=== PATIENT | female | born 1955 | race African-American/Black ===

== ENCOUNTER 2017-08-22 08:21 | Observation (INO) | payer OTHER ==
--- NOTE | 2017-08-22 08:57 | DR.GENAD ---
HPI - PCP Primary Care Physician: JEANIE - Complaint/Symptoms Chief Complaint Doctors Comments: Patient with a history of osteoarthritis of the left hip joint. She states that the tramadol is taking is not helping. Her pain level is 10/10, worse with movement,sharp and severe. Chief Complaint:: PT C/O LT HIP PAIN. PT STATES THE PAIN STARTED THIS AM AT 2AM. PT STATES SHE HAS NOT BEEN ABLE TO AMBULATE WITHOUT SEVERE PAIN. - Source History Provided: Patient - Mode of Arrival Mode of Arrival: EMS - Timing Onset of Chief Complaint: 08/22/17 PMH - PMH Past Medical History: Yes Past Medical History: Angina, Hypertension, Diabetes, Arthritis Past Surgical History: Yes Surgical History: [employer] Surgery - Family History History of Family Medical Conditions: Yes Family Medical History: Diabetes Mellitus, [place], Sudden Cardiac , Hypertension - Social History Does any household member use tobacco: No Alcohol Use: None Do you use any recreational Drugs:: No Lives With: Family Lives Where: Home - infectious screening In the last 2 months have you had wt loss of >10#?: NO Have you had fever, night sweats or hemotysis?: No Have you traveled outside the country in the last 6 months?: No Isolation: Standard ROS - Review of Systems Eyes: No Symptoms Reported ENTM: No Symptoms Reported Respiratoy: No Symptoms Reported Cardiovascular: No Symptoms Reported Gastrointestinal/Abdominal: No Symptoms Reported Genitourinary: No Symptoms Reported Neurological: No Symptoms Reported Musculoskeletal: No Symptoms Reported Integumentary: No Symptoms Reported Hematologic/Lymphatic: No Symptoms Reported Endocrine: No Symptoms Reported Psychiatric: No Symptoms Reported All Other Systems: Reviewed and Negative PE - Vital Signs Vitals: Temperature 99.7 F Pulse Rate 88 Respiratory Rate 18 Blood Pressure [Right Arm] 150/67 Blood Pressure 186/80 O2 Sat by Pulse Oximetry 96 - General Limitations: No Limitations General Appearance: Alert, In No Apparent Distress - Head Head Exam: Normal Inspection, Atraumatic - Eyes Eye exam: Normal Appearance, PERRL, EOMI - ENT ENT Exam: Normal Exam External Ear Exam: Normal External Inspection TM/Canal Exam: Bilateral Normal Nose Exam: Normal Nose Exam Mouth Exam: Normal Inspection Throat Exam: Normal Inspection - Neck Neck Exam: Normal Inspection - Chest Chest Inspection: Normal Inspection - Respiratory Respiratory Exam: Normal Lung Sounds Bilat Respiratory Exam: Bilateral Clear to Auscultation - Cardiovascular Cardiovascular Exam: Regular Rate, Normal Rhythm - Abdominal Exam Abdominal Exam: Normal Inspection, Normal Bowel Sounds Abdominal Tenderness: negative: RUQ, RLQ, LUQ, LLQ, Epigastrium, Suprapubic, Diffuse, Mild, Moderate, Severe, Other - Extremities Extremities Exam: Normal Inspection, Full ROM - Back Back Exam: Normal Inspection, Full ROM - Neurologic Neurological Exam: Alert, Oriented X3, CN II-XII Intact - Psychiatric Psychiatric Exam: Normal Affect - Skin Skin Exam: Warm, Dry, Intact MDM - Additional Information Additional Information Obtained From: Old Records Findings: generalized degenerative joint disease Course - Reevaluation 1st: Improved - Diagnosis Discharge Problem: Degenerative joint disease of left hip Qualifiers: Osteoarthritis type: unspecified Qualified Code(s): M16.12 - Unilateral primary osteoarthritis, left hip - Discharge Plan Condition: Stable - Follow ups/Referrals Follow ups/Referrals: EARL WARE [Primary Care Provider] - 3 days - Instructions
[2017-08-22] MEDS ORDERED: DEMEROL INJ IM ONE (08:59)
[2017-08-22] MEDS ORDERED: DEMEROL INJ ONE (09:00)
--- NOTE | 2017-08-22 09:53 | RAD ---
HISTORY: Diabetes Study: Single-view chest Comparison: None Findings: The trachea is midline. The cardiac silhouette is unremarkable. The lungs demonstrate a left basila r opacity concerning for pneumonia.. The bony thorax is unremarkable. IMPRESSION: 1. Probable early left lower lobe pneumonia. Reported By:
[2017-08-22] MEDS ORDERED: POTASSIUM CHLORIDE INJ 20 MEQ VIAL IV ONE (09:59)
[2017-08-22] MEDS ORDERED: D50W ABBOJECT SYR ONE (09:59)
[2017-08-22] MEDS ORDERED: ROCEPHIN VIAL 1 GM IM ONE (10:19)
[2017-08-22] MEDS ORDERED: XYLOCAINE 1 % (PLAIN) ONE (10:20)
[2017-08-22] MEDS ORDERED: ROCEPHIN VIAL 1 GM ONE (10:20)
[2017-08-22] MEDS ORDERED: SALINE 3% 15 ML NEB TX ONE (11:08)
[2017-08-22 11:10] LABS: BASOPHILS # (AUTO) 0.1 X10^3/uL (0.0-0.1); BASOPHILS % (AUTO) 0.9 % (0.2-1.0); HEMATOCRIT 40.5 % (36.0-47.0); HEMOGLOBIN 13.5 g/dL (12.0-16.0); LYMPHOCYTES # (AUTO) 1.8 X10^3/uL (1.3-2.9); LYMPHOCYTES % (AUTO) 14.2 % (21.0-51.0); MEAN CORPUSCULAR HEMOGLOBIN 27.2 pg (27.0-34.0); MEAN CORPUSCULAR HGB CONC 33.4 g/dL (33.0-35.0); MEAN CORPUSCULAR VOLUME 81.4 fL (80.0-100.0); MEAN PLATELET VOLUME 8.7 fL (7.4-11.0); MONOCYTES # (AUTO) 0.9 x10^3/uL (0.3-0.8); MONOCYTES % (AUTO) 6.9 % (0.0-13.0); NEUTROPHILS # (AUTO) 9.7 x10^3/uL (2.2-4.8); PLATELET COUNT 203 X10^3/uL (150.0-450.0); RED BLOOD COUNT 4.98 X10^6/uL (3.5-5.4); RED CELL DISTRIBUTION WIDTH 14.2 % (11.6-16.5); WHITE BLOOD COUNT 12.4 X10^3/uL (3.6-10.0)
[2017-08-22] MEDS ORDERED: SALINE 3% 15 ML NEB TX NEB ONE (11:12)
[2017-08-22 11:14] LABS: ALBUMIN 3.2 g/dL (3.4-5.0); CALCIUM 9.3 mg/dL (8.5-10.1); CARBON DIOXIDE 26.7 mmol/L (21-32); COR CA(FOR HYPOALB) 9.9 mg/dL (8.5-10.1); CREATININE 1.21 mg/dL (0.55-1.02); TOTAL PROTEIN 7.6 g/dL (6.4-8.2)
[2017-08-22] MEDS ORDERED: TYLENOL 325 MG TAB PO PRN (11:23)
[2017-08-22] MEDS ORDERED: TUSSIONEX PENNKINETIC SUSP PO PRN (11:37)
[2017-08-22] MEDS ORDERED: NITROSTAT SL PRN (11:41)
[2017-08-22] MEDS ORDERED: ZOFRAN TAB 4 MG PO PRN (11:41)
[2017-08-22] MEDS ORDERED: NS 1/2 1000 ML IV 1,000 ML IV SCH (12:00)
[2017-08-22] MEDS: DUONEB 0.5 MG/3 MG NEB SCH ×3 (14:08→21:00)
[2017-08-22] MEDS: NEURONTIN CAP 300 MG PO SCH ×2 (15:29→15:33)
[2017-08-22] MEDS: TRAMADOL HCL PO SCH ×2 (15:30→17:48)
[2017-08-22] MEDS ORDERED: NS 1/2 1000 ML IV 1,000 ML IV ONE (15:42)
[2017-08-22] MEDS: NS IV SCH ×2 (15:59)
[2017-08-22] MEDS: POTASSIUM ACETATE IV SCH ×2 (15:59)
[2017-08-22] MEDS: ROBITUSSIN DM PO SCH ×2 (17:52→21:25)
[2017-08-22] MEDS: ULTRAM PO SCH (21:16)
[2017-08-22] MEDS: PRED FORTE 1 % OP SCH (21:16)
[2017-08-22] MEDS: COMBIGAN EYE DROPS EACHEYE SCH (21:23)
[2017-08-22] MEDS: MIRALAX POWDER (1 DOSE 17GM) PO SCH (21:25)
[2017-08-22] MEDS: VIBRAMYCIN 100 MG in NS 100 ML IV + SPIKE MINIBAG* 100 ML IV SCH (21:25)
[2017-08-22] MEDS: ZANTAC PO SCH (22:44)
[2017-08-23] MEDS: PRED FORTE 1 % OP SCH ×2 (00:44→07:56)
[2017-08-23] MEDS: NEURONTIN CAP 300 MG PO SCH ×2 (00:44→05:35)
[2017-08-23] MEDS: DUONEB 0.5 MG/3 MG NEB SCH ×6 (01:40→20:22)
[2017-08-23] MEDS: ULTRAM PO SCH ×4 (02:24→21:19)
[2017-08-23] MEDS: POTASSIUM ACETATE IV SCH ×2 (04:28)
[2017-08-23] MEDS: NS IV SCH ×2 (04:28)
[2017-08-23 05:41] LABS: BASOPHILS % (AUTO) 0.4 % (0.2-1.0); EOSINOPHILS # (AUTO) 0.1 x10^3/uL (0.0-0.2); HEMATOCRIT 35.2 % (36.0-47.0); HEMOGLOBIN 11.8 g/dL (12.0-16.0); LYMPHOCYTES # (AUTO) 2.3 X10^3/uL (1.3-2.9); LYMPHOCYTES % (AUTO) 21.8 % (21.0-51.0); MEAN CORPUSCULAR HEMOGLOBIN 27.2 pg (27.0-34.0); MEAN CORPUSCULAR HGB CONC 33.5 g/dL (33.0-35.0); MEAN CORPUSCULAR VOLUME 81.3 fL (80.0-100.0); MEAN PLATELET VOLUME 9.1 fL (7.4-11.0); MONOCYTES # (AUTO) 0.9 x10^3/uL (0.3-0.8); MONOCYTES % (AUTO) 8.7 % (0.0-13.0); NEUTROPHILS # (AUTO) 7.3 x10^3/uL (2.2-4.8); NEUTROPHILS % (AUTO) 68.1 % (42.0-75.0); PLATELET COUNT 171 X10^3/uL (150.0-450.0); RED BLOOD COUNT 4.33 X10^6/uL (3.5-5.4); RED CELL DISTRIBUTION WIDTH 14.1 % (11.6-16.5); WHITE BLOOD COUNT 10.7 X10^3/uL (3.6-10.0)
[2017-08-23 05:49] LABS: ALBUMIN 2.6 g/dL (3.4-5.0); CALCIUM 8.5 mg/dL (8.5-10.1); CARBON DIOXIDE 27.9 mmol/L (21-32); COR CA(FOR HYPOALB) 9.6 mg/dL (8.5-10.1); CREATININE 1.19 mg/dL (0.55-1.02); TOTAL PROTEIN 6.8 g/dL (6.4-8.2)
--- NOTE | 2017-08-23 06:06 | RAD ---
Examination: Portable AP chest History: Cough Comparison reference 08/22/2017 Findings: Persistent normal heart size with retrocardiac density consistent with airspace disease. Sl ight improvement is suggested, however. No new abnormality identified. Impression: Persistent left lower lobe infiltrate with slight interval improvement. Reported By:
[2017-08-23] MEDS ORDERED: NEURONTIN CAP 300 MG PO PRN (08:02)
[2017-08-23] MEDS: VIBRAMYCIN 100 MG in NS 100 ML IV + SPIKE MINIBAG* 100 ML IV SCH ×2 (08:55→21:18)
[2017-08-23] MEDS: ROBITUSSIN DM PO SCH ×4 (08:56→21:18)
[2017-08-23] MEDS: MIRALAX POWDER (1 DOSE 17GM) PO SCH ×2 (08:56→21:22)
[2017-08-23] MEDS: CHLORTHALIDONE PO SCH (08:57)
[2017-08-23] MEDS: NexIUM PO SCH ×2 (08:57→08:58)
[2017-08-23] MEDS: ZANTAC PO SCH ×2 (08:57→21:19)
[2017-08-23] MEDS ORDERED: CATAPRES TAB 0.1 MG PO SCH (09:00)
[2017-08-23] MEDS ORDERED: ROCEPHIN VIAL 1 GM 1 GM in NS 50 ML IV + SPIKE MINIBAG* 50 ML IV SCH ×2 (09:00→09:30)
[2017-08-23] MEDS: ROCEPHIN 1 GM IV PREMIX 1 GM/50 ML IV.SOLN. IV SCH (11:52)
[2017-08-23 14:44] VITALS: BMI 38.6
[2017-08-23] MEDS: NS 1/2 + KCL 20 MEQ/L 1,000 ML IV SCH (15:09)
[2017-08-23] MEDS ORDERED: CATAPRES TAB 0.1 MG PO PRN (15:34)
[2017-08-23] MEDS: COMBIGAN EYE DROPS EACHEYE SCH ×2 (17:42→21:21)
[2017-08-24] MEDS: DUONEB 0.5 MG/3 MG NEB SCH ×5 (01:02→17:01)
[2017-08-24] MEDS: NS 1/2 + KCL 20 MEQ/L 1,000 ML IV SCH ×2 (03:21→15:29)
[2017-08-24] MEDS: ULTRAM PO SCH ×3 (03:21→13:45)
[2017-08-24 07:20] LABS: BASOPHILS % (AUTO) 0.4 % (0.2-1.0); EOSINOPHILS # (AUTO) 0.1 x10^3/uL (0.0-0.2); HEMATOCRIT 33.3 % (36.0-47.0); HEMOGLOBIN 11.1 g/dL (12.0-16.0); LYMPHOCYTES # (AUTO) 2.3 X10^3/uL (1.3-2.9); MEAN CORPUSCULAR HEMOGLOBIN 27.2 pg (27.0-34.0); MEAN CORPUSCULAR HGB CONC 33.3 g/dL (33.0-35.0); MEAN CORPUSCULAR VOLUME 81.7 fL (80.0-100.0); MEAN PLATELET VOLUME 9.4 fL (7.4-11.0); MONOCYTES # (AUTO) 0.7 x10^3/uL (0.3-0.8); MONOCYTES % (AUTO) 8.3 % (0.0-13.0); NEUTROPHILS # (AUTO) 5.7 x10^3/uL (2.2-4.8); NEUTROPHILS % (AUTO) 64.3 % (42.0-75.0); PLATELET COUNT 142 X10^3/uL (150.0-450.0); RED BLOOD COUNT 4.08 X10^6/uL (3.5-5.4); RED CELL DISTRIBUTION WIDTH 14.5 % (11.6-16.5); WHITE BLOOD COUNT 8.9 X10^3/uL (3.6-10.0)
[2017-08-24 07:29] LABS: BLOOD UREA NITROGEN 17 mg/dL (7-18); CALCIUM 8.4 mg/dL (8.5-10.1); CARBON DIOXIDE 29.5 mmol/L (21-32); CHLORIDE 95 mmol/L (98-107); COR NA(FOR HYPERGLY) 139 mmol/L (136-145); CREATININE 1.16 mg/dL (0.55-1.02); SODIUM 132 mmol/L (136-145); eGFR BLACK RACES > 60 (>60); eGFR NON BLACK RACES 50 (>60)
[2017-08-24 08:02] LABS: ALANINE AMINOTRANSFERASE 32 Units/L (12-78); ALBUMIN 2.7 g/dL (3.4-5.0); ALKALINE PHOSPHATASE 96 Units/L (46-116); ASPARTATE AMINO TRANSFERASE 51 Units/L (15-37); COR CA(FOR HYPOALB) 9.4 mg/dL (8.5-10.1); TOTAL PROTEIN 6.8 g/dL (6.4-8.2)
[2017-08-24] MEDS: VIBRAMYCIN 100 MG in NS 100 ML IV + SPIKE MINIBAG* 100 ML IV SCH (08:56)
[2017-08-24] MEDS: ROBITUSSIN DM PO SCH ×3 (08:56→16:48)
[2017-08-24] MEDS: ZANTAC PO SCH (08:56)
[2017-08-24] MEDS: CHLORTHALIDONE PO SCH (08:58)
[2017-08-24] MEDS: NexIUM PO SCH ×2 (08:58→09:00)
[2017-08-24] MEDS: ROCEPHIN 1 GM IV PREMIX 1 GM/50 ML IV.SOLN. IV SCH (09:01)
[2017-08-24] MEDS: COMBIGAN EYE DROPS EACHEYE SCH (09:01)
[2017-08-24] MEDS: MIRALAX POWDER (1 DOSE 17GM) PO SCH (09:01)
[2017-08-24 16:21] VITALS: BP 183/82
== END 2017-08-24 19:45 | disposition home or self-care (01) ==
LOC: ER 08:32 → MED/SURG 11:35
PROVIDERS: ADMIT Internal Medicine; ATTEND Internal Medicine
DX: J18.9 Pneumonia, unspecified organism (principal); M16.12 Unilateral primary osteoarthritis, left hip; I10 Essential (primary) hypertension; E11.9 Type 2 diabetes mellitus without complications
CPT/HCPCS: 36415; 71010; 71020; 80053; 82947; 85025; 87040; 87070; 87205; 94640; 94760; 96365; 96372; 99217; 99218; 99284; 99285; A4222; J7030; G0378; J0696; J1815; J2001; J2175; J3480; J3490; J7620

== ENCOUNTER 2017-11-24 09:29 | Emergency (ER) | payer OTHER, MEDICAID ==
[2017-11-24 09:41] VITALS: BP 131/69; BMI 37.9
[2017-11-24] MEDS ORDERED: BENTYL I.M. INJ 10 MG IM ONE ×2 (10:22→10:27)
[2017-11-24] MEDS ORDERED: NS 1000 ML 1,000 ML IV ONE (10:22)
[2017-11-24] MEDS ORDERED: LEVSIN/MAALOX/LIDOC VISC PO ONE (10:23)
--- NOTE | 2017-11-24 10:23 | ED.ABDFE ---
HPI - Time seen Time seen: 10:18 - PCP Primary Care Physician: LORAINE - Complaint Chief Complaint Doctors Comments: Patient presents with complaint of vomiting x 3 on last night and diarrhea. She denies fever. She admits to a history of GERD takes zofran. Chief Complaint:: PT BEEN UP ALL NIGHT WITH DIARREHA , VOMITING AND ABD. PAIN. - Source History Provided: Patient, Family Member - Mode of arrival Mode of Arrival: Wheelchair - Timing Onset of Chief Complaint: 11/24/17 PMH - PMH Past Medical History: Yes Past Medical History: Angina, Hypertension, Diabetes, Arthritis Past Surgical History: Yes Surgical History: Cholecystectomy, [employer] Surgery - Family History History of Family Medical Conditions: Yes Family Medical History: Diabetes Mellitus, Hypertension - Social History Does any household member use tobacco: No Alcohol Use: None Do you use any recreational Drugs:: No Lives With: Family Lives Where: Home - infectious screening In the last 2 months have you had wt loss of >10#?: NO Have you had fever, night sweats or hemotysis?: No Have you traveled outside the country in the last 6 months?: No Isolation: Standard ROS - Review of Systems Eyes: No Symptoms Reported ENTM: No Symptoms Reported Respiratoy: No Symptoms Reported Cardiovascular: No Symptoms Reported Gastrointestinal/Abdominal: No Symptoms Reported Genitourinary: No Symptoms Reported Neurological: No Symptoms Reported Musculoskeletal: No Symptoms Reported Integumentary: No Symptoms Reported Hematologic/Lymphatic: No Symptoms Reported Endocrine: No Symptoms Reported Psychiatric: No Symptoms Reported All Other Systems: Reviewed and Negative PE - Vital Signs Vitals: Temperature 97.1 F Pulse Rate 71 Respiratory Rate 22 Blood Pressure [Left Arm] 134/72 Blood Pressure [Right Arm] 183/82 Blood Pressure 131/69 O2 Sat by Pulse Oximetry 98 - General Limitations: No Limitations General Appearance: Alert, In No Apparent Distress - Head Head Exam: Normal Inspection, Atraumatic - Eyes Eye exam: Normal Appearance, PERRL, EOMI - ENT ENT Exam: Normal Exam - Neck Neck Exam: Normal Inspection - Chest Chest Inspection: Normal Inspection - Respiratory Respiratory Exam: Normal Lung Sounds Bilat Respiratory Exam: Bilateral Clear to Auscultation - Cardiovascular Cardiovascular Exam: Regular Rate, Normal Rhythm - Abdominal Exam Abdominal Exam: Normal Inspection Abdominal Tenderness: negative: RUQ, RLQ, LUQ, LLQ, Epigastrium, Suprapubic, Diffuse, Mild, Moderate, Severe, Other - Rectal Rectal Exam: Deferred - Back Back Exam: Normal Inspection - Extremeties Extremities Exam: Normal Inspection, Full ROM - External Exam: Female: Deferred : Speculum Exam (Female): Deferred : Bimanual Exam (female): Deferred - Neurologic Neurological Exam: Alert, Oriented X3, CN II-XII Intact - Psychiatric Psychiatric Exam: Normal Affect, Normal Mood - Skin Skin Exam: Warm, Dry Course - Reevaluation 1st: Improved - Education/Counseling Educated On: Treatment, Diagnosis, Prognosis, Needs for Follow Up ROR - Labs Reviewed Result Diagrams: 11/24/17 11:00 11/24/17 11:00 Laboratory: WBC 7.5 X10^3/uL (3.6-10.0) 11/24/17 11:00 RBC 6.05 X10^6/uL (3.5-5.4) H 11/24/17 11:00 Hgb 16.5 g/dL (12.0-16.0) H 11/24/17 11:00 Hct 49.7 % (36.0-47.0) H 11/24/17 11:00 MCV 82.2 fL (80.0-100.0) 11/24/17 11:00 MCH 27.3 pg (27.0-34.0) 11/24/17 11:00 MCHC 33.2 g/dL (33.0-35.0) 11/24/17 11:00 RDW 14.0 % (11.6-16.5) 11/24/17 11:00 Plt Count 266 X10^3/uL (150.0-450.0) 11/24/17 11:00 MPV 9.1 fL (7.4-11.0) 11/24/17 11:00 Neut % 61.3 % (42.0-75.0) 11/24/17 11:00 Lymph % 33.9 % (21.0-51.0) 11/24/17 11:00 [place]ton % 3.7 % (0.0-13.0) 11/24/17 11:00 Eos % 0.6 % (0.9-2.9) L 11/24/17 11:00 Baso % 0.5 % (0.2-1.0) 11/24/17 11:00 Neut # 4.6 x10^3/uL (2.2-4.8) 11/24/17 11:00 Lymph # 2.5 X10^3/uL (1.3-2.9) 11/24/17 11:00 Carlton # 0.3 x10^3/uL (0.3-0.8) 11/24/17 11:00 Eos # 0.0 x10^3/uL (0.0-0.2) 11/24/17 11:00 Baso # 0.0 X10^3/uL (0.0-0.1) 11/24/17 11:00 Absolute Nucleated RBC 0.2 /100WBC 11/24/17 11:00 Sodium 131 mmol/L (136-145) L 11/24/17 11:00 Corrected Sodium 138 mmol/L (136-145) 11/24/17 11:00 Potassium 3.6 mmol/L (3.5-5.1) 11/24/17 11:00 Chloride 95 mmol/L (98-107) L 11/24/17 11:00 Carbon Dioxide 24.9 mmol/L (21-32) 11/24/17 11:00 BUN 11 mg/dL (7-18) 11/24/17 11:00 Creatinine 1.24 mg/dL (0.55-1.02) H 11/24/17 11:00 Est GFR (MDRD) Af Amer 57 (>60) L 11/24/17 11:00 Est GFR (MDRD) Non-Af 47 (>60) L 11/24/17 11:00 Glucose 406 mg/dL (65-99) H 11/24/17 11:00 Calcium 8.8 mg/dL (8.5-10.1) 11/24/17 11:00 Corrected Calcium 9.4 mg/dL (8.5-10.1) 11/24/17 11:00 Total Bilirubin 0.50 mg/dL (0.2-1.0) 11/24/17 11:00 AST 15 Units/L (15-37) 11/24/17 11:00 ALT 11 Units/L (12-78) L 11/24/17 11:00 Alkaline Phosphatase 87 Units/L (46-116) 11/24/17 11:00 Total Protein 7.6 g/dL (6.4-8.2) 11/24/17 11:00 Albumin 3.2 g/dL (3.4-5.0) L 11/24/17 11:00 Globulin 4.4 g/dL (2.5-4.5) 11/24/17 11:00 Albumin/Globulin Ratio 0.7 Ratio (1.1-2.1) L 11/24/17 11:00 H. pylori IgG Antibody Positive (NEGATIVE) A 11/24/17 11:00 - Diagnosis Discharge Problem: Helicobacter pylori gastritis - Discharge Plan Condition: Stable Prescriptions: Amoxicillin [AMOXIL CAP 500 MG *] 1,000 mg PO BID #56 cap Clarithromycin [CLARITHROMYCIN 500 MG TAB *] 500 mg PO Q12H #28 tab Lansoprazole [Lansoprazole 30 mg] 30 mg PO DAILY #30 cap - Follow ups/Referrals Follow ups/Referrals: EARL WARE [Primary Care Provider] - 3 days - Instructions
[2017-11-24] MEDS ORDERED: NS 1000 ML 1,000 ML ONE (10:26)
[2017-11-24] MEDS ORDERED: LEVSIN/MAALOX/LIDOC VISC ONE (10:27)
[2017-11-24 11:25] LABS: BASOPHILS % (AUTO) 0.5 % (0.2-1.0); EOSINOPHILS % (AUTO) 0.6 % (0.9-2.9); HEMATOCRIT 49.7 % (36.0-47.0); HEMOGLOBIN 16.5 g/dL (12.0-16.0); LYMPHOCYTES # (AUTO) 2.5 X10^3/uL (1.3-2.9); LYMPHOCYTES % (AUTO) 33.9 % (21.0-51.0); MEAN CORPUSCULAR HEMOGLOBIN 27.3 pg (27.0-34.0); MEAN CORPUSCULAR HGB CONC 33.2 g/dL (33.0-35.0); MEAN CORPUSCULAR VOLUME 82.2 fL (80.0-100.0); MEAN PLATELET VOLUME 9.1 fL (7.4-11.0); MONOCYTES # (AUTO) 0.3 x10^3/uL (0.3-0.8); MONOCYTES % (AUTO) 3.7 % (0.0-13.0); NEUTROPHILS # (AUTO) 4.6 x10^3/uL (2.2-4.8); NEUTROPHILS % (AUTO) 61.3 % (42.0-75.0); PLATELET COUNT 266 X10^3/uL (150.0-450.0); RED BLOOD COUNT 6.05 X10^6/uL (3.5-5.4); WHITE BLOOD COUNT 7.5 X10^3/uL (3.6-10.0)
[2017-11-24 11:33] LABS: ALBUMIN 3.2 g/dL (3.4-5.0); CALCIUM 8.8 mg/dL (8.5-10.1); CARBON DIOXIDE 24.9 mmol/L (21-32); COR CA(FOR HYPOALB) 9.4 mg/dL (8.5-10.1); CREATININE 1.24 mg/dL (0.55-1.02); TOTAL PROTEIN 7.6 g/dL (6.4-8.2)
[2017-11-24] MEDS ORDERED: HumuLIN R SUBCUT ONE (11:40)
[2017-11-24] MEDS ORDERED: HumuLIN R ONE (11:50)
[2017-11-24] MEDS ORDERED: SNACK - Diabetic Appropriate PO SCH (20:00)
== END 2017-11-24 12:48 | disposition home or self-care (01) ==
LOC: ER 10:04
DX: R10.84 Generalized abdominal pain (principal); B96.81 Helicobacter pylori [H. pylori] as the cause of diseases classified elsewhere
CPT/HCPCS: 36415; 80053; 85025; 86677; 96365; 96372; 99282; 99283; A4222; J0500; J1815

== ENCOUNTER 2017-12-16 12:33 | Inpatient (IN) | payer OTHER, MEDICAID ==
[2017-12-16 16:16] VITALS: BMI 38.9
[2017-12-16] MEDS: DUONEB 0.5 MG/3 MG NEB SCH ×2 (16:41→21:17)
[2017-12-16] MEDS ORDERED: NS 250 ML IV 250 ML IV ONE (17:33)
[2017-12-16] MEDS ORDERED: ZITHROMAX INJ 500 MG VIAL IV ONE (17:34)
[2017-12-16] MEDS: CATAPRES TAB 0.1 MG PO PRN (17:42)
[2017-12-16] MEDS: CHLORTHALIDONE PO SCH (17:42)
[2017-12-16] MEDS: HumuLIN R SUBCUT PRN ×2 (17:42→21:22)
[2017-12-16] MEDS: ROBITUSSIN DM PO SCH ×2 (17:42→21:20)
[2017-12-16] MEDS: ZITHROMAX INJ 500 MG VIAL 500 MG in NS 250 ML IV 250 ML IV SCH (17:44)
[2017-12-16] MEDS: COMBIGAN EYE DROPS EACHEYE SCH ×2 (17:45→21:47)
[2017-12-16 17:47] LABS: BASOPHILS # (AUTO) 0.1 X10^3/uL (0.0-0.1); BASOPHILS % (AUTO) 1.1 % (0.2-1.0); EOSINOPHILS # (AUTO) 0.1 x10^3/uL (0.0-0.2); HEMATOCRIT 37.6 % (36.0-47.0); HEMOGLOBIN 12.7 g/dL (12.0-16.0); LYMPHOCYTES # (AUTO) 3.7 X10^3/uL (1.3-2.9); LYMPHOCYTES % (AUTO) 57.7 % (21.0-51.0); MEAN CORPUSCULAR HEMOGLOBIN 26.9 pg (27.0-34.0); MEAN CORPUSCULAR HGB CONC 33.9 g/dL (33.0-35.0); MEAN CORPUSCULAR VOLUME 79.6 fL (80.0-100.0); MEAN PLATELET VOLUME 8.8 fL (7.4-11.0); MONOCYTES # (AUTO) 0.4 x10^3/uL (0.3-0.8); MONOCYTES % (AUTO) 5.8 % (0.0-13.0); NEUTROPHILS # (AUTO) 2.1 x10^3/uL (2.2-4.8); NEUTROPHILS % (AUTO) 33.4 % (42.0-75.0); PLATELET COUNT 291 X10^3/uL (150.0-450.0); RED BLOOD COUNT 4.73 X10^6/uL (3.5-5.4); RED CELL DISTRIBUTION WIDTH 13.8 % (11.6-16.5); WHITE BLOOD COUNT 6.4 X10^3/uL (3.6-10.0)
[2017-12-16 17:50] LABS: ALANINE AMINOTRANSFERASE 20 Units/L (12-78); ALBUMIN 3.3 g/dL (3.4-5.0); ALKALINE PHOSPHATASE 91 Units/L (46-116); ASPARTATE AMINO TRANSFERASE 21 Units/L (15-37); BLOOD UREA NITROGEN 9 mg/dL (7-18); CARBON DIOXIDE 31.4 mmol/L (21-32); CHLORIDE 100 mmol/L (98-107); COR CA(FOR HYPOALB) 9.6 mg/dL (8.5-10.1); COR NA(FOR HYPERGLY) 139 mmol/L (136-145); CREATININE 0.85 mg/dL (0.55-1.02); SODIUM 138 mmol/L (136-145); eGFR BLACK RACES > 60 (>60); eGFR NON BLACK RACES > 60 (>60)
--- NOTE | 2017-12-16 18:34 | DR.H&P ---
H&P - History & Physical for Day of: H&P Date: 12/16/17 - Chief Complaint Chief Complaint: FEVER, CCC, SOB - Allergies Allergies/Adverse Reactions: Allergies Allergy/AdvReac Type Severity Reaction Status Date / Time GISEL Inhibitors Allergy Verified 11/24/17 09:42 codeine Allergy Verified 11/24/17 09:42 hydrocodone Allergy Verified 11/24/17 09:42 insulin detemir Allergy Verified 11/24/17 09:42 [From Levemir] iodine Allergy Verified 11/24/17 09:42 ketorolac [From Toradol] Allergy Verified 11/24/17 09:42 olmesartan [From Benicar] Allergy Verified 11/24/17 09:42 insulin glargine AdvReac Verified 11/24/17 09:42 [From Lantus] - History of Present Illness History of Present Illness: 62 BF DIRECT ADMIT FROM DR FOFANA OFFICE WITH CO CCC AND FEVER X 2 WEEKS. PT TOOK ZPAK WITHOUT IMPROVEMENT. PT HAS HX OF PNEUMONIA THIS PAST YEAR. PT HAS PMH OF DM, HTN, OA. PT CO INCREASED SOB AND FATIGUE. PT ADMITTED FOR RESP THERAPY IV ATBX - Past Medical History Past Medical History: Angina, Hypertension, Diabetes, Arthritis - Past Surgical History Surgical History: Hysterectomy, Other - Family History Family Medical History: Cancer, Hypertension - Social History Alcohol Use: None Drug Use: None - Medications Home Medications: Brimonidine Tartrate-Timolol M [Combigan Eye Drops] 1 drop EACHEYE BID 12/16/17 [History Confirmed 12/16/17] Chlorthalidone [HYGROTON 25 mg tab *] 25 mg PO DAILY 12/16/17 [History Confirmed 12/16/17] Clonidine HCl [Catapres Tab 0.1 mg] 0.1 mg PO PRN PRN 12/16/17 [History Confirmed 12/16/17] Esomeprazole Magnesium [Nexium] 40 mg PO DAILY 12/16/17 [History Confirmed 12/16] Fluticasone Nasal [place] [FLONASE NASAL SPRAY *] 2 sprays ENOSTRIL BID 12/16/17 [ History Confirmed 12/16/17] Insulin 70/30 Isophane/Regular [Humulin 70/30] 75 units SC BID 12/16/17 [ History Confirmed 12/16/17] Nitroglycerin Sublingual [NITROSTAT SUBLING TAB 0.4 MG *] 0.4 mg SL PRN PRN [History Confirmed 12/16/17] Polyethylene Glycol Pwd Ud [MIRALAX POWDER (17 GM DOSE) *] 17 gm PO HS 12/16/17 [History Confirmed 12/16/17] Ranitidine HCl [ZANTAC TAB 150 MG *] 150 mg PO BID 12/16/17 [History Confirmed 12/16/17] Tramadol HCl [ULTRAM 50 MG *] 100 mg PO TID PRN 12/16/17 [History Confirmed ] - Review of Systems Constitutional: Fever, Malaise Eyes: No Symptoms Reported ENT: No Symptoms Reported Respiratory: Cough, Shortness of Breath, SOB with Excertion, Sputum, Wheezing Cardiovascular: No Symptoms Reported Gastrointestinal: Nausea Genitourinary: No Symptoms Reported Musculoskeletal: Back Pain Skin: No Symptoms Reported Neurological: No Symptoms Reported - Physical Exam Vital Signs: Temperature 98.5 F Pulse Rate [Right Brachial] 62 Respiratory Rate 19 Blood Pressure [Left Arm] 200/90 Blood Pressure [Right Arm] 183/82 Blood Pressure 131/69 O2 Sat by Pulse Oximetry 98 Oriented: Normal Eyes: Normal Ear: Normal Nose: Normal Throat: Normal Respiratory: Rhonchi Throughout, RLL Diminished, LLL Diminished Cardiovascular: Normal : Normal Auscultation: Bowel Sounds: Normal Tenderness: Normal Skin: Normal Musculoskeletal: Back:Thoracic, Back:Lumbar Psychiatric: Anxiety Affect: Anxious Speech Pattern: Clear, Appropriate - Assessment/Plan (1) Bronchitis Status: Acute Plan: ACUTE BRONCHITIS, FAILED OPT, R/O PNEUMONIA. ADMIT PNEUMONIA PATHWAY, BLOOD AND SPUTUM CULTURES. IV ATBX, RESP, THERAPY CXR ON ADMISSION. SUPPLMENTAL O2, RESUME HOME MEDS. BP CONTROL, BLOOD SUGAR MONITORING, SSI (2) Diabetes Status: Acute (3) Hypertension Status: Acute
[2017-12-16] MEDS: PULMICORT NEB TX 0.5 MG NEB SCH (21:18)
[2017-12-16] MEDS: MIRALAX POWDER (1 DOSE 17GM) PO SCH (21:21)
[2017-12-16] MEDS: ZANTAC PO SCH (21:21)
[2017-12-16] MEDS: SNACK - Diabetic Appropriate PO SCH (21:47)
--- NOTE | 2017-12-16 22:07 | RAD ---
Chest, two views Indication: Cough, shortness of breath, COPD, bronchitis Comparison: 08/24/2017 Findings: Heart size is normal. There is mild peribronchial thickening. No focal consolidation, signi ficant effusion or pneumothorax is identified. There is no acute osseous abnormality. Impression: Mild peribronchial thickening, suggestive for bronchitis. Reported By:
[2017-12-17] MEDS: DUONEB 0.5 MG/3 MG NEB SCH ×6 (00:36→21:22)
[2017-12-17] MEDS: CATAPRES TAB 0.1 MG PO PRN ×2 (00:36→21:16)
[2017-12-17] MEDS: ULTRAM PO PRN ×2 (00:59→22:01)
[2017-12-17] MEDS: HumuLIN R SUBCUT PRN ×3 (06:10→17:01)
[2017-12-17 06:20] LABS: BASOPHILS # (AUTO) 0.1 X10^3/uL (0.0-0.1); EOSINOPHILS # (AUTO) 0.2 x10^3/uL (0.0-0.2); EOSINOPHILS % (AUTO) 2.5 % (0.9-2.9); HEMATOCRIT 33.8 % (36.0-47.0); HEMOGLOBIN 11.4 g/dL (12.0-16.0); LYMPHOCYTES # (AUTO) 3.5 X10^3/uL (1.3-2.9); LYMPHOCYTES % (AUTO) 58.2 % (21.0-51.0); MEAN CORPUSCULAR HEMOGLOBIN 27.3 pg (27.0-34.0); MEAN CORPUSCULAR HGB CONC 33.9 g/dL (33.0-35.0); MEAN CORPUSCULAR VOLUME 80.7 fL (80.0-100.0); MEAN PLATELET VOLUME 9.2 fL (7.4-11.0); MONOCYTES # (AUTO) 0.4 x10^3/uL (0.3-0.8); NEUTROPHILS # (AUTO) 1.9 x10^3/uL (2.2-4.8); NEUTROPHILS % (AUTO) 32.3 % (42.0-75.0); PLATELET COUNT 253 X10^3/uL (150.0-450.0); RED BLOOD COUNT 4.19 X10^6/uL (3.5-5.4)
[2017-12-17 06:32] LABS: ALANINE AMINOTRANSFERASE 18 Units/L (12-78); ALBUMIN 2.9 g/dL (3.4-5.0); ALKALINE PHOSPHATASE 78 Units/L (46-116); ASPARTATE AMINO TRANSFERASE 18 Units/L (15-37); BLOOD UREA NITROGEN 11 mg/dL (7-18); CALCIUM 8.2 mg/dL (8.5-10.1); CARBON DIOXIDE 29.4 mmol/L (21-32); CHLORIDE 99 mmol/L (98-107); COR CA(FOR HYPOALB) 9.1 mg/dL (8.5-10.1); COR NA(FOR HYPERGLY) 140 mmol/L (136-145); CREATININE 0.94 mg/dL (0.55-1.02); MAGNESIUM 1.5 mg/dL (1.7-2.9); SODIUM 136 mmol/L (136-145); TOTAL PROTEIN 7.1 g/dL (6.4-8.2); eGFR BLACK RACES > 60 (>60); eGFR NON BLACK RACES > 60 (>60)
[2017-12-17] MEDS ORDERED: POTASSIUM CHL 40 MEQ/NS 0.45% 500 ML IV PRN (07:24)
[2017-12-17] MEDS ORDERED: MAG-OX TAB PO PRN (07:24)
[2017-12-17] MEDS ORDERED: K-LYTE EFFERVESCENT PO PRN (07:24)
[2017-12-17] MEDS ORDERED: POTASSIUM CHL 60 MEQ/NS 0.45% 500 ML IV PRN (07:24)
[2017-12-17] MEDS ORDERED: POTASSIUM CHLORIDE LIQ 20 MEQ UDC PO PRN (07:24)
[2017-12-17] MEDS ORDERED: MAGNESIUM SULFATE 1 GM/100 mL PREMIX 1 GM/100 ML BAG IV PRN (07:24)
[2017-12-17] MEDS ORDERED: K-RIDER 10 MEQ/NS 100 ML 10 MEQ/100 ML BAG IV PRN (07:24)
[2017-12-17] MEDS: PULMICORT NEB TX 0.5 MG NEB SCH ×2 (08:15→21:22)
[2017-12-17] MEDS: COMBIGAN EYE DROPS EACHEYE SCH ×2 (08:46→21:17)
[2017-12-17] MEDS: ZITHROMAX INJ 500 MG VIAL 500 MG in NS 250 ML IV 250 ML IV SCH (08:46)
[2017-12-17] MEDS: NexIUM PO SCH ×2 (08:47→10:59)
[2017-12-17] MEDS: ZANTAC PO SCH ×2 (08:47→21:16)
[2017-12-17] MEDS: CHLORTHALIDONE PO SCH (08:48)
[2017-12-17] MEDS: ROBITUSSIN DM PO SCH ×4 (10:59→21:17)
[2017-12-17] MEDS ORDERED: NS 250 ML IV 250 ML IV ONE (14:12)
[2017-12-17] MEDS ORDERED: MUCOMYST 20% 200 MG/ML NEB SCH (18:00)
[2017-12-17] MEDS: NORVASC TAB 5 MG PO SCH (18:14)
[2017-12-17] MEDS: SNACK - Diabetic Appropriate PO SCH (21:17)
[2017-12-17] MEDS: MIRALAX POWDER (1 DOSE 17GM) PO SCH (21:17)
[2017-12-17] MEDS: MUCOMYST 20% 200 MG/ML NEB SCH (21:22)
[2017-12-18] MEDS: DUONEB 0.5 MG/3 MG NEB SCH ×6 (00:40→21:19)
[2017-12-18] MEDS: MUCOMYST 20% 200 MG/ML NEB SCH ×5 (00:41→21:19)
[2017-12-18 05:30] LABS: BASOPHILS # (AUTO) 0.1 X10^3/uL (0.0-0.1); BASOPHILS % (AUTO) 1.3 % (0.2-1.0); EOSINOPHILS # (AUTO) 0.2 x10^3/uL (0.0-0.2); EOSINOPHILS % (AUTO) 3.7 % (0.9-2.9); HEMATOCRIT 37.1 % (36.0-47.0); HEMOGLOBIN 12.7 g/dL (12.0-16.0); LYMPHOCYTES # (AUTO) 3.3 X10^3/uL (1.3-2.9); LYMPHOCYTES % (AUTO) 54.6 % (21.0-51.0); MEAN CORPUSCULAR HEMOGLOBIN 27.4 pg (27.0-34.0); MEAN CORPUSCULAR HGB CONC 34.2 g/dL (33.0-35.0); MEAN CORPUSCULAR VOLUME 80.1 fL (80.0-100.0); MEAN PLATELET VOLUME 8.9 fL (7.4-11.0); MONOCYTES # (AUTO) 0.5 x10^3/uL (0.3-0.8); MONOCYTES % (AUTO) 8.3 % (0.0-13.0); NEUTROPHILS # (AUTO) 1.9 x10^3/uL (2.2-4.8); NEUTROPHILS % (AUTO) 32.1 % (42.0-75.0); PLATELET COUNT 284 X10^3/uL (150.0-450.0); RED BLOOD COUNT 4.63 X10^6/uL (3.5-5.4); RED CELL DISTRIBUTION WIDTH 13.9 % (11.6-16.5)
[2017-12-18 05:33] LABS: ALANINE AMINOTRANSFERASE 18 Units/L (12-78); ALBUMIN 3.2 g/dL (3.4-5.0); ALKALINE PHOSPHATASE 84 Units/L (46-116); ASPARTATE AMINO TRANSFERASE 16 Units/L (15-37); BLOOD UREA NITROGEN 10 mg/dL (7-18); CALCIUM 8.7 mg/dL (8.5-10.1); CARBON DIOXIDE 29.3 mmol/L (21-32); CHLORIDE 100 mmol/L (98-107); COR CA(FOR HYPOALB) 9.3 mg/dL (8.5-10.1); CREATININE 0.88 mg/dL (0.55-1.02); SODIUM 139 mmol/L (136-145); TOTAL PROTEIN 7.9 g/dL (6.4-8.2); eGFR BLACK RACES > 60 (>60); eGFR NON BLACK RACES > 60 (>60)
--- NOTE | 2017-12-18 06:59 | RAD ---
HISTORY: Cough, shortness of breath Study: Chest AP portable Comparison: 12/16/2017 Findings: The heart is enlarged. No congestive heart failure is noted. No acute alveolar infiltrates or pleural effusions are identified. The previously noted peribronchial thickening is no longer identified. The bony thorax is unremarkable. IMPRESSION: Mild cardiomegaly without congestive heart failure Lungs now clear Reported By:
[2017-12-18] MEDS: PULMICORT NEB TX 0.5 MG NEB SCH ×2 (09:00→21:19)
[2017-12-18] MEDS ORDERED: BENADRYL INJ 50 MG VIAL IVP ONE (09:28)
[2017-12-18] MEDS: ZANTAC PO SCH ×2 (09:42→21:15)
[2017-12-18] MEDS: NexIUM PO SCH (09:42)
[2017-12-18] MEDS: CHLORTHALIDONE PO SCH (09:43)
[2017-12-18] MEDS: ROBITUSSIN DM PO SCH ×4 (09:43→21:15)
[2017-12-18] MEDS: NORVASC TAB 5 MG PO SCH (09:43)
[2017-12-18] MEDS: ZITHROMAX INJ 500 MG VIAL 500 MG in NS 250 ML IV 250 ML IV SCH (09:45)
[2017-12-18] MEDS: COMBIGAN EYE DROPS EACHEYE SCH ×2 (09:45→21:15)
[2017-12-18] MEDS ORDERED: NexIUM PO PRN (10:00)
[2017-12-18] MEDS: SNACK - Diabetic Appropriate PO SCH (20:00)
[2017-12-18] MEDS ORDERED: NORVASC TAB 5 MG PO SCH (21:00)
[2017-12-18] MEDS ORDERED: BENADRYL INJ 50 MG VIAL IVP NR (21:00)
[2017-12-18] MEDS: MIRALAX POWDER (1 DOSE 17GM) PO SCH (21:15)
[2017-12-18] MEDS: ULTRAM PO PRN (21:15)
[2017-12-19] MEDS: MUCOMYST 20% 200 MG/ML NEB SCH ×3 (01:17→09:19)
[2017-12-19] MEDS: DUONEB 0.5 MG/3 MG NEB SCH ×3 (01:17→09:20)
[2017-12-19 05:52] LABS: ALANINE AMINOTRANSFERASE 16 Units/L (12-78); ALKALINE PHOSPHATASE 79 Units/L (46-116); ASPARTATE AMINO TRANSFERASE 17 Units/L (15-37); BLOOD UREA NITROGEN 10 mg/dL (7-18); CALCIUM 8.7 mg/dL (8.5-10.1); CARBON DIOXIDE 28.1 mmol/L (21-32); CHLORIDE 99 mmol/L (98-107); COR CA(FOR HYPOALB) 9.5 mg/dL (8.5-10.1); COR NA(FOR HYPERGLY) 140 mmol/L (136-145); CREATININE 0.95 mg/dL (0.55-1.02); MAGNESIUM 1.5 mg/dL (1.7-2.9); SODIUM 137 mmol/L (136-145); TOTAL PROTEIN 7.3 g/dL (6.4-8.2); eGFR BLACK RACES > 60 (>60); eGFR NON BLACK RACES > 60 (>60)
[2017-12-19 05:57] LABS: BASOPHILS # (AUTO) 0.1 X10^3/uL (0.0-0.1); BASOPHILS % (AUTO) 1.1 % (0.2-1.0); EOSINOPHILS # (AUTO) 0.2 x10^3/uL (0.0-0.2); HEMATOCRIT 35.6 % (36.0-47.0); HEMOGLOBIN 12.1 g/dL (12.0-16.0); LYMPHOCYTES # (AUTO) 3.2 X10^3/uL (1.3-2.9); LYMPHOCYTES % (AUTO) 52.1 % (21.0-51.0); MEAN CORPUSCULAR HEMOGLOBIN 27.5 pg (27.0-34.0); MEAN CORPUSCULAR HGB CONC 33.9 g/dL (33.0-35.0); MEAN CORPUSCULAR VOLUME 81.1 fL (80.0-100.0); MEAN PLATELET VOLUME 9.1 fL (7.4-11.0); MONOCYTES # (AUTO) 0.5 x10^3/uL (0.3-0.8); MONOCYTES % (AUTO) 7.5 % (0.0-13.0); NEUTROPHILS # (AUTO) 2.2 x10^3/uL (2.2-4.8); NEUTROPHILS % (AUTO) 35.3 % (42.0-75.0); PLATELET COUNT 286 X10^3/uL (150.0-450.0); RED BLOOD COUNT 4.39 X10^6/uL (3.5-5.4); RED CELL DISTRIBUTION WIDTH 13.9 % (11.6-16.5); WHITE BLOOD COUNT 6.1 X10^3/uL (3.6-10.0)
[2017-12-19] MEDS: ZITHROMAX INJ 500 MG VIAL 500 MG in NS 250 ML IV 250 ML IV SCH (08:54)
[2017-12-19] MEDS: CHLORTHALIDONE PO SCH (08:54)
[2017-12-19] MEDS: ROBITUSSIN DM PO SCH ×2 (08:54→13:18)
[2017-12-19] MEDS: ZANTAC PO SCH (08:55)
[2017-12-19] MEDS: ULTRAM PO PRN (08:57)
[2017-12-19] MEDS: COMBIGAN EYE DROPS EACHEYE SCH (08:59)
[2017-12-19] MEDS: PULMICORT NEB TX 0.5 MG NEB SCH (09:19)
[2017-12-19] MEDS: HumuLIN R SUBCUT PRN (12:20)
[2017-12-19 12:23] VITALS: BP 158/82
== END 2017-12-19 15:45 | disposition home or self-care (01) | DRG 203 ==
LOC: MED/SURG 12:33
PROVIDERS: ADMIT Internal Medicine; ATTEND Internal Medicine
DX: J20.9 Acute bronchitis, unspecified (principal); E11.65 Type 2 diabetes mellitus with hyperglycemia; I10 Essential (primary) hypertension; M15.8 Other polyosteoarthritis; R06.02 Shortness of breath; R53.83 Other fatigue; I51.7 Cardiomegaly; I25.10 Atherosclerotic heart disease of native coronary artery without angina pectoris; J44.9 Chronic obstructive pulmonary disease, unspecified; G47.33 Obstructive sleep apnea (adult) (pediatric); F41.8 Other specified anxiety disorders; E78.2 Mixed hyperlipidemia
CPT/HCPCS: 36415; 71045; 71046; 80053; 83735; 85025; 87040; 87070; 87205; 94640; 94760; A4222; J0456; J1200; J1815; J7608; J7620; J7626

== ENCOUNTER → 2018-01-09 | Outpatient (CLI) | payer OTHER, MEDICAID ==
[2017-12-19 12:23] VITALS: BP 158/82
== END ==
LOC: LAB 12:21
PROVIDERS: ATTEND Internal Medicine Gastroenterology
DX: K64.0 First degree hemorrhoids (principal)
CPT/HCPCS: 82274

== ENCOUNTER → 2018-02-12 | Outpatient (CLI) | payer OTHER, MEDICAID ==
[2018-02-12 16:01] LABS: TSH (3RD GENERATION) 1.256 uIU/mL (0.358-3.74)
== END ==
LOC: LAB 14:50
PROVIDERS: ATTEND Physician Assistant
DX: R53.83 Other fatigue (principal)
CPT/HCPCS: 36415; 82607; 84443

== ENCOUNTER 2020-01-18 15:38 | Observation (INO) ==
[2020-01-18] MEDS ORDERED: ULTRAM PO PRN (17:11)
--- NOTE | 2020-01-18 17:13 | DR.H&P ---
H&P - History & Physical for Day of: H&P Date: 01/18/20 - Chief Complaint Chief Complaint: abdominal pain, n/v, dehydration, elevated blood sugar - History of Present Illness History of Present Illness: PT IS 64 BF DIRECT ADMIT FROM DR FOFANA OFFICE WITH CO ER FOLLOW UP FOR INTRACTABLE ABDOMINAL PAIN AND N/V THAT STARTED ON 01/13. PT WAS SEEN IN ER ON 01/13, TREATED FOR HYPOKALEMIA AND GIVEN ZOFRAN FOR NAUSEA. PT STATES SHE HAS CONTINUED WITH WEAKNESS, ABDOMINAL PAIN AND BLOATING. PT CO SHE HAD "NOODLES" TO EAT THIS AM AND PAIN HAS BEEN INTRACTABLE SINCE. PT HAS PMH OF DM, HTN, OA. PT ADMITTED FOR TREATMENT OF ACUTE ILLNESS. - Past Medical History Past Medical History: Angina, Hypertension, Diabetes, Arthritis - Past Surgical History Surgical History: Hysterectomy, Other - Family History Family Medical History: Cancer, Hypertension - Social History Does patient currently use any type of tobacco product: Yes Have you used tobacco products in the last 12 months: Yes Type of Tobacco Use: Smokeless Does any household member use tobacco: No Alcohol Use: None Drug Use: None Risks, benefits, and alternatives of opioids discussed: No Prescription drug monitoring program results: PDMP reviewed and no concerns identified - Medications Home Medications: GISEL Inhibitors Allergy (Verified 11/24/17 09:42) codeine Allergy (Verified 11/24/17 09:42) hydrocodone Allergy (Verified 11/24/17 09:42) insulin detemir [From Levemir] Allergy (Verified 11/24/17 09:42) Iodinated Contrast Media Allergy (Verified 01/14/20 13:40) iodine Allergy (Verified 11/24/17 09:42) ketorolac [From Toradol] Allergy (Verified 11/24/17 09:42) olmesartan [From Benicar] Allergy (Verified 11/24/17 09:42) insulin glargine [From Lantus] Adverse Reaction (Verified 11/24/17 09:42) BETA-BLOCKERS Allergy (Uncoded 11/24/19 14:52) CONTINUE taking the following medications brimonidine-timolol [Combigan] drp OPHTHALMIC (EYE) 01/18/20 [History] famotidine 40 mg PO DAILY 01/18/20 [History] polyethylene glycol 3350 17 g PO DAILY 01/18/20 [History] - Review of Systems Constitutional: Weakness Eyes: No Symptoms Reported ENT: No Symptoms Reported Respiratory: SOB with Excertion Gastrointestinal: Nausea, Vomiting, Abdominal Pain Genitourinary: No Symptoms Reported Musculoskeletal: Shoulder Pain, Back Pain, Neck Pain Skin: No Symptoms Reported Neurological: No Symptoms Reported - Physical Exam Vital Signs: Temperature 99.1 F Pulse Rate [Right Brachial] 62 Respiratory Rate 20 Blood Pressure [Left Arm] 206/89 Blood Pressure [Right Arm] 183/93 Blood Pressure 195/88 O2 Sat by Pulse Oximetry 97 Oriented: Normal Eyes: Normal Ear: Normal Nose: Normal Throat: Normal Respiratory: RLL Diminished, LLL Diminished Cardiovascular: Normal : Normal Auscultation: Bowel Sounds: Increased Tenderness: Diffuse, RUQ, LUQ, Epigastric, Moderate Skin: Decreased Turgur Musculoskeletal: Back:Lumbar Psychiatric: Anxiety Affect: Anxious Speech Pattern: Clear, Appropriate - Assessment/Plan (1) Acute gastroenteritis Status: Acute Plan: ADMIT, NPO. IV HYDRATION, PAIN CONTROL, ADMISSION LABS, CBC CMP UA MAG AMYLASE AND LIPASE. STOOL STUDIES. GI CONSULT, CT ABD PELVIS WITH PO CONTRAST ONLY DUE TO IODINE ALLERGY, REPEAT AM LABS, PPI THERAPY, SSI (2) Hypertension Qualifiers: Hypertension type: essential hypertension Qualified Code(s): I10 - [facility] Status: Acute (3) Diabetes Status: Acute (4) Uncontrolled diabetes mellitus Qualifiers: Diabetes mellitus type: type 2 Glycemic state: with hyperglycemia Qualified Code(s): E11.65 - Type 2 diabetes mellitus with hyperglycemia Status: Acute (5) Hypokalemia Status: Acute - Allergies Allergies/Adverse Reactions: Allergies Allergy/AdvReac Type Severity Reaction Status Date / Time GISEL Inhibitors Allergy Verified 11/24/17 09:42 codeine Allergy Verified 11/24/17 09:42 hydrocodone Allergy Verified 11/24/17 09:42 insulin detemir Allergy Verified 11/24/17 09:42 [From Levemir] Iodinated Contrast Media Allergy Verified 01/14/20 13:40 iodine Allergy Verified 11/24/17 09:42 ketorolac [From Toradol] Allergy Verified 11/24/17 09:42 olmesartan [From Benicar] Allergy Verified 11/24/17 09:42 insulin glargine AdvReac Verified 11/24/17 09:42 [From Lantus] BETA-BLOCKERS Allergy Uncoded 11/24/19 14:52
[2020-01-18 18:08] LABS: BLOOD UREA NITROGEN 9 mg/dL (7-18); CALCIUM 9.9 mg/dL (8.5-10.1); CARBON DIOXIDE 32.1 mmol/L (21-32); CHLORIDE 97 mmol/L (98-107); COR NA(FOR HYPERGLY) 139 mmol/L (136-145); SODIUM 137 mmol/L (136-145); eGFR NON BLACK RACES 60 (>60)
[2020-01-18 18:12] LABS: ALANINE AMINOTRANSFERASE 17 Units/L (12-78); ALBUMIN 3.4 g/dL (3.4-5.0); ALKALINE PHOSPHATASE 120 Units/L (46-116); AMYLASE 26 Units/L (25-115); ASPARTATE AMINO TRANSFERASE 22 Units/L (15-37); LIPASE 55 Units/L (73-393); MAGNESIUM 1.6 mg/dL (1.7-2.9); TOTAL PROTEIN 8.4 g/dL (6.4-8.2)
[2020-01-18] MEDS ORDERED: K-RIDER 10 MEQ/NS 100 ML 10 MEQ/100 ML BAG IV PRN (18:14)
[2020-01-18] MEDS ORDERED: K-DUR TAB 20 MEQ PO PRN (18:14)
[2020-01-18] MEDS ORDERED: POTASSIUM CHL 60 MEQ/NS 0.45% 500 ML IV PRN (18:14)
[2020-01-18] MEDS ORDERED: POTASSIUM CHL 40 MEQ/NS 0.45% 500 ML IV PRN (18:14)
[2020-01-18] MEDS ORDERED: MICRO K EXTEN CAP 10 MEQ PO PRN (18:14)
[2020-01-18] MEDS ORDERED: POTASSIUM CHLORIDE LIQ 20 MEQ UDC PO PRN (18:14)
[2020-01-18] MEDS ORDERED: KLOR-CON PO PRN (18:14)
[2020-01-18 18:15] LABS: BASOPHILS # (AUTO) 0.1 X10^3/uL (0.0-0.1); BASOPHILS % (AUTO) 1.1 % (0.2-1.0); EOSINOPHILS # (AUTO) 0.1 x10^3/uL (0.0-0.2); EOSINOPHILS % (AUTO) 1.3 % (0.9-2.9); HEMATOCRIT 39.9 % (36.0-47.0); HEMOGLOBIN 13.2 g/dL (12.0-16.0); LYMPHOCYTES # (AUTO) 2.6 X10^3/uL (1.3-2.9); LYMPHOCYTES % (AUTO) 42.7 % (21.0-51.0); MEAN CORPUSCULAR HEMOGLOBIN 27.3 pg (27.0-34.0); MEAN CORPUSCULAR HGB CONC 33.2 g/dL (33.0-35.0); MEAN CORPUSCULAR VOLUME 82.3 fL (80.0-100.0); MEAN PLATELET VOLUME 8.6 fL (7.4-11.0); MONOCYTES # (AUTO) 0.4 x10^3/uL (0.3-0.8); MONOCYTES % (AUTO) 7.3 % (0.0-13.0); NEUTROPHILS # (AUTO) 2.9 x10^3/uL (2.2-4.8); NEUTROPHILS % (AUTO) 47.6 % (42.0-75.0); PLATELET COUNT 285 X10^3/uL (150.0-450.0); RED BLOOD COUNT 4.85 X10^6/uL (3.5-5.4); RED CELL DISTRIBUTION WIDTH 14.2 % (11.6-16.5); WHITE BLOOD COUNT 6.1 X10^3/uL (3.6-10.0)
[2020-01-18 20:30] LABS: BILIRUBIN,URINE NEGATIVE (NEGATIVE); BLOOD/HEMOGLOBIN,URINE 2+ (NEGATIVE); GLUCOSE, URINE 2+ (NEGATIVE); KETONES,URINE NEGATIVE (NEGATIVE); LEUKOCYTE ESTERASE ,URINE NEGATIVE (NEGATIVE); NITRITES,URINE NEGATIVE (NEGATIVE); PROTEIN,URINE 3+ (NEGATIVE); UROBILINOGEN,URINE NORMAL (NORMAL)
[2020-01-18 20:38] LABS: APPEARANCE,URINE CLEAR (CLEAR); BACTERIA,URINE TRACE /HPF (NEGATIVE); COLOR,URINE YELLOW (YELLOW); RBC,URINE 0-2 /HPF (0-3); SQUAMOUS EPITHELIAL CELL,UR RARE /HPF (NEGATIVE)
[2020-01-18] MEDS: SNACK - Diabetic Appropriate PO SCH (21:31)
[2020-01-19] MEDS ORDERED: APRESOLINE TAB 10 MG PO ONE (01:10)
[2020-01-19] MEDS ORDERED: APRESOLINE TAB 25 MG ONE (01:12)
[2020-01-19] MEDS ORDERED: APRESOLINE TAB 25 MG PO ONE (01:13)
[2020-01-19] MEDS: NS 1000 ML 1,000 ML IV SCH ×3 (02:44→10:19)
[2020-01-19] MEDS: PROTONIX INJ 40 MG VIAL IVP SCH ×3 (02:44→22:02)
[2020-01-19 06:36] LABS: BASOPHILS % (AUTO) 0.8 % (0.2-1.0); EOSINOPHILS # (AUTO) 0.1 x10^3/uL (0.0-0.2); EOSINOPHILS % (AUTO) 1.7 % (0.9-2.9); HEMATOCRIT 36.2 % (36.0-47.0); HEMOGLOBIN 12.1 g/dL (12.0-16.0); LYMPHOCYTES # (AUTO) 2.6 X10^3/uL (1.3-2.9); LYMPHOCYTES % (AUTO) 44.6 % (21.0-51.0); MEAN CORPUSCULAR HEMOGLOBIN 27.3 pg (27.0-34.0); MEAN CORPUSCULAR HGB CONC 33.4 g/dL (33.0-35.0); MEAN CORPUSCULAR VOLUME 81.8 fL (80.0-100.0); MEAN PLATELET VOLUME 8.5 fL (7.4-11.0); MONOCYTES # (AUTO) 0.5 x10^3/uL (0.3-0.8); MONOCYTES % (AUTO) 9.4 % (0.0-13.0); NEUTROPHILS # (AUTO) 2.5 x10^3/uL (2.2-4.8); NEUTROPHILS % (AUTO) 43.5 % (42.0-75.0); PLATELET COUNT 259 X10^3/uL (150.0-450.0); RED BLOOD COUNT 4.43 X10^6/uL (3.5-5.4); RED CELL DISTRIBUTION WIDTH 14.4 % (11.6-16.5); WHITE BLOOD COUNT 5.8 X10^3/uL (3.6-10.0)
[2020-01-19] MEDS: APRESOLINE INJ 20 MG VIAL IVP PRN ×2 (06:39→16:40)
[2020-01-19 06:46] LABS: ALANINE AMINOTRANSFERASE 17 Units/L (12-78); ALBUMIN 2.8 g/dL (3.4-5.0); ALKALINE PHOSPHATASE 106 Units/L (46-116); ASPARTATE AMINO TRANSFERASE 24 Units/L (15-37); BLOOD UREA NITROGEN 8 mg/dL (7-18); CALCIUM 9.1 mg/dL (8.5-10.1); CHLORIDE 100 mmol/L (98-107); COR CA(FOR HYPOALB) 10.1 mg/dL (8.5-10.1); COR NA(FOR HYPERGLY) 140 mmol/L (136-145); CREATININE 0.87 mg/dL (0.55-1.02); MAGNESIUM 1.4 mg/dL (1.7-2.9); SODIUM 139 mmol/L (136-145); eGFR NON BLACK RACES > 60 (>60)
[2020-01-19] MEDS: MAGNESIUM SULFATE 1 GRAM/100 mL PREMIX 1 GM/100 ML BAG IV PRN ×3 (06:55→10:00)
[2020-01-19] MEDS ORDERED: APRESOLINE INJ 20 MG VIAL IVP ONE (09:00)
[2020-01-19] MEDS: NORVASC TAB 5 MG PO SCH (09:15)
[2020-01-19] MEDS: ZOFRAN INJ 4 MG VIAL IVP PRN (09:30)
[2020-01-19] MEDS ORDERED: APRESOLINE INJ 20 MG VIAL IVP NR (10:00)
[2020-01-19] MEDS: MORPHINE SULFATE INJ 2 MG INJ IVP PRN ×2 (10:30→18:10)
[2020-01-19 11:21] VITALS: BMI 36.7
[2020-01-19] MEDS: HumuLIN R SUBCUT PRN ×3 (12:44→22:03)
[2020-01-19] MEDS ORDERED: DIPRIVAN VIAL 10 ML ONE (13:27)
[2020-01-19] MEDS ORDERED: DIPRIVAN VIAL 20 ML ONE (13:33)
--- NOTE | 2020-01-19 13:34 | CT ---
[id number] [facility] 1138.40 25.40gastroenteritis nausea vomiting dehydration intractable abdominal painSTUDYABDOMEN/PELVIS W/O CONCOMPARISONCT abdomen and pelvis August 06, 2018TECHNIQUEMultiple axial images of the abdomen and pelvis were obtained from the lung bases to the pubic symphysis without the administration of IV or oral contrast. Dose reduction techniques including Automated Exposure Control (AEC) and adjustment of mA and kV were utilized.FINDINGSThe visualized portions of the lung bases are unremarkable . The liver, spleen, pancreas, kidneys, and adrenal glands are unremarkable in their CT appearance. Renal vascular arterial calcifications are noted bilaterally. The gallbladder is surgically absent. There are surgical clips in the gallbladder fossa.. No significant mesenteric lymphadenopathy or stranding can be observed. The aorta and IVC are normal there is no aneurysm or retroperitoneal adenopathy. No free fluid or free air is seen within the abdomen. No bowel wall thickening or bowel dilatation is present. The small fat containing umbilical hernia stable and unchanged from the 2018 prior exam. The colon is unremarkable. Specifically, there is no diverticulosis noted within the sigmoid colon. The urinary bladder is grossly unremarkable. The appendix is not identified. The bony structures are grossly intact. The uterus is also surgically absent. The inguinal femoral regions normal.IMPRESSIONNo acute abdominal or pelvic pathology.There are extensive vascular arterial calcifications in the renal arteries and SMA.The gallbladder surgically absent as well as the uterus.Electronically signed by: KATHY WHITE (Jan 19, 2020 13:33:26)
--- NOTE | 2020-01-19 14:44 | DR.CONSULT ---
Consult - Consultation for Day of: Date: 01/19/20 - Chief Complaint Chief Complaint: Patient referred for dysphagia and intractable nausea and vomiting. Patient with complaints of dysphagia, dyspepsia, nausea, vomiting and diffuse abdominal pain, constipation. - History of Present Illness History of Present Illness: Patient is a 64 yo female who was referred for dysphagia and intractable nausea and vomiting. Patient with complaints of dysp hagia, dyspepsia, nausea, vomiting and diffuse abdominal pain, constipation and hemaotchezia that she has not seen since Saturday. Patient denies diarrhea, melena. Last EGD was 11/07/2003 which showed healed gastric ulcer, antral gastritis, mild distal esohageal erythema. Last colon was 12/16/16 which showed internal hemorrhoids and tubular adenomatous colon polyp x1. Hgb 12.1, Hct 36.2, lt 259, BUN 8, Creatinine 0.87, T. Bili 0.4, AST 24, ALT 17, ALP 106. - Past Medical History Past Medical History: Angina, Hypertension, Diabetes, Arthritis - Past Surgical History Surgical History: Cholecystectomy, Other - Family History Family Medical History: Diabetes Mellitus, Cancer, [place] - Social History Does patient currently use any type of tobacco product: Yes Have you used tobacco products in the last 12 months: Yes Type of Tobacco Use: Smokeless How many years tobacco product used: 3 Does any household member use tobacco: No Alcohol Use: None Drug Use: None - Medications Home Medications: GISEL Inhibitors Allergy (Verified 11/24/17 09:42) codeine Allergy (Verified 11/24/17 09:42) hydrocodone Allergy (Verified 11/24/17 09:42) insulin detemir [From Levemir] Allergy (Verified 11/24/17 09:42) Iodinated Contrast Media Allergy (Verified 01/14/20 13:40) iodine Allergy (Verified 11/24/17 09:42) ketorolac [From Toradol] Allergy (Verified 11/24/17 09:42) olmesartan [From Benicar] Allergy (Verified 11/24/17 09:42) insulin glargine [From Lantus] Adverse Reaction (Verified 11/24/17 09:42) BETA-BLOCKERS Allergy (Uncoded 11/24/19 14:52) CONTINUE taking the following medications brimonidine-timolol [Combigan] 1 drp OPHTHALMIC (EYE) DAILY 01/18/20 [History] famotidine 40 mg PO DAILY 01/18/20 [History] polyethylene glycol 3350 17 g PO DAILY 01/18/20 [History] - Review of Systems Gastrointestinal: Nausea, Vomiting, Abdominal Pain, Constipation, Hematochezia. denies: No Symptoms Reported, See HPI, Diarrhea, Melena, Other - Physical Exam Vital Signs: Temperature 99.3 F Pulse Rate [Right Brachial] 77 Respiratory Rate 20 Blood Pressure [Left Arm] 120/68 Blood Pressure [Right Arm] 191/80 Blood Pressure 195/88 O2 Sat by Pulse Oximetry 100 Oriented: Normal Eyes: Normal Ear: Normal Nose: Normal Throat: Normal Respiratory: Clear Throughout Cardiovascular: Normal Auscultation: Bowel Sounds: Normal Palpation: Normal, Other (no distention). negative: Spleen Enlarged, Liver Enlarged, Mass Pulsatile Tenderness: Diffuse Skin: Normal Musculoskeletal: Normal Psychiatric: Normal Mood Description: Calm Affect: Normal Speech Pattern: Clear, Appropriate - Plan Plan: Assessment. 1. Nausea, Vomiting, Dysphagia r/o esophageal stricture, gastric ulcer. Plan. 1. EGD today. Plan reviewed with Dr. Nieto - Allergies Allergies/Adverse Reactions: Allergies Allergy/AdvReac Type Severity Reaction Status Date / Time GISEL Inhibitors Allergy Verified 11/24/17 09:42 codeine Allergy Verified 11/24/17 09:42 hydrocodone Allergy Verified 11/24/17 09:42 insulin detemir Allergy Verified 11/24/17 09:42 [From Levemir] Iodinated Contrast Media Allergy Verified 01/14/20 13:40 iodine Allergy Verified 11/24/17 09:42 ketorolac [From Toradol] Allergy Verified 11/24/17 09:42 olmesartan [From Benicar] Allergy Verified 11/24/17 09:42 insulin glargine AdvReac Verified 11/24/17 09:42 [From Lantus] BETA-BLOCKERS Allergy Uncoded 11/24/19 14:52
[2020-01-19] MEDS: APRESOLINE TAB 10 MG PO SCH (22:02)
[2020-01-19] MEDS: REGLAN TAB 5 MG PO SCH (22:02)
[2020-01-19] MEDS: SNACK - Diabetic Appropriate PO SCH (22:03)
[2020-01-20] MEDS: NS 1000 ML 1,000 ML IV SCH (01:13)
[2020-01-20] MEDS: REGLAN TAB 5 MG PO SCH ×2 (05:35→11:52)
[2020-01-20] MEDS: ZOFRAN INJ 4 MG VIAL IVP PRN (05:36)
[2020-01-20] MEDS: HumuLIN R SUBCUT PRN ×2 (06:02→11:53)
[2020-01-20] MEDS: NORVASC TAB 5 MG PO SCH (09:23)
[2020-01-20] MEDS: PROTONIX INJ 40 MG VIAL IVP SCH (09:23)
[2020-01-20] MEDS: APRESOLINE TAB 10 MG PO SCH (09:24)
[2020-01-20 12:27] VITALS: BP 144/66
== END 2020-01-20 15:55 | disposition home or self-care (01) ==
LOC: MED/SURG
PROVIDERS: ADMIT Internal Medicine; ATTEND Internal Medicine
DX: K52.89 Other specified noninfective gastroenteritis and colitis; R10.13 Epigastric pain; K22.2 Esophageal obstruction; E87.6 Hypokalemia; R13.11 Dysphagia, oral phase; K29.00 Acute gastritis without bleeding; E86.0 Dehydration; K44.9 Diaphragmatic hernia without obstruction or gangrene; R11.2 Nausea with vomiting, unspecified

== ENCOUNTER 2021-05-01 06:54 | Observation (INO) ==
[2021-05-01] MEDS ORDERED: NORMODYNE INJ 100 MG VIAL IVP ONE (06:56)
[2021-05-01 07:02] VITALS: BMI 37.4
[2021-05-01] MEDS ORDERED: NORMODYNE INJ 20 MG VIAL ONE (07:11)
[2021-05-01] MEDS ORDERED: NITRO-BID OINT 2% UD (E.R. USE ONLY) ONE (07:11)
[2021-05-01] MEDS ORDERED: ASPIRIN 81 MG CHEWTAB ONE (07:11)
[2021-05-01 07:13] LABS: BASOPHILS # (AUTO) 0.5 X10^3/uL (0.0-0.1); BASOPHILS % (AUTO) 7.6 % (0.2-1.0); EOSINOPHILS # (AUTO) 0.2 x10^3/uL (0.0-0.2); EOSINOPHILS % (AUTO) 3.3 % (0.9-2.9); HEMATOCRIT 37.9 % (36.0-47.0); HEMOGLOBIN 12.5 g/dL (12.0-16.0); LYMPHOCYTES # (AUTO) 1.7 X10^3/uL (1.3-2.9); LYMPHOCYTES % (AUTO) 25.9 % (21.0-51.0); MEAN CORPUSCULAR VOLUME 78.9 fL (80.0-100.0); MEAN PLATELET VOLUME 8.8 fL (7.4-11.0); MONOCYTES # (AUTO) 0.3 x10^3/uL (0.3-0.8); MONOCYTES % (AUTO) 4.1 % (0.0-13.0); NEUTROPHILS # (AUTO) 3.8 x10^3/uL (2.2-4.8); NEUTROPHILS % (AUTO) 59.1 % (42.0-75.0); PLATELET COUNT 281 X10^3/uL (150.0-450.0); RED BLOOD COUNT 4.81 X10^6/uL (3.5-5.4); RED CELL DISTRIBUTION WIDTH 15.3 % (11.6-16.5); WHITE BLOOD COUNT 6.4 X10^3/uL (3.6-10.0)
--- NOTE | 2021-05-01 07:15 | DR.SOBA ---
HPI Time Seen Time Seen by Provider: 05/01/21 06:56 Primary Care Physician Primary Care Physician: QUINN Complaints Chief Complaint:: "I'M VERY SHORT AND BREATH AND MY BLOOD PRESSURE IS HIGH. IT GOT WORSE YESTERDAY AT [employer]SH[employer]. I HAVEN'T BEEN AROUND ANYONE WITH COVID THAT I KNOW OF." Self Treatment fo Chief Complaint: BREATHING TREATMENTS AT HOME Reviewed Nurses Notes Reviewed: Yes Source History Provided: Patient Mode of Arrival Mode of Arrival: EMS Timing Onset of Chief Complaint: 04/28/21 PMH PMH Past Medical History: Yes Past Medical History: Angina, Arthritis, Diabetes and Hypertension Past Surgical History: Yes Surgical History: Cholecystectomy and Other Family History History of Family Medical Conditions: Yes Family Medical History: Diabetes Mellitus, Cancer and PA Social History Does patient currently use any type of tobacco product: No Have you used tobacco products in the last 12 months: No Type of Tobacco Use: None Alcohol Use: None Do you use any recreational Drugs:: No Lives With: Family Lives Where: Home Infectious screening In the last 2 months have you had wt loss of >10#?: NO Have you had fever, night sweats or hemotysis?: No Have you traveled outside the country in the last 6 months?: No Isolation: Droplet ROS Review of Systems Constitutional: No Symptoms Reported Eyes: No Symptoms Reported ENTM: No Symptoms Reported Respiratoy: See HPI and Short of Breath Cardiovascular: Chest Pain Gastrointestinal/Abdominal: No Symptoms Reported Genitourinary: No Symptoms Reported Neurological: No Symptoms Reported Musculoskeletal: No Symptoms Reported Integumentary: No Symptoms Reported Hematologic/Lymphatic: No Symptoms Reported Endocrine: No Symptoms Reported Psychiatric: No Symptoms Reported All Other Systems: Reviewed and Negative PE Vital Signs Vitals: Temperature 98.9 F Pulse Rate [Apical] 57 Pulse Rate 68 Respiratory Rate 31 Blood Pressure [Left Arm] 174/78 Blood Pressure 196/87 O2 Sat by Pulse Oximetry 98 General Limitations: No Limitations General Appearance: Alert and Anxious Head Head Exam: Normal Inspection Eyes Eye exam: Normal Appearance ENT ENT Exam: Normal Exam Neck Neck Exam: Normal Inspection Chest Chest Inspection: Normal Inspection Respiratory Respiratory Exam: Normal Lung Sounds Bilat Respiratory Exam: Bilateral: Rales and Lower: Rales Cardiovascular Cardiovascular Exam: Tachycardia and Irregular Rhythm Abdominal Exam Abdominal Exam: Normal Inspection, Normal Bowel Sounds and Soft Extremities Extremities Exam: Normal Inspection Back Back Exam: Normal Inspection Neurologic Neurological Exam: Alert and Oriented X3 Psychiatric Psychiatric Exam: Normal Affect and Normal Mood Skin Skin Exam: Warm, Dry, Intact and Normal Color MDM Differential Diagnosis Differential Diagnosis: Anxiety, Asthma, Bronchitis, Cardiogenic shock, CHF, COPD, Dysrhythmia, Hypertensive Emergency, Hyperventilation, Hyponatremia, Mycardial Infarction, Panic Attack, Pneumonia, Pneumothorax, PSVT, Pulmonary embolism, Respiratory Failure, Respiratory Insufficiency, Sinusitis, URI and Other COURSE Treatment Treatment: dyspnea, ? CHF, HTN urgency vs emergency will give labetalol , ASA, and nitro, cardiac work-up, cxr appears CHF, will test COVID Reevaluation 1st: Improved (BP improving, HR improving, pt feeling better, presentation c/w CHF, will sign out to Dr Lomax or attempt to admit to [facility], no fever, or elevated WBC, does not appear to be pneumonia) 2nd: Improved (labs OK, BP improving, will admit) 3rd: Improved (spoke with Quinn, will admit) Critical Care Notes Total Time (mins): 35 Critical Diagnosis: CHF with pulmonary edema and HTN emergency Critical Interventions: see orders ROR Labs Reviewed Laboratory Results Reviewed?: Yes Result Diagrams: 05/01/21 07:00 05/01/21 07:00 Laboratory: WBC 6.4 X10^3/uL (3.6-10.0) 05/01/21 07:00 RBC 4.81 X10^6/uL (3.5-5.4) 05/01/21 07:00 Hgb 12.5 g/dL (12.0-16.0) 05/01/21 07:00 Hct 37.9 % (36.0-47.0) 05/01/21 07:00 MCV 78.9 fL (80.0-100.0) L 05/01/21 07:00 MCH 26.0 pg (27.0-34.0) L 05/01/21 07:00 MCHC 33.0 g/dL (33.0-35.0) 05/01/21 07:00 RDW 15.3 % (11.6-16.5) 05/01/21 07:00 Plt Count 281 X10^3/uL (150.0-450.0) 05/01/21 07:00 Plt Count Comment Adequate (ADEQUATE) 05/01/21 07:00 MPV 8.8 fL (7.4-11.0) 05/01/21 07:00 Neut % (Auto) 59.1 % (42.0-75.0) 05/01/21 07:00 Lymph % (Auto) 25.9 % (21.0-51.0) 05/01/21 07:00 [place] % (Auto) 4.1 % (0.0-13.0) 05/01/21 07:00 Eos % (Auto) 3.3 % (0.9-2.9) H 05/01/21 07:00 Baso % (Auto) 7.6 % (0.2-1.0) H 05/01/21 07:00 Neut # (Auto) 3.8 x10^3/uL (2.2-4.8) 05/01/21 07:00 Lymph # (Auto) 1.7 X10^3/uL (1.3-2.9) 05/01/21 07:00 [place] # (Auto) 0.3 x10^3/uL (0.3-0.8) 05/01/21 07:00 Eos # (Auto) 0.2 x10^3/uL (0.0-0.2) 05/01/21 07:00 Baso # (Auto) 0.5 X10^3/uL (0.0-0.1) H 05/01/21 07:00 Absolute Nucleated RBC 0.2 /100WBC 05/01/21 07:00 Total Counted 100 05/01/21 07:00 Neutrophils % (Manual) 67 % (39-76) 05/01/21 07:00 Lymphocytes % (Manual) 25 % (13-43) 05/01/21 07:00 Monocytes % (Manual) 1 % (4-9) L 05/01/21 07:00 Eosinophils % (Manual) 4 % (0-6) 05/01/21 07:00 Basophils % (Manual) 3 % (0-1) H 05/01/21 07:00 Plt Morphology Comment Normal (NORMAL) 05/01/21 07:00 RBC Morphology Normal (NORMAL) 05/01/21 07:00 Sodium 141 mmol/L (136-145) 05/01/21 07:00 Corrected Sodium 145 mmol/L (136-145) 05/01/21 07:00 Potassium 4.0 mmol/L (3.5-5.1) 05/01/21 07:00 Chloride 103 mmol/L (98-107) 05/01/21 07:00 Carbon Dioxide 28.2 mmol/L (21-32) 05/01/21 07:00 BUN 15 mg/dL (7-18) 05/01/21 07:00 Creatinine 0.84 mg/dL (0.55-1.02) 05/01/21 07:00 Est GFR (MDRD) Af Amer > 60 (>60) 05/01/21 07:00 Est GFR (MDRD) Non-Af > 60 (>60) 05/01/21 07:00 Glucose 273 mg/dL (65-99) H 05/01/21 07:00 Calcium 9.1 mg/dL (8.5-10.1) 05/01/21 07:00 Corrected Calcium TNP 05/01/21 07:00 Magnesium 1.9 mg/dL (1.7-2.9) 05/01/21 07:00 Troponin I < 0.02 ng/mL (0-1.5) 05/01/21 07:00 B-Natriuretic Peptide 270 pg/mL (0-79) H 05/01/21 07:00 Albumin 3.5 g/dL (3.4-5.0) 05/01/21 07:00 SARS CoV-2 RNA Rapid WILLIAM Negative (NEGATIVE) 05/01/21 07:18 Other Results Comments: cardiac ok, will admit XRAY XRAY Interpreted by: Radiologist X-ray Results: IMPRESSION Bilateral airspace and interstitial opacities may represent pulmonary edema or pneumonia. Suspect small pleural effusions. EKG Rate: 66 Rhythm: NSR (PACs) Hypertrophy: LVH ST: Nonsp Opioid Opioid Risk Tool Age ([place] box if 16-45): No History of Preadolescent Sexual Abuse: No Total: 0 Total Score Risk Category: Low Risk Copyright: Israel MCBRIDE predicting aberrant behaviors Diagnosis Discharge Problem: Pulmonary edema cardiac cause, Hypertensive emergency CHF (congestive heart failure) Qualifiers: Heart failure type: systolic Heart failure chronicity: acute Qualified Code(s): I50.21 - Acute systolic (congestive) heart failure
[2021-05-01] MEDS: ASPIRIN 81 MG CHEWTAB PO SCH ×2 (07:17→10:01)
--- NOTE | 2021-05-01 07:18 | RAD ---
HISTORYPT C/O INCREASING SOB X3 DAYSSTUDYCHEST, 1 [id number]/10/2020.TECHNIQUEAP view of the chestFINDINGSCardiac silhouette is mildly enlarged. There are near diffuse bilateral hazy opacities with scattered interstitial opacities. Blunted costophrenic sulci. No pneumothorax.IMPRESSIONBilateral airspace and interstitial opacities may represent pulmonary edema or pneumonia. Suspect small pleural effusions.Electronically signed by: Luther Rachel (May 01, 2021 07:16:22)
[2021-05-01] MEDS: NITRO-BID OINT 2% Multi-Dose tube TD SCH ×2 (07:23→10:02)
[2021-05-01 07:36] LABS: ALBUMIN 3.5 g/dL (3.4-5.0); BLOOD UREA NITROGEN 15 mg/dL (7-18); CALCIUM 9.1 mg/dL (8.5-10.1); CARBON DIOXIDE 28.2 mmol/L (21-32); CHLORIDE 103 mmol/L (98-107); COR NA(FOR HYPERGLY) 145 mmol/L (136-145); CREATININE 0.84 mg/dL (0.55-1.02); MAGNESIUM 1.9 mg/dL (1.7-2.9); SODIUM 141 mmol/L (136-145); TROPONIN I < 0.02 ng/mL (0-1.5); eGFR NON BLACK RACES > 60 (>60)
[2021-05-01 07:43] LABS: BASOPHILS % (MANUAL) 3 % (0-1); PLATELET MORPHOLOGY COMMENT NORMAL (NORMAL)
[2021-05-01] MEDS ORDERED: LASIX IVP ONE (08:08)
[2021-05-01] MEDS: LASIX IVP SCH ×2 (08:12→16:38)
[2021-05-01 08:51] LABS: ALANINE AMINOTRANSFERASE 36 Units/L (12-78); ALKALINE PHOSPHATASE 167 Units/L (46-116); ASPARTATE AMINO TRANSFERASE 33 Units/L (15-37); CKMB % 0.9 % (<4); CREATINE KINASE 207 Units/L (26-192); CREATINE KINASE MB 1.8 ng/mL (0-4.0); TOTAL PROTEIN 6.7 g/dL (6.4-8.2)
[2021-05-01] MEDS: NORVASC TAB 10 MG PO SCH ×2 (10:54→11:05)
[2021-05-01] MEDS: CHLORTHALIDONE PO SCH (11:05)
[2021-05-01] MEDS: COMBIGAN EYE DROPS OP SCH ×2 (11:05→21:15)
[2021-05-01] MEDS: XOPENEX 1.25 MG/3 ML NEBULE NEB SCH ×2 (13:50→16:54)
[2021-05-01] MEDS ORDERED: APRESOLINE INJ 20 MG VIAL IVP ONE (15:49)
[2021-05-01] MEDS: HumuLIN R SUBCUT PRN ×2 (16:30→21:20)
[2021-05-01] MEDS ORDERED: HumuLIN 70/30 (NovoLIN 70/30) SC SCH ×3 (17:00→21:00)
--- NOTE | 2021-05-01 18:18 | DR.H&P ---
H&P - History & Physical for Day of: H&P Date: 05/01/21 - Chief Complaint Chief Complaint: HIGH BP, SOB - History of Present Illness History of Present Illness: PT IS 65 BF ER ADMISSION WITH CO SUDDEN ONSET OF ELEVATED BP AND SOB. PT STATES SHE HAS PMH OF DM AND HTN. PT SEEN FEE CLERK WITH LAST ECHO LESS THAN 6MOS. PT TOOK BP MEDICATION AT HOME. PT ADMITTED FOR TREATMENT OF ACUTE HYPERTENSIVE URGENCY. - Past Medical History Past Medical History: Angina, Hypertension, Diabetes, Arthritis - Past Surgical History Surgical History: Cholecystectomy, Other - Family History Family Medical History: Diabetes Mellitus, Cancer, PA - Social History Does patient currently use any type of tobacco product: No Have you used tobacco products in the last 12 months: No Type of Tobacco Use: None Alcohol Use: None Drug Use: None - Medications Home Medications: GISEL Inhibitors Allergy (Verified 11/24/17 09:42) clonidine Allergy (Verified 05/01/21 06:56) codeine Allergy (Verified 11/24/17 09:42) hydrocodone Allergy (Verified 11/24/17 09:42) insulin detemir [From Levemir] Allergy (Verified 11/24/17 09:42) Iodinated Contrast Media Allergy (Verified 01/14/20 13:40) iodine Allergy (Verified 11/24/17 09:42) ketorolac [From Toradol] Allergy (Verified 11/24/17 09:42) olmesartan [From Benicar] Allergy (Verified 11/24/17 09:42) insulin glargine [From Lantus] Adverse Reaction (Verified 11/24/17 09:42) BETA-BLOCKERS Allergy (Uncoded 11/24/19 14:52) CONTINUE taking the following medications amlodipine [Norvasc] 10 mg PO DAILY 05/01/21 [History] brimonidine-timolol [Combigan] 1 drp OPHTHALMIC (EYE) BID 05/01/21 [History] chlorthalidone 25 mg PO DAILY 05/01/21 [History] esomeprazole magnesium [Nexium] 40 mg PO DAILY 05/01/21 [History] fluticasone propionate 1 spray INTRANASAL BID 05/01/21 [History] insulin NPH and regular human [Humulin 70/30 U-100 Insulin] 75 unit SUBCUT BID 05/01/21 [History] nitroglycerin 0.4 mg SUBLINGUAL Q5M PRN 05/01/21 [History] polyethylene glycol 3350 [Miralax] 17 g PO BID 05/01/21 [History] ranitidine HCl 150 mg PO BID 05/01/21 [History] tramadol 100 mg PO TID PRN 05/01/21 [History] - Review of Systems Constitutional: Malaise Eyes: No Symptoms Reported ENT: No Symptoms Reported Respiratory: Shortness of Breath Cardiovascular: Palpitations Gastrointestinal: Nausea Genitourinary: No Symptoms Reported Musculoskeletal: Back Pain Skin: No Symptoms Reported Neurological: Weakness - Physical Exam Vital Signs: Temperature 98.6 F Pulse Rate [Apical] 56 Pulse Rate 67 Respiratory Rate 18 Blood Pressure [Left Arm] 143/87 Blood Pressure 219/90 O2 Sat by Pulse Oximetry 96 Oriented: Normal Eyes: Normal Ear: Normal Nose: Normal Throat: Normal Respiratory: RLL Diminished, LLL Diminished Cardiovascular: Normal. negative: Edema : Normal Auscultation: Bowel Sounds: Normal Palpation: Normal Tenderness: Normal Skin: Decreased Turgur Musculoskeletal: Back:Lumbar Psychiatric: Anxiety Affect: Anxious Speech Pattern: Clear, Appropriate - Assessment/Plan (1) Hypertensive emergency Status: Acute Plan: ADMIT, EKG ON ADMISSION. CXR, BP CONTROL, CARIDAC MONITORING AND CE. BS CONTROL, SSI COVERAGE. VERIFY HOME MEDICATION, STRICT I&OS. OBTAIN LAST ECHO REPORT, UA, REPEAT AM LABS (2) Pulmonary edema cardiac cause Status: Acute (3) Chronic GERD Status: Acute (4) Diabetes Status: Acute (5) Uncontrolled diabetes mellitus Status: Acute - Allergies Allergies/Adverse Reactions: Allergies Allergy/AdvReac Type Severity Reaction Status Date / Time GISEL Inhibitors Allergy Verified 11/24/17 09:42 clonidine Allergy Verified 05/01/21 06:56 codeine Allergy Verified 11/24/17 09:42 hydrocodone Allergy Verified 11/24/17 09:42 insulin detemir Allergy Verified 11/24/17 09:42 [From Levemir] Iodinated Contrast Media Allergy Verified 01/14/20 13:40 iodine Allergy Verified 11/24/17 09:42 ketorolac [From Toradol] Allergy Verified 11/24/17 09:42 olmesartan [From Benicar] Allergy Verified 11/24/17 09:42 insulin glargine AdvReac Verified 02/25/18 09:42 [From Lantus] BETA-BLOCKERS Allergy Uncoded 11/24/19 14:52
[2021-05-01] MEDS ORDERED: PULMICORT NEB TX 0.5 MG NEB ONE (19:30)
[2021-05-01] MEDS: PULMICORT NEB TX 0.5 MG NEB SCH (20:10)
[2021-05-01] MEDS: SNACK - Diabetic Appropriate PO SCH (20:20)
[2021-05-01] MEDS: ULTRAM PO PRN (21:00)
[2021-05-01] MEDS: PEPCID TAB 40 MG PO SCH (21:15)
[2021-05-01] MEDS: HumuLIN 70/30 (NovoLIN 70/30) SC SCH (21:20)
[2021-05-01 22:22] LABS: BILIRUBIN,URINE NEGATIVE (NEGATIVE); BLOOD/HEMOGLOBIN,URINE 2+ (NEGATIVE); GLUCOSE, URINE 2+ (NEGATIVE); KETONES,URINE NEGATIVE (NEGATIVE); LEUKOCYTE ESTERASE ,URINE NEGATIVE (NEGATIVE); NITRITES,URINE NEGATIVE (NEGATIVE); PROTEIN,URINE 3+ (NEGATIVE); UROBILINOGEN,URINE NORMAL (NORMAL)
[2021-05-01 22:29] LABS: APPEARANCE,URINE CLEAR (CLEAR); BACTERIA,URINE NEGATIVE /HPF (NEGATIVE); COLOR,URINE PALE YELLOW (YELLOW); RBC,URINE 0-2 /HPF (0-3); SQUAMOUS EPITHELIAL CELL,UR RARE /HPF (NEGATIVE)
[2021-05-02] MEDS: XOPENEX 1.25 MG/3 ML NEBULE NEB SCH ×4 (05:18→17:35)
[2021-05-02 06:16] LABS: BASOPHILS # (AUTO) 0.1 X10^3/uL (0.0-0.1); BASOPHILS % (AUTO) 1.5 % (0.2-1.0); EOSINOPHILS # (AUTO) 0.2 x10^3/uL (0.0-0.2); EOSINOPHILS % (AUTO) 2.8 % (0.9-2.9); HEMATOCRIT 34.9 % (36.0-47.0); HEMOGLOBIN 11.6 g/dL (12.0-16.0); LYMPHOCYTES # (AUTO) 2.5 X10^3/uL (1.3-2.9); LYMPHOCYTES % (AUTO) 42.5 % (21.0-51.0); MEAN CORPUSCULAR HEMOGLOBIN 26.1 pg (27.0-34.0); MEAN CORPUSCULAR HGB CONC 33.3 g/dL (33.0-35.0); MEAN CORPUSCULAR VOLUME 78.3 fL (80.0-100.0); MONOCYTES # (AUTO) 0.5 x10^3/uL (0.3-0.8); MONOCYTES % (AUTO) 8.2 % (0.0-13.0); NEUTROPHILS # (AUTO) 2.6 x10^3/uL (2.2-4.8); PLATELET COUNT 260 X10^3/uL (150.0-450.0); RED BLOOD COUNT 4.46 X10^6/uL (3.5-5.4); RED CELL DISTRIBUTION WIDTH 14.7 % (11.6-16.5); WHITE BLOOD COUNT 5.8 X10^3/uL (3.6-10.0)
--- NOTE | 2021-05-02 06:24 | RAD ---
HISTORYCongestive heart failureSTUDYChest AP [id number]/02/2021FINDINGSHeart is enlarged. Pulmonary venous congestion is present. No def inite interstitial or alveolar edema identified. Haziness in the right lung base is unchanged and may represent infiltrate. Left lung base is better aerated than on the prior examination. Bilateral smal l pleural effusions are likely present. Bony thorax is unremarkable.IMPRESSIONCardiomegaly with pulmo nary venous congestion but no definite edemaRight basilar lung infiltrateSuspect bilateral small pleu ral effusionsElectronically signed by: CINDY WHELAN (May 02, 2021 06:22:04)
[2021-05-02 06:46] LABS: ALANINE AMINOTRANSFERASE 26 Units/L (12-78); ALBUMIN 2.9 g/dL (3.4-5.0); ALKALINE PHOSPHATASE 146 Units/L (46-116); ASPARTATE AMINO TRANSFERASE 26 Units/L (15-37); BLOOD UREA NITROGEN 15 mg/dL (7-18); CHLORIDE 104 mmol/L (98-107); CHOLESTEROL 190 mg/dL (0-200); COR CA(FOR HYPOALB) 9.9 mg/dL (8.5-10.1); CREATININE 1.13 mg/dL (0.55-1.02); FREE T4 (FREE THYROXINE) 1.27 ng/dL (0.76-1.46); HDL CHOLESTEROL 63 mg/dL (40-60); SODIUM 144 mmol/L (136-145); TOTAL PROTEIN 6.9 g/dL (6.4-8.2); TRIGLYCERIDES 94 mg/dL (0-150); TSH (3RD GENERATION) 3.342 uIU/mL (0.358-3.74); eGFR NON BLACK RACES 52 (>60)
[2021-05-02] MEDS: HumuLIN 70/30 (NovoLIN 70/30) SC SCH ×2 (08:00→21:49)
[2021-05-02] MEDS: ASPIRIN 81 MG CHEWTAB PO SCH (09:00)
[2021-05-02] MEDS: PEPCID TAB 40 MG PO SCH ×2 (09:00→21:49)
[2021-05-02] MEDS ORDERED: K-RIDER 10 MEQ/NS 100 ML 10 MEQ/100 ML BAG IV PRN (09:06)
[2021-05-02] MEDS ORDERED: KLOR-CON PO PRN (09:06)
[2021-05-02] MEDS ORDERED: POTASSIUM CHL 40 MEQ/NS 0.45% 500 ML IV PRN (09:06)
[2021-05-02] MEDS ORDERED: POTASSIUM CHLORIDE LIQ 20 MEQ UDC PO PRN (09:06)
[2021-05-02] MEDS ORDERED: MAGNESIUM SULFATE 1 GRAM/100 mL PREMIX 1 GM/100 ML BAG IV PRN (09:06)
[2021-05-02] MEDS ORDERED: MICRO K EXTEN CAP 10 MEQ PO PRN (09:06)
[2021-05-02] MEDS ORDERED: POTASSIUM CHL 60 MEQ/NS 0.45% 500 ML IV PRN (09:06)
[2021-05-02] MEDS: ROCEPHIN VIAL 1 GRAM 1 G in NS 100 ML IV + SPIKE MINIBAG* 100 ML IV SCH ×2 (09:53→10:00)
[2021-05-02] MEDS: PULMICORT NEB TX 0.5 MG NEB SCH ×2 (09:55→20:52)
[2021-05-02] MEDS: COMBIGAN EYE DROPS OP SCH ×2 (10:00→21:49)
[2021-05-02] MEDS: CHLORTHALIDONE PO SCH (10:00)
[2021-05-02] MEDS: LASIX IVP SCH ×2 (10:00→20:00)
[2021-05-02] MEDS: K-DUR TAB 20 MEQ PO SCH ×2 (10:00→21:49)
[2021-05-02] MEDS: NORVASC TAB 10 MG PO SCH (10:00)
[2021-05-02] MEDS: PROTONIX INJ 40 MG VIAL IVP SCH (10:00)
[2021-05-02] MEDS ORDERED: NS 100 ML IV 100 ML ONE (10:31)
[2021-05-02] MEDS: APRESOLINE INJ 20 MG VIAL IVP PRN (12:44)
[2021-05-02] MEDS: K-DUR TAB 20 MEQ PO PRN ×2 (14:28→18:12)
[2021-05-02] MEDS: ULTRAM PO PRN (14:43)
[2021-05-02] MEDS: SNACK - Diabetic Appropriate PO SCH (20:00)
[2021-05-02] MEDS: HumuLIN R SUBCUT PRN (21:45)
[2021-05-03] MEDS: XOPENEX 1.25 MG/3 ML NEBULE NEB SCH ×4 (00:27→17:47)
[2021-05-03] MEDS ORDERED: D50W ABBOJECT SYR ONE (02:42)
[2021-05-03] MEDS ORDERED: D50W ABBOJECT SYR IV ONE (02:52)
--- NOTE | 2021-05-03 06:07 | RAD ---
HISTORYPNEUMONIA, CHFSTUDYCHEST, 1 [id number]/03/2021.TECHNIQUEAP view of the chestFINDINGSCardiac and mediastinal contours are within normal limits. Mild improvement in bilateral airspace and interstitial opacities. Suspect small pleural effusions. No pneumothorax.IMPRESSIONMild improvement in pulmonary opacities that may represent pulmonary edema or pneumonia. Suspect small pleural effusions.Electronically signed by: Luther Rachel (May 03, 2021 06:05:09)
[2021-05-03] MEDS: HumuLIN 70/30 (NovoLIN 70/30) SC SCH ×2 (06:15→20:11)
[2021-05-03 06:24] LABS: BASOPHILS # (AUTO) 0.1 X10^3/uL (0.0-0.1); BASOPHILS % (AUTO) 0.9 % (0.2-1.0); EOSINOPHILS # (AUTO) 0.2 x10^3/uL (0.0-0.2); EOSINOPHILS % (AUTO) 4.1 % (0.9-2.9); HEMATOCRIT 38.3 % (36.0-47.0); HEMOGLOBIN 12.8 g/dL (12.0-16.0); LYMPHOCYTES # (AUTO) 2.4 X10^3/uL (1.3-2.9); LYMPHOCYTES % (AUTO) 40.4 % (21.0-51.0); MEAN CORPUSCULAR HGB CONC 33.4 g/dL (33.0-35.0); MEAN CORPUSCULAR VOLUME 77.7 fL (80.0-100.0); MEAN PLATELET VOLUME 9.1 fL (7.4-11.0); MONOCYTES # (AUTO) 0.6 x10^3/uL (0.3-0.8); NEUTROPHILS # (AUTO) 2.7 x10^3/uL (2.2-4.8); NEUTROPHILS % (AUTO) 44.6 % (42.0-75.0); PLATELET COUNT 263 X10^3/uL (150.0-450.0); RED BLOOD COUNT 4.93 X10^6/uL (3.5-5.4); RED CELL DISTRIBUTION WIDTH 15.1 % (11.6-16.5); WHITE BLOOD COUNT 6.1 X10^3/uL (3.6-10.0)
[2021-05-03 06:38] LABS: ALBUMIN 3.2 g/dL (3.4-5.0); CALCIUM 9.4 mg/dL (8.5-10.1); CARBON DIOXIDE 32.2 mmol/L (21-32); CREATININE 1.4 mg/dL (0.55-1.02); TOTAL PROTEIN 7.7 g/dL (6.4-8.2)
[2021-05-03] MEDS ORDERED: LASIX IVP SCH (09:00)
[2021-05-03] MEDS: CHLORTHALIDONE PO SCH (09:02)
[2021-05-03] MEDS: K-DUR TAB 20 MEQ PO SCH ×2 (09:02→20:11)
[2021-05-03] MEDS: PROTONIX INJ 40 MG VIAL IVP SCH (09:02)
[2021-05-03] MEDS: PEPCID TAB 20 MG PO SCH (09:03)
[2021-05-03] MEDS: ROCEPHIN VIAL 1 GRAM 1 G in NS 100 ML IV + SPIKE MINIBAG* 100 ML IV SCH (09:03)
[2021-05-03] MEDS: COMBIGAN EYE DROPS OP SCH ×2 (09:04→20:10)
[2021-05-03] MEDS ORDERED: NS 50 ML IV 50 ML IV ONE (09:15)
[2021-05-03] MEDS: ASPIRIN 81 MG CHEWTAB PO SCH (09:17)
[2021-05-03] MEDS: PROCARDIA XL PO SCH ×2 (09:17→20:11)
[2021-05-03] MEDS: PULMICORT NEB TX 0.5 MG NEB SCH ×2 (09:35→21:15)
[2021-05-03] MEDS: HumuLIN R SUBCUT PRN ×2 (17:28→20:12)
[2021-05-03] MEDS: ULTRAM PO PRN ×2 (17:32→23:00)
[2021-05-03] MEDS: APRESOLINE INJ 20 MG VIAL IVP PRN (18:11)
[2021-05-03] MEDS: SNACK - Diabetic Appropriate PO SCH (20:10)
[2021-05-04] MEDS: APRESOLINE INJ 20 MG VIAL IVP PRN ×2 (00:02→14:23)
[2021-05-04] MEDS: XOPENEX 1.25 MG/3 ML NEBULE NEB SCH ×3 (00:30→12:15)
[2021-05-04] MEDS ORDERED: ZOFRAN INJ 4 MG VIAL IVP PRN (03:45)
[2021-05-04] MEDS ORDERED: MAALOX or MYLANTA PO PRN (03:48)
[2021-05-04] MEDS: PROCARDIA XL PO SCH (04:20)
--- NOTE | 2021-05-04 06:10 | RAD ---
HISTORYCHFSTUDYCHEST, 1 [id number]/04/2021.TECHNIQUEAP view of the chestFINDINGSCardiac and mediastinal contours are within normal limits. Continued mild improvement in basilar predominant hazy opacities. The left base is grossly clear. There is mild residual opacity in the right base. No definite pleural effusion or pneumothorax.IMPRESSIONContinued improvement in pulmonary opacities that may represent edema. The left lung is clear radiographically and there is mild residual opacity in the right base.Electronically signed by: Luther Rachel (May 04, 2021 06:08:15)
[2021-05-04 06:50] LABS: BASOPHILS % (AUTO) 0.8 % (0.2-1.0); EOSINOPHILS # (AUTO) 0.3 x10^3/uL (0.0-0.2); EOSINOPHILS % (AUTO) 5.4 % (0.9-2.9); HEMATOCRIT 36.9 % (36.0-47.0); HEMOGLOBIN 12.1 g/dL (12.0-16.0); LYMPHOCYTES # (AUTO) 2.7 X10^3/uL (1.3-2.9); LYMPHOCYTES % (AUTO) 43.4 % (21.0-51.0); MEAN CORPUSCULAR HEMOGLOBIN 25.7 pg (27.0-34.0); MEAN CORPUSCULAR HGB CONC 32.9 g/dL (33.0-35.0); MEAN PLATELET VOLUME 9.1 fL (7.4-11.0); MONOCYTES # (AUTO) 0.6 x10^3/uL (0.3-0.8); NEUTROPHILS # (AUTO) 2.6 x10^3/uL (2.2-4.8); NEUTROPHILS % (AUTO) 41.4 % (42.0-75.0); PLATELET COUNT 266 X10^3/uL (150.0-450.0); RED BLOOD COUNT 4.73 X10^6/uL (3.5-5.4); RED CELL DISTRIBUTION WIDTH 15.3 % (11.6-16.5); WHITE BLOOD COUNT 6.3 X10^3/uL (3.6-10.0)
[2021-05-04 07:14] LABS: ALANINE AMINOTRANSFERASE 19 Units/L (12-78); ALKALINE PHOSPHATASE 140 Units/L (46-116); ASPARTATE AMINO TRANSFERASE 22 Units/L (15-37); BLOOD UREA NITROGEN 16 mg/dL (7-18); CALCIUM 8.9 mg/dL (8.5-10.1); CHLORIDE 101 mmol/L (98-107); CKMB % 0.9 % (<4); COR CA(FOR HYPOALB) 9.7 mg/dL (8.5-10.1); COR NA(FOR HYPERGLY) 143 mmol/L (136-145); CREATINE KINASE 186 Units/L (26-192); CREATINE KINASE MB 1.6 ng/mL (0-4.0); CREATININE 1.35 mg/dL (0.55-1.02); SODIUM 141 mmol/L (136-145); TOTAL PROTEIN 7.3 g/dL (6.4-8.2); TROPONIN I < 0.02 ng/mL (0-1.5); eGFR NON BLACK RACES 42 (>60)
[2021-05-04] MEDS: HumuLIN 70/30 (NovoLIN 70/30) SC SCH (07:59)
[2021-05-04] MEDS ORDERED: MIRALAX POWDER (1 DOSE 17 G) PO SCH (09:00)
[2021-05-04] MEDS ORDERED: K-DUR TAB 20 MEQ PO SCH (09:00)
[2021-05-04] MEDS ORDERED: PROCARDIA XL 24-hr PO SCH (09:00)
[2021-05-04] MEDS ORDERED: LASIX PO SCH (09:00)
[2021-05-04] MEDS: PULMICORT NEB TX 0.5 MG NEB SCH (09:43)
[2021-05-04] MEDS: COMBIGAN EYE DROPS OP SCH (09:48)
[2021-05-04] MEDS: ASPIRIN 81 MG CHEWTAB PO SCH (09:48)
[2021-05-04] MEDS: ROCEPHIN VIAL 1 GRAM 1 G in NS 100 ML IV + SPIKE MINIBAG* 100 ML IV SCH (09:49)
[2021-05-04] MEDS: PEPCID TAB 20 MG PO SCH (09:50)
[2021-05-04] MEDS: PROTONIX INJ 40 MG VIAL IVP SCH (09:51)
[2021-05-04] MEDS ORDERED: NS 100 ML IV 100 ML ONE (10:26)
[2021-05-04 16:34] VITALS: BP 178/80
== END 2021-05-04 17:15 | disposition home or self-care (01) ==
LOC: MED/SURG 06:54 → ER 06:54 → MED/SURG 09:18
PROVIDERS: ADMIT Internal Medicine; ATTEND Internal Medicine
DX: E11.65 Type 2 diabetes mellitus with hyperglycemia; R06.02 Shortness of breath; M19.90 Unspecified osteoarthritis, unspecified site; Z20.822 Contact with and (suspected) exposure to COVID-19; I50.21 Acute systolic (congestive) heart failure; R94.31 Abnormal electrocardiogram [ECG] [EKG]; K21.9 Gastro-esophageal reflux disease without esophagitis; I16.0 Hypertensive urgency

== ENCOUNTER 2021-10-10 06:29 | Observation (INO) ==
[2021-10-10 06:41] VITALS: BMI 35.0
--- NOTE | 2021-10-10 06:56 | DR.SOBA ---
HPI <LIN GARCIA - Last Filed: 10/10/21 10:44> Time Seen Time Seen by Provider: 10/10/21 06:51 Primary Care Physician Primary Care Physician: EARL WARE HPI Comment HPI Comment: PATIENT IS 66YR OLD FEMALE IN ER VIA EMS WITH INCREASING SOB. Complaints Chief Complaint Doctors Comments: INCREASING SOB. Chief Complaint:: PT ARRIVED VIA EMS WITH C/O "I JUST CAN'T CATCH MY BREATH AND I CAN HEAR A RATTLE IN MY CHEST WHEN I LAY DOWN". PT ON NC @ 2LPM UPON ARRIVAL. COVID-19 Coronavirus risk:travel/contact w/high risk person: No Has patient experienced Coronavirus symptoms: Yes Coronavirus symptoms experienced: Shortness of Breath Reviewed Nurses Notes Reviewed: Yes Source History Provided: Patient Mode of Arrival Mode of Arrival: EMS Timing Onset of Chief Complaint: 10/10/21 Context Onset:: At Rest PE Risk Factors:: None History of:: None Currently on:: denies Neither Prehospital Care:: None and Furosemide Modifying Factors Worsens:: Exertion and Lying Flat Improves:: Rest and Sitting Up Associated Signs and Symptoms Associated Signs and Symptoms: None If Cough Cough: None PMH <LIN GARCIA - Last Filed: 10/10/21 10:44> PMH Past Medical History: Yes Past Medical History: Angina, Arthritis, CHF, Diabetes and Hypertension Past Surgical History: Yes Surgical History: Cholecystectomy and Other Past Surgical History Comment: CATARACTS Family History History of Family Medical Conditions: Yes Family Medical History: Diabetes Mellitus, Cancer and [place] Social History Type of Tobacco Use: None Alcohol Use: None Do you use any recreational Drugs:: No Travel Risk Coronavirus risk:travel/contact w/high risk person: No Has patient experienced Coronavirus symptoms: Yes Coronavirus symptoms experienced: Shortness of Breath Infectious screening Have you traveled outside the country in the last 6 months?: No Isolation: Droplet ROS <LIN GARCIA - Last Filed: 10/10/21 10:44> Review of Systems Constitutional: No Symptoms Reported, See HPI, Weakness and Fatigue; negative Fever Eyes: No Symptoms Reported and See HPI ENTM: No Symptoms Reported and See HPI; negative Nose Discharge and Nose Congestion Respiratoy: See HPI and Short of Breath; negative Moist Cough and Wheezing Cardiovascular: No Symptoms Reported, See HPI and Edema; negative Chest Pain Gastrointestinal/Abdominal: No Symptoms Reported and See HPI; negative Abdominal Pain, Diarrhea and Vomiting Genitourinary: No Symptoms Reported and See HPI; negative Dysuria and Hematuria Neurological: No Symptoms Reported and See HPI; negative Headache, Weakness and Dizziness Musculoskeletal: No Symptoms Reported and See HPI; negative Back Pain and Muscle Pain Integumentary: No Symptoms Reported and See HPI; negative Change in Color, Rash and Juandice Hematologic/Lymphatic: No Symptoms Reported, See HPI and Easy Bruising Endocrine: No Symptoms Reported and See HPI; negative Increased Thirst and Increased Urine Psychiatric: No Symptoms Reported and See HPI All Other Systems: Reviewed and Negative PE <LIN GARCIA - Last Filed: 10/10/21 10:44> Vital Signs Vitals: Temperature 98.2 F Pulse Rate 67 Respiratory Rate 17 Blood Pressure [Left Arm] 195/91 Blood Pressure 191/77 O2 Sat by Pulse Oximetry 100 General Limitations: No Limitations General Appearance: Alert and In No Apparent Distress Head Head Exam: Normal Inspection and Atraumatic Eyes Eye exam: Normal Appearance; negative Scleral Icterus and Conjunctival Injection ENT ENT Exam: Normal Exam, Normal Oropharynx, Normal External Ear Exam and TM's Normal Bilaterally Neck Neck Exam: Normal Inspection and Trachea Midline; negative Tenderness Chest Chest Inspection: Normal Inspection and Symmetric Chest Wall Rise; negative Tenderness Respiratory Respiratory Exam: Normal Lung Sounds Bilat and Respiratory Distress; negative Accessory Muscle Use and Chest Wall Tenderness Respiratory Exam: Bilateral: Rhonchi and Lower: Rhonchi Cardiovascular Cardiovascular Exam: Regular Rate, Normal Rhythm and Normal Heart Sounds; negative Systolic Murmur and Diastolic Murmur Abdominal Exam Abdominal Exam: Normal Inspection, Normal Bowel Sounds and Soft; negative Tenderness Extremities Extremities Exam: Normal Inspection and Normal Capillary Refill Back Back Exam: Normal Inspection; negative (R) CVA Tenderness and (L) CVA Tenderness Neurologic Neurological Exam: Alert and Oriented X3; negative Motor Sensory Deficit Psychiatric Psychiatric Exam: Normal Affect and Normal Mood Skin Skin Exam: Warm, Dry, Intact and Normal Color <Bobby Damon - Last Filed: 10/10/21 10:18> Vital Signs Vitals: Temperature 98.2 F Pulse Rate 67 Respiratory Rate 17 Blood Pressure [Left Arm] 195/91 Blood Pressure 191/77 O2 Sat by Pulse Oximetry 100 [facility] <LIN GARCIA - Last Filed: 10/10/21 10:44> Additional Information Obtained Additional Information Obtained From: Family Differential Diagnosis Differential Diagnosis: CHF, Mycardial Infarction, Pneumonia, Pneumothorax and Respiratory Insufficiency COURSE <LIN GARCIA - Last Filed: 10/10/21 10:44> Treatment Treatment: SEE ORDERS. PROCARDIA 60MG PO AND HYDRALAZINE 10MG PO AND LASIX 40MG IV IN ER. PATIENT SIGN OUT TO DR. DAMON AT 08:00AM. Education/Counseling Education/Counseling: Patient Educated On: Diagnosis <Bobby Damon - Last Filed: 10/10/21 10:18> Treatment Treatment: 1015 - pt signed over to ca, Dr Damon, for completion of her ER visit. Feeling a bit better. W/u shows probable degree of CHF on CXR, with elevated BNP. Initial troponin at top end of normal, 61. 2 hour repeat lower at 58. Discussed with Dr Quinn, will admit for observation. Additional IV hydralazine given for BP. ROR <LIN GARCIA - Last Filed: 10/10/21 10:44> Labs Reviewed Result Diagrams: 10/10/21 07:20 10/10/21 07:20 Laboratory: WBC 7.0 X10^3/uL (3.6-10.0) 10/10/21 07:20 RBC 4.83 X10^6/uL (3.5-5.4) 10/10/21 07:20 Hgb 12.5 g/dL (12.0-16.0) 10/10/21 07:20 Hct 37.4 % (36.0-47.0) 10/10/21 07:20 MCV 77.5 fL (80.0-100.0) L 10/10/21 07:20 MCH 25.8 pg (27.0-34.0) L 10/10/21 07:20 MCHC 33.3 g/dL (33.0-35.0) 10/10/21 07:20 RDW 15.9 % (11.6-16.5) 10/10/21 07:20 Plt Count 277 X10^3/uL (150.0-450.0) 10/10/21 07:20 MPV 8.6 fL (7.4-11.0) 10/10/21 07:20 Neut % (Auto) 51.8 % (42.0-75.0) 10/10/21 07:20 Lymph % (Auto) 38.6 % (21.0-51.0) 10/10/21 07:20 Crawford % (Auto) 6.9 % (0.0-13.0) 10/10/21 07:20 Eos % (Auto) 1.4 % (0.9-2.9) 10/10/21 07:20 Baso % (Auto) 1.3 % (0.2-1.0) H 10/10/21 07:20 Neut # (Auto) 3.6 x10^3/uL (2.2-4.8) 10/10/21 07:20 Lymph # (Auto) 2.7 X10^3/uL (1.3-2.9) 10/10/21 07:20 Crawford # (Auto) 0.5 x10^3/uL (0.3-0.8) 10/10/21 07:20 Eos # (Auto) 0.1 x10^3/uL (0.0-0.2) 10/10/21 07:20 Baso # (Auto) 0.1 X10^3/uL (0.0-0.1) 10/10/21 07:20 Absolute Nucleated RBC 0.1 /100WBC 10/10/21 07:20 Sodium 139 mmol/L (136-145) 10/10/21 07:20 Corrected Sodium 141 mmol/L (136-145) 10/10/21 07:20 Potassium 3.6 mmol/L (3.5-5.1) 10/10/21 07:20 Chloride 98 mmol/L (98-107) 10/10/21 07:20 Carbon Dioxide 31.5 mmol/L (21-32) 10/10/21 07:20 BUN 15 mg/dL (7-18) 10/10/21 07:20 Creatinine 1.25 mg/dL (0.55-1.02) H 10/10/21 07:20 Est GFR (MDRD) Af Amer 55 (>60) L 10/10/21 07:20 Est GFR (MDRD) Non-Af 46 (>60) L 10/10/21 07:20 Glucose 189 mg/dL (65-99) H 10/10/21 07:20 Calcium 9.0 mg/dL (8.5-10.1) 10/10/21 07:20 Corrected Calcium 10.0 mg/dL (8.5-10.1) 10/10/21 07:20 Total Bilirubin 0.40 mg/dL (0.2-1.0) 10/10/21 07:20 AST 20 Units/L (15-37) 10/10/21 07:20 ALT 15 Units/L (12-78) 10/10/21 07:20 Alkaline Phosphatase 145 Units/L (46-116) H 10/10/21 07:20 Creatine Kinase 113 Units/L (26-192) 10/10/21 09:27 CK-MB (CK-2) 1.6 ng/mL (0-4.0) 10/10/21 09:27 CK/CKMB % Calc 1.4 % (<4) 10/10/21 09:27 Troponin I High Sens 58.2 ng/L (4.0-60.0) 10/10/21 09:27 B-Natriuretic Peptide 291 pg/mL (0-79) H 10/10/21 07:20 Total Protein 7.1 g/dL (6.4-8.2) 10/10/21 07:20 Albumin 2.8 g/dL (3.4-5.0) L 10/10/21 07:20 Globulin 4.3 g/dL (2.5-4.5) 10/10/21 07:20 Albumin/Globulin Ratio 0.7 Ratio (1.1-2.1) L 10/10/21 07:20 SARS-CoV-2 (PCR) Negative (NEGATIVE) 10/10/21 09:07 Influenza Type A (PCR) Negative (NEGATIVE) 10/10/21 09:07 Influenza Type B (PCR) Negative (NEGATIVE) 10/10/21 09:07 RSV (PCR) Negative (NEGATIVE) 10/10/21 09:07 EKG Rate: 64 Rhythm: Afib and PVCs Block: None Hypertrophy: None ST: Old, Ant and Infarct <Bobby Damon - Last Filed: 10/10/21 10:18> Labs Reviewed Laboratory Results Reviewed?: Yes Laboratory: WBC 7.0 X10^3/uL (3.6-10.0) 10/10/21 07:20 RBC 4.83 X10^6/uL (3.5-5.4) 10/10/21 07:20 Hgb 12.5 g/dL (12.0-16.0) 10/10/21 07:20 Hct 37.4 % (36.0-47.0) 10/10/21 07:20 MCV 77.5 fL (80.0-100.0) L 10/10/21 07:20 MCH 25.8 pg (27.0-34.0) L 10/10/21 07:20 MCHC 33.3 g/dL (33.0-35.0) 10/10/21 07:20 RDW 15.9 % (11.6-16.5) 10/10/21 07:20 Plt Count 277 X10^3/uL (150.0-450.0) 10/10/21 07:20 MPV 8.6 fL (7.4-11.0) 10/10/21 07:20 Neut % (Auto) 51.8 % (42.0-75.0) 10/10/21 07:20 Lymph % (Auto) 38.6 % (21.0-51.0) 10/10/21 07:20 Crawford % (Auto) 6.9 % (0.0-13.0) 10/10/21 07:20 Eos % (Auto) 1.4 % (0.9-2.9) 10/10/21 07:20 Baso % (Auto) 1.3 % (0.2-1.0) H 10/10/21 07:20 Neut # (Auto) 3.6 x10^3/uL (2.2-4.8) 10/10/21 07:20 Lymph # (Auto) 2.7 X10^3/uL (1.3-2.9) 10/10/21 07:20 Crawford # (Auto) 0.5 x10^3/uL (0.3-0.8) 10/10/21 07:20 Eos # (Auto) 0.1 x10^3/uL (0.0-0.2) 10/10/21 07:20 Baso # (Auto) 0.1 X10^3/uL (0.0-0.1) 10/10/21 07:20 Absolute Nucleated RBC 0.1 /100WBC 10/10/21 07:20 Sodium 139 mmol/L (136-145) 10/10/21 07:20 Corrected Sodium 141 mmol/L (136-145) 10/10/21 07:20 Potassium 3.6 mmol/L (3.5-5.1) 10/10/21 07:20 Chloride 98 mmol/L (98-107) 10/10/21 07:20 Carbon Dioxide 31.5 mmol/L (21-32) 10/10/21 07:20 BUN 15 mg/dL (7-18) 10/10/21 07:20 Creatinine 1.25 mg/dL (0.55-1.02) H 10/10/21 07:20 Est GFR (MDRD) Af Amer 55 (>60) L 10/10/21 07:20 Est GFR (MDRD) Non-Af 46 (>60) L 10/10/21 07:20 Glucose 189 mg/dL (65-99) H 10/10/21 07:20 Calcium 9.0 mg/dL (8.5-10.1) 10/10/21 07:20 Corrected Calcium 10.0 mg/dL (8.5-10.1) 10/10/21 07:20 Total Bilirubin 0.40 mg/dL (0.2-1.0) 10/10/21 07:20 AST 20 Units/L (15-37) 10/10/21 07:20 ALT 15 Units/L (12-78) 10/10/21 07:20 Alkaline Phosphatase 145 Units/L (46-116) H 10/10/21 07:20 Creatine Kinase 113 Units/L (26-192) 10/10/21 09:27 CK-MB (CK-2) 1.6 ng/mL (0-4.0) 10/10/21 09:27 CK/CKMB % Calc 1.4 % (<4) 10/10/21 09:27 Troponin I High Sens 58.2 ng/L (4.0-60.0) 10/10/21 09:27 B-Natriuretic Peptide 291 pg/mL (0-79) H 10/10/21 07:20 Total Protein 7.1 g/dL (6.4-8.2) 10/10/21 07:20 Albumin 2.8 g/dL (3.4-5.0) L 10/10/21 07:20 Globulin 4.3 g/dL (2.5-4.5) 10/10/21 07:20 Albumin/Globulin Ratio 0.7 Ratio (1.1-2.1) L 10/10/21 07:20 SARS-CoV-2 (PCR) Negative (NEGATIVE) 10/10/21 09:07 Influenza Type A (PCR) Negative (NEGATIVE) 10/10/21 09:07 Influenza Type B (PCR) Negative (NEGATIVE) 10/10/21 09:07 RSV (PCR) Negative (NEGATIVE) 10/10/21 09:07 Opioid <LIN GARCIA - Last Filed: 10/10/21 10:44> Opioid Risk Tool Age (Bayron box if 16-45): No History of Preadolescent Sexual Abuse: No Total: 0 Total Score Risk Category: Low Risk Copyright: Israel MCBRIDE predicting aberrant behaviors <Bobby Damon - Last Filed: 10/10/21 10:18> Opioid Risk Tool Total: 0 Total Score Risk Category: Low Risk <LIN GARCIA - Last Filed: 10/10/21 10:44> Diagnosis Discharge Problem: CHF (congestive heart failure) Qualifiers: Heart failure type: combined systolic and diastolic Heart failure chronicity: acute on chronic Qualified Code(s): I50.43 - Acute on chronic combined systolic (congestive) and diastolic (congestive) heart failure Hypertension Qualifiers: Hypertension type: primary hypertension Qualified Code(s): I10 - Essential (primary) hypertension Atrial fibrillation Qualifiers: Atrial fibrillation type: unspecified Qualified Code(s): I48.91 - Unspecified atrial fibrillation Instructions Forms: Precautions for COVID19 [facility] Social Distancing
[2021-10-10] MEDS ORDERED: PROCARDIA XL PO ONE (07:02)
[2021-10-10] MEDS ORDERED: APRESOLINE TAB 10 MG PO ONE (07:03)
[2021-10-10] MEDS ORDERED: LASIX IVP ONE ×2 (07:31→07:36)
--- NOTE | 2021-10-10 07:36 | RAD ---
HISTORYShortness of breathSTUDYChest AP [id number] examination is somewhat underpenetrated. The heart is mildly enlarged. No definite congestive heart failure or acute alveolar infiltrates are identified. Small right pleural effusion is suspected. Bony thorax is unremarkable.IMPRESSIONMild cardiomegaly without definite congestive heart failureSuspect small right pleural effusionNo definite acute infiltratesElectronically signed by: CINDY WHELAN (Oct 10, 2021 07:35:09)
[2021-10-10 07:57] LABS: BASOPHILS # (AUTO) 0.1 X10^3/uL (0.0-0.1); BASOPHILS % (AUTO) 1.3 % (0.2-1.0); EOSINOPHILS # (AUTO) 0.1 x10^3/uL (0.0-0.2); EOSINOPHILS % (AUTO) 1.4 % (0.9-2.9); HEMATOCRIT 37.4 % (36.0-47.0); HEMOGLOBIN 12.5 g/dL (12.0-16.0); LYMPHOCYTES # (AUTO) 2.7 X10^3/uL (1.3-2.9); LYMPHOCYTES % (AUTO) 38.6 % (21.0-51.0); MEAN CORPUSCULAR HEMOGLOBIN 25.8 pg (27.0-34.0); MEAN CORPUSCULAR HGB CONC 33.3 g/dL (33.0-35.0); MEAN CORPUSCULAR VOLUME 77.5 fL (80.0-100.0); MEAN PLATELET VOLUME 8.6 fL (7.4-11.0); MONOCYTES # (AUTO) 0.5 x10^3/uL (0.3-0.8); MONOCYTES % (AUTO) 6.9 % (0.0-13.0); NEUTROPHILS # (AUTO) 3.6 x10^3/uL (2.2-4.8); NEUTROPHILS % (AUTO) 51.8 % (42.0-75.0); PLATELET COUNT 277 X10^3/uL (150.0-450.0); RED BLOOD COUNT 4.83 X10^6/uL (3.5-5.4); RED CELL DISTRIBUTION WIDTH 15.9 % (11.6-16.5)
[2021-10-10 08:20] LABS: ALBUMIN 2.8 g/dL (3.4-5.0); CARBON DIOXIDE 31.5 mmol/L (21-32); CKMB % 1.4 % (<4); CREATINE KINASE MB 1.5 ng/mL (0-4.0); CREATININE 1.25 mg/dL (0.55-1.02); TOTAL PROTEIN 7.1 g/dL (6.4-8.2)
[2021-10-10 10:02] LABS: CKMB % 1.4 % (<4); CREATINE KINASE MB 1.6 ng/mL (0-4.0)
[2021-10-10] MEDS ORDERED: APRESOLINE INJ 20 MG VIAL IVP ONE (10:17)
[2021-10-10] MEDS ORDERED: APRESOLINE INJ 20 MG VIAL ONE (10:20)
[2021-10-10] MEDS ORDERED: NITROSTAT SL PRN (11:56)
[2021-10-10] MEDS: APRESOLINE TAB 25 MG PO SCH ×2 (13:45→21:14)
[2021-10-10] MEDS: ULTRAM PO PRN (16:29)
[2021-10-10 19:25] LABS: CKMB % 1.6 % (<4); CREATINE KINASE MB 1.9 ng/mL (0-4.0)
[2021-10-10] MEDS ORDERED: PROCARDIA XL 24-hr PO ONE (19:28)
--- NOTE | 2021-10-10 20:03 | DR.H&P ---
H&P - Chief Complaint Chief Complaint: Dyspnea - History of Present Illness History of Present Illness: Patient is a 66 year old AAF who is being admitted due to dyspnea and CHF exacerbation. Patient reports she became SOB earlier this morning which progressively became worse and therefore she came to ER. Patient reports improvement in symptoms since being treated in ER. Denies fever, chills, cough, syncope, CP, changes in bowel or bladder or appetite. States she was admitted to hospital recently for similar issues. No other concerns at present. PCP Dr. Quinn. PMH CHF, COPD, chronic pain, HTN, HLD, OA, and DM. 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, Other - Family History Family Medical History: Diabetes Mellitus, Cancer, [place] - Social History Does patient currently use any type of tobacco product: No Have you used tobacco products in the last 12 months: No Type of Tobacco Use: Cigarettes How many years tobacco product used: 5 Does any household member use tobacco: No Alcohol Use: None Drug Use: None - Medications Home Medications: GISEL Inhibitors Allergy (Verified 11/24/17 09:42) clonidine Allergy (Verified 05/01/21 06:56) codeine Allergy (Verified 11/24/17 09:42) hydrocodone Allergy (Verified 11/24/17 09:42) insulin detemir [From Levemir] Allergy (Verified 11/24/17 09:42) Iodinated Contrast Media Allergy (Verified 01/14/20 13:40) iodine Allergy (Verified 11/24/17 09:42) ketorolac [From Toradol] Allergy (Verified 11/24/17 09:42) olmesartan [From Benicar] Allergy (Verified 11/24/17 09:42) insulin glargine [From Lantus] Adverse Reaction (Verified 11/24/17 09:42) BETA-BLOCKERS Allergy (Uncoded 11/24/19 14:52) CONTINUE taking the following medications gabapentin 300 mg PO TID 10/10/21 [History] nifedipine [Procardia XL] 60 mg PO BID 10/10/21 [History] - Review of Systems Constitutional: See HPI Eyes: See HPI ENT: See HPI Respiratory: See HPI Cardiovascular: See HPI Gastrointestinal: See HPI Genitourinary: See HPI Musculoskeletal: See HPI Skin: See HPI Neurological: See HPI - Physical Exam Vital Signs: Temperature 98.7 F Pulse Rate [Right Brachial] 97 Pulse Rate 73 Respiratory Rate 22 Blood Pressure [Right Arm] 170/90 Blood Pressure [Left Arm] 195/91 Blood Pressure 182/78 O2 Sat by Pulse Oximetry 98 Oriented: Normal, Time, Person, Place Eyes: Normal Ear: Normal Nose: Normal Throat: Normal Respiratory: Diminished Throughout Cardiovascular: Normal : Normal Auscultation: Bowel Sounds: Normal Palpation: Normal Tenderness: Normal Skin: Normal Musculoskeletal: Back:Lumbar, Instability Psychiatric: Normal Mood Description: Calm Affect: Normal Speech Pattern: Clear, Appropriate - Assessment/Plan (1) Acute dyspnea Status: Acute Plan: Secondary to CHF. (2) Hypertensive urgency Status: Acute Plan: BP control, monitor, resume home meds (3) CHF (congestive heart failure) Qualifiers: Heart failure type: combined systolic and diastolic Heart failure chronicity: acute on chronic Qualified Code(s): I50.43 - Acute on chronic combined systolic (congestive) and diastolic (congestive) heart failure Status: Acute Plan: IV lasix. Repeat labs and CXR in am. Serial cardiacs and EKGs. Tele. Verify home meds (4) Elevated troponin Status: Acute Plan: Trend. Patient denies CP. - Allergies Allergies/Adverse Reactions: Allergies Allergy/AdvReac Type Severity Reaction Status Date / Time GISEL Inhibitors Allergy Verified 11/24/17 09:42 clonidine Allergy Verified 05/01/21 06:56 codeine Allergy Verified 11/24/17 09:42 hydrocodone Allergy Verified 11/24/17 09:42 insulin detemir Allergy Verified 11/24/17 09:42 [From Levemir] Iodinated Contrast Media Allergy Verified 01/14/20 13:40 iodine Allergy Verified 11/24/17 09:42 ketorolac [From Toradol] Allergy Verified 11/24/17 09:42 olmesartan [From Benicar] Allergy Verified 11/24/17 09:42 insulin glargine AdvReac Verified 11/24/17 09:42 [From Lantus] BETA-BLOCKERS Allergy Uncoded 11/24/19 14:52
[2021-10-10] MEDS: MILK OF MAGNESIA PO SCH (20:34)
[2021-10-10] MEDS: COLACE CAP 100 MG PO SCH (20:34)
[2021-10-10] MEDS: MICRO K EXTEN CAP 10 MEQ PO SCH (20:34)
[2021-10-10] MEDS: COMBIGAN EYE DROPS OP SCH (20:35)
[2021-10-10] MEDS: SNACK - Diabetic Appropriate PO SCH (20:35)
[2021-10-10] MEDS: FLONASE NASAL SPRAY ENOSTRIL SCH (20:35)
[2021-10-10] MEDS: HumuLIN 70/30 (NovoLIN 70/30) SC SCH (20:36)
[2021-10-10] MEDS: PROCARDIA XL 24-hr PO SCH (20:37)
[2021-10-10] MEDS: PROTONIX TAB 40 MG PO SCH (20:38)
[2021-10-11 01:15] LABS: CKMB % 1.2 % (<4); CREATINE KINASE MB 1.2 ng/mL (0-4.0)
[2021-10-11] MEDS: APRESOLINE TAB 25 MG PO SCH ×3 (05:15→22:29)
[2021-10-11 05:58] LABS: ABG ALLEN TEST POS; ABG BASE EXCESS 8.8 mmol/L (-2.0-2.0); ABG HCO3 32.7 mmol/L (22-26)
[2021-10-11 07:00] LABS: BASOPHILS # (AUTO) 0.1 X10^3/uL (0.0-0.1); BASOPHILS % (AUTO) 1.2 % (0.2-1.0); EOSINOPHILS # (AUTO) 0.1 x10^3/uL (0.0-0.2); EOSINOPHILS % (AUTO) 1.8 % (0.9-2.9); HEMATOCRIT 34.7 % (36.0-47.0); HEMOGLOBIN 11.6 g/dL (12.0-16.0); LYMPHOCYTES # (AUTO) 2.3 X10^3/uL (1.3-2.9); LYMPHOCYTES % (AUTO) 37.7 % (21.0-51.0); MEAN CORPUSCULAR HEMOGLOBIN 26.1 pg (27.0-34.0); MEAN CORPUSCULAR HGB CONC 33.4 g/dL (33.0-35.0); MEAN CORPUSCULAR VOLUME 78.2 fL (80.0-100.0); MEAN PLATELET VOLUME 9.5 fL (7.4-11.0); MONOCYTES # (AUTO) 0.4 x10^3/uL (0.3-0.8); MONOCYTES % (AUTO) 7.1 % (0.0-13.0); NEUTROPHILS # (AUTO) 3.2 x10^3/uL (2.2-4.8); NEUTROPHILS % (AUTO) 52.2 % (42.0-75.0); PLATELET COUNT 253 X10^3/uL (150.0-450.0); RED BLOOD COUNT 4.43 X10^6/uL (3.5-5.4); RED CELL DISTRIBUTION WIDTH 15.7 % (11.6-16.5); WHITE BLOOD COUNT 6.1 X10^3/uL (3.6-10.0)
--- NOTE | 2021-10-11 07:10 | RAD ---
HISTORYCHFSTUDYCHEST, 1 VIEWCOMPARISONOne day prior.TECHNIQUEAP view of the chestFINDINGSCardiac and mediastinal contours are within normal limits. Similar appearance of lower lung predominant airspace opacities. Cannot exclude small pleural effusions. No pneumothorax. Soft tissue attenuation limits evaluation.IMPRESSIONBibasilar airspace opacities may represent pulmonary edema or pneumonia. Cannot exclude small pleural effusions.Electronically signed by: Luther Rachel (Oct 11, 2021 07:09:23)
[2021-10-11 07:15] LABS: ALBUMIN 2.5 g/dL (3.4-5.0); CALCIUM 8.6 mg/dL (8.5-10.1); CARBON DIOXIDE 29.8 mmol/L (21-32); COR CA(FOR HYPOALB) 9.8 mg/dL (8.5-10.1); CREATINE KINASE MB 1.2 ng/mL (0-4.0); CREATININE 1.48 mg/dL (0.55-1.02); TOTAL PROTEIN 6.5 g/dL (6.4-8.2)
[2021-10-11] MEDS ORDERED: LASIX PO SCH (09:00)
[2021-10-11] MEDS: COMBIGAN EYE DROPS OP SCH ×2 (09:01→21:26)
[2021-10-11] MEDS: FLONASE NASAL SPRAY ENOSTRIL SCH ×2 (09:02→21:26)
[2021-10-11] MEDS: PROCARDIA XL 24-hr PO SCH ×2 (09:03→21:28)
[2021-10-11] MEDS: PROTONIX TAB 40 MG PO SCH ×2 (09:03→21:28)
[2021-10-11] MEDS: MILK OF MAGNESIA PO SCH ×2 (09:03→21:27)
[2021-10-11] MEDS: MICRO K EXTEN CAP 10 MEQ PO SCH ×2 (09:03→21:27)
[2021-10-11] MEDS: LASIX IVP SCH ×2 (09:18→16:38)
[2021-10-11] MEDS: HumuLIN 70/30 (NovoLIN 70/30) SC SCH ×2 (09:23→21:27)
[2021-10-11] MEDS: LOVENOX INJ 40 MG SYR SC SCH ×2 (11:58→12:10)
[2021-10-11] MEDS: ULTRAM PO PRN (16:00)
[2021-10-11] MEDS: COLACE CAP 100 MG PO SCH (21:26)
[2021-10-11] MEDS: SNACK - Diabetic Appropriate PO SCH (21:26)
--- NOTE | 2021-10-12 00:04 | PCM.PROG ---
Progress Note - Progress Note for Day of Date of Exam: 10/11/21 - Subjective Subjective: Patient is a 66 year old AAF who was admitted due to CHF. Patient has never had a heart cath or cardiac work up however has had CHF exacerbation multiple times. Patient denies CP. Today reports dyspnea improved. No other concerns at present. - Past Medical Family Social History Past Med/Fam/Surg Hx: No changes since H&P Allergies: Allergies GISEL Inhibitors Allergy (Verified 11/24/17 09:42) clonidine Allergy (Verified 05/01/21 06:56) codeine Allergy (Verified 11/24/17 09:42) hydrocodone Allergy (Verified 11/24/17 09:42) insulin detemir [From Levemir] Allergy (Verified 11/24/17 09:42) Iodinated Contrast Media Allergy (Verified 01/14/20 13:40) iodine Allergy (Verified 11/24/17 09:42) ketorolac [From Toradol] Allergy (Verified 11/24/17 09:42) olmesartan [From Benicar] Allergy (Verified 11/24/17 09:42) insulin glargine [From Lantus] Adverse Reaction (Verified 11/24/17 09:42) BETA-BLOCKERS Allergy (Uncoded 11/24/19 14:52) - Review of Systems ROS: No change since H&P - Vital Signs and I&O's Vital Signs: Temperature 97.5 F Pulse Rate [Right Brachial] 108 Pulse Rate 88 Respiratory Rate 20 Blood Pressure [Right Arm] 167/72 Blood Pressure [Left Arm] 195/91 Blood Pressure 182/78 O2 Sat by Pulse Oximetry 97 Intake and Output: Intake & Output 10/09/21 10/10/21 10/11/21 10/12/21 23:59 23:59 23:59 23:59 Intake Total 130 / 130 1734 / 1734 Balance 130 / 130 1734 / 1734 - Physical Exam Oriented: Normal, Time, Person, Place Eyes: Normal Ear: Normal Nose: Normal Throat: Normal Respiratory: Diminished Cardiovascular: Normal : Normal Auscultation: Bowel Sounds: Normal Palpation: Normal Tenderness: Normal Skin: Normal Musculoskeletal: Back:Lumbar, Instability Psychiatric: Normal Mood Description: Calm Affect: Normal Speech Pattern: Clear, Appropriate - Laboratory and Diagnostics Result Diagrams: 10/11/21 06:11 10/11/21 06:11 Labs: Laboratory WBC 6.1 X10^3/uL (3.6-10.0) 10/11/21 06:11 RBC 4.43 X10^6/uL (3.5-5.4) 10/11/21 06:11 Hgb 11.6 g/dL (12.0-16.0) L 10/11/21 06:11 Hct 34.7 % (36.0-47.0) L 10/11/21 06:11 MCV 78.2 fL (80.0-100.0) L 10/11/21 06:11 MCH 26.1 pg (27.0-34.0) L 10/11/21 06:11 MCHC 33.4 g/dL (33.0-35.0) 10/11/21 06:11 RDW 15.7 % (11.6-16.5) 10/11/21 06:11 Plt Count 253 X10^3/uL (150.0-450.0) 10/11/21 06:11 MPV 9.5 fL (7.4-11.0) 10/11/21 06:11 Neut % (Auto) 52.2 % (42.0-75.0) 10/11/21 06:11 Lymph % (Auto) 37.7 % (21.0-51.0) 10/11/21 06:11 [place] % (Auto) 7.1 % (0.0-13.0) 10/11/21 06:11 Eos % (Auto) 1.8 % (0.9-2.9) 10/11/21 06:11 Baso % (Auto) 1.2 % (0.2-1.0) H 10/11/21 06:11 Neut # (Auto) 3.2 x10^3/uL (2.2-4.8) 10/11/21 06:11 Lymph # (Auto) 2.3 X10^3/uL (1.3-2.9) 10/11/21 06:11 [place] # (Auto) 0.4 x10^3/uL (0.3-0.8) 10/11/21 06:11 Eos # (Auto) 0.1 x10^3/uL (0.0-0.2) 10/11/21 06:11 Baso # (Auto) 0.1 X10^3/uL (0.0-0.1) 10/11/21 06:11 Absolute Nucleated RBC 0.1 /100WBC 10/11/21 06:11 Sample Site Lr 10/11/21 05:00 ABG pH 7.510 (7.35-7.45) H 10/11/21 05:00 ABG pCO2 41.0 mmHg (35.0-45.0) 10/11/21 05:00 ABG pO2 63.0 mmHg (80.0-100.0) L 10/11/21 05:00 ABG HCO3 32.7 mmol/L (22-26) H* 10/11/21 05:00 ABG O2 Saturation 94.0 % (90-100) 10/11/21 05:00 ABG Base Excess 8.8 mmol/L (-2.0-2.0) H 10/11/21 05:00 Jason Test Pos 10/11/21 05:00 A-a Gradient 35.0 mmHg 10/11/21 05:00 FiO2 21.0 10/11/21 05:00 Blood Gas Comments Amy well sw 10/11/21 05:00 Sodium 139 mmol/L (136-145) 10/11/21 06:11 Corrected Sodium 142 mmol/L (136-145) 10/11/21 06:11 Potassium 4.1 mmol/L (3.5-5.1) 10/11/21 06:11 Chloride 101 mmol/L (98-107) 10/11/21 06:11 Carbon Dioxide 29.8 mmol/L (21-32) 10/11/21 06:11 BUN 22 mg/dL (7-18) H 10/11/21 06:11 Creatinine 1.48 mg/dL (0.55-1.02) H 10/11/21 06:11 Est GFR (MDRD) Af Amer 46 (>60) L 10/11/21 06:11 Est GFR (MDRD) Non-Af 38 (>60) L 10/11/21 06:11 Glucose 239 mg/dL (65-99) H 10/11/21 06:11 POC Glucose (mg/dL) 211 mg/dL (65-99) H 10/11/21 19:48 Calcium 8.6 mg/dL (8.5-10.1) 10/11/21 06:11 Corrected Calcium 9.8 mg/dL (8.5-10.1) 10/11/21 06:11 Total Bilirubin 0.50 mg/dL (0.2-1.0) 10/11/21 06:11 AST 20 Units/L (15-37) 10/11/21 06:11 ALT 11 Units/L (12-78) L 10/11/21 06:11 Alkaline Phosphatase 132 Units/L (46-116) H 10/11/21 06:11 Creatine Kinase 115 Units/L (26-192) 10/11/21 06:11 CK-MB (CK-2) 1.2 ng/mL (0-4.0) 10/11/21 06:11 CK/CKMB % Calc 1.0 % (<4) 10/11/21 06:11 Troponin I High Sens 60.0 ng/L (4.0-60.0) 10/11/21 06:11 B-Natriuretic Peptide 291 pg/mL (0-79) H 10/10/21 07:20 Total Protein 6.5 g/dL (6.4-8.2) 10/11/21 06:11 Albumin 2.5 g/dL (3.4-5.0) L 10/11/21 06:11 Globulin 4.0 g/dL (2.5-4.5) 10/11/21 06:11 Albumin/Globulin Ratio 0.6 Ratio (1.1-2.1) L 10/11/21 06:11 SARS-CoV-2 (PCR) Negative (NEGATIVE) 10/10/21 09:07 Influenza Type A (PCR) Negative (NEGATIVE) 10/10/21 09:07 Influenza Type B (PCR) Negative (NEGATIVE) 10/10/21 09:07 RSV (PCR) Negative (NEGATIVE) 10/10/21 09:07 - Plan (1) Acute dyspnea Status: Acute Plan: Secondary to CHF. (2) Hypertensive urgency Status: Acute Plan: BP control, monitor, resume home meds (3) CHF (congestive heart failure) Status: Acute Qualifiers: Heart failure type: combined systolic and diastolic Heart failure chronicity: acute on chronic Qualified Code(s): I50.43 - Acute on chronic combined systolic (congestive) and diastolic (congestive) heart failure Plan: IV lasix. Repeat labs and CXR in am. Serial cardiacs and EKGs. Tele. Verify home meds (4) Elevated troponin Status: Acute Plan: Trend. Patient denies CP.
[2021-10-12] MEDS: APRESOLINE TAB 25 MG PO SCH ×3 (05:08→21:22)
[2021-10-12 08:49] LABS: BASOPHILS # (AUTO) 0.2 X10^3/uL (0.0-0.1); BASOPHILS % (AUTO) 3.1 % (0.2-1.0); EOSINOPHILS # (AUTO) 0.1 x10^3/uL (0.0-0.2); EOSINOPHILS % (AUTO) 2.4 % (0.9-2.9); HEMATOCRIT 35.1 % (36.0-47.0); HEMOGLOBIN 11.5 g/dL (12.0-16.0); LYMPHOCYTES % (AUTO) 36.8 % (21.0-51.0); MEAN CORPUSCULAR HEMOGLOBIN 25.9 pg (27.0-34.0); MEAN CORPUSCULAR HGB CONC 32.8 g/dL (33.0-35.0); MEAN CORPUSCULAR VOLUME 78.9 fL (80.0-100.0); MEAN PLATELET VOLUME 9.3 fL (7.4-11.0); MONOCYTES # (AUTO) 0.4 x10^3/uL (0.3-0.8); MONOCYTES % (AUTO) 6.9 % (0.0-13.0); NEUTROPHILS # (AUTO) 2.8 x10^3/uL (2.2-4.8); NEUTROPHILS % (AUTO) 50.8 % (42.0-75.0); PLATELET COUNT 219 X10^3/uL (150.0-450.0); RED BLOOD COUNT 4.45 X10^6/uL (3.5-5.4); RED CELL DISTRIBUTION WIDTH 16.1 % (11.6-16.5); WHITE BLOOD COUNT 5.5 X10^3/uL (3.6-10.0)
[2021-10-12 09:17] LABS: ALANINE AMINOTRANSFERASE 12 Units/L (12-78); ALBUMIN 2.4 g/dL (3.4-5.0); ALKALINE PHOSPHATASE 129 Units/L (46-116); ASPARTATE AMINO TRANSFERASE 21 Units/L (15-37); BLOOD UREA NITROGEN 22 mg/dL (7-18); CALCIUM 8.5 mg/dL (8.5-10.1); CARBON DIOXIDE 30.3 mmol/L (21-32); CHLORIDE 102 mmol/L (98-107); COR CA(FOR HYPOALB) 9.8 mg/dL (8.5-10.1); COR NA(FOR HYPERGLY) 142 mmol/L (136-145); CREATINE KINASE 103 Units/L (26-192); CREATINE KINASE MB < 1.0 ng/mL (0-4.0); CREATININE 1.55 mg/dL (0.55-1.02); SODIUM 139 mmol/L (136-145); TOTAL PROTEIN 6.6 g/dL (6.4-8.2); eGFR NON BLACK RACES 36 (>60)
--- NOTE | 2021-10-12 09:28 | RAD ---
HISTORYSOBSTUDYCHEST, 1 [id number]/12/2022.TECHNIQUEAP view of the chestFINDINGSThe cardiac silhouette is stably enlarged. Mediastinal contours appear stable. Bilateral hazy mid to lower lung opacities. Cannot exclude small pleural effusions. No pneumothorax. Soft tissue attenuation limits evaluation.IMPRESSIONHazy bibasilar lung opacities may represent pulmonary edema or pneumonia. Similar appearance to prior.Electronically signed by: Luther Rachel (Oct 12, 2021 09:26:30)
[2021-10-12] MEDS: MILK OF MAGNESIA PO SCH ×2 (09:45→20:32)
[2021-10-12] MEDS: PROTONIX TAB 40 MG PO SCH ×2 (09:45→20:32)
[2021-10-12] MEDS: PROCARDIA XL 24-hr PO SCH ×2 (09:45→20:32)
[2021-10-12] MEDS: FLONASE NASAL SPRAY ENOSTRIL SCH ×2 (09:46→20:31)
[2021-10-12] MEDS: MICRO K EXTEN CAP 10 MEQ PO SCH ×2 (09:46→20:31)
[2021-10-12] MEDS: COMBIGAN EYE DROPS OP SCH ×2 (09:46→20:31)
[2021-10-12] MEDS: LOVENOX INJ 40 MG SYR SC SCH (09:51)
[2021-10-12] MEDS: HumuLIN 70/30 (NovoLIN 70/30) SC SCH ×2 (10:30→21:59)
[2021-10-12] MEDS: LASIX IVP SCH ×2 (10:31→16:47)
[2021-10-12] MEDS: ULTRAM PO PRN ×2 (16:48→22:49)
--- NOTE | 2021-10-12 16:50 | PCM.PROG ---
Progress Note - Subjective Subjective: Patient is a 66 year old AAF who was admitted due to CHF. Patient has never had a heart cath or cardiac work up however has had CHF exacerbation multiple times. Patient denies CP. Today reports dyspnea improved. No other concerns at present. Plan for transfer for further cardiac eval of CHF; pending bed availability . - Past Medical Family Social History Past Med/Fam/Surg Hx: No changes since H&P Allergies: Allergies GISEL Inhibitors Allergy (Verified 11/24/17 09:42) clonidine Allergy (Verified 05/01/21 06:56) codeine Allergy (Verified 11/24/17 09:42) hydrocodone Allergy (Verified 11/24/17 09:42) insulin detemir [From Levemir] Allergy (Verified 11/24/17 09:42) Iodinated Contrast Media Allergy (Verified 01/14/20 13:40) iodine Allergy (Verified 11/24/17 09:42) ketorolac [From Toradol] Allergy (Verified 11/24/17 09:42) olmesartan [From Benicar] Allergy (Verified 11/24/17 09:42) insulin glargine [From Lantus] Adverse Reaction (Verified 11/24/17 09:42) BETA-BLOCKERS Allergy (Uncoded 11/24/19 14:52) - Review of Systems ROS: No change since H&P - Vital Signs and I&O's Vital Signs: Temperature 98.6 F Pulse Rate [Right Brachial] 53 Pulse Rate 88 Respiratory Rate 18 Blood Pressure [Right Arm] 178/81 Blood Pressure [Left Arm] 150/80 Blood Pressure 182/78 O2 Sat by Pulse Oximetry 99 Intake and Output: Intake & Output 10/09/21 10/10/21 10/11/21 10/12/21 23:59 23:59 23:59 23:59 Intake Total 130 / 130 1734 / 1734 2039 Balance 130 / 130 1734 / 1734 2039 - Physical Exam Oriented: Normal, Time, Person, Place Eyes: Normal Ear: Normal Nose: Normal Throat: Normal Respiratory: Diminished Cardiovascular: Normal : Normal Auscultation: Bowel Sounds: Normal Palpation: Normal Tenderness: Normal Skin: Normal Musculoskeletal: Back:Lumbar, Instability Psychiatric: Normal Mood Description: Calm Affect: Normal Speech Pattern: Clear, Appropriate - Laboratory and Diagnostics Result Diagrams: 10/12/21 08:30 10/12/21 08:30 Labs: Laboratory WBC 5.5 X10^3/uL (3.6-10.0) 10/12/21 08:30 RBC 4.45 X10^6/uL (3.5-5.4) 10/12/21 08:30 Hgb 11.5 g/dL (12.0-16.0) L 10/12/21 08:30 Hct 35.1 % (36.0-47.0) L 10/12/21 08:30 MCV 78.9 fL (80.0-100.0) L 10/12/21 08:30 MCH 25.9 pg (27.0-34.0) L 10/12/21 08:30 MCHC 32.8 g/dL (33.0-35.0) L 10/12/21 08:30 RDW 16.1 % (11.6-16.5) 10/12/21 08:30 Plt Count 219 X10^3/uL (150.0-450.0) 10/12/21 08:30 MPV 9.3 fL (7.4-11.0) 10/12/21 08:30 Neut % (Auto) 50.8 % (42.0-75.0) 10/12/21 08:30 Lymph % (Auto) 36.8 % (21.0-51.0) 10/12/21 08:30 [place] % (Auto) 6.9 % (0.0-13.0) 10/12/21 08:30 Eos % (Auto) 2.4 % (0.9-2.9) 10/12/21 08:30 Baso % (Auto) 3.1 % (0.2-1.0) H 10/12/21 08:30 Neut # (Auto) 2.8 x10^3/uL (2.2-4.8) 10/12/21 08:30 Lymph # (Auto) 2.0 X10^3/uL (1.3-2.9) 10/12/21 08:30 [place] # (Auto) 0.4 x10^3/uL (0.3-0.8) 10/12/21 08:30 Eos # (Auto) 0.1 x10^3/uL (0.0-0.2) 10/12/21 08:30 Baso # (Auto) 0.2 X10^3/uL (0.0-0.1) H 10/12/21 08:30 Absolute Nucleated RBC 0.1 /100WBC 10/12/21 08:30 Sample Site Lr 10/11/21 05:00 ABG pH 7.510 (7.35-7.45) H 10/11/21 05:00 ABG pCO2 41.0 mmHg (35.0-45.0) 10/11/21 05:00 ABG pO2 63.0 mmHg (80.0-100.0) L 10/11/21 05:00 ABG HCO3 32.7 mmol/L (22-26) H* 10/11/21 05:00 ABG O2 Saturation 94.0 % (90-100) 10/11/21 05:00 ABG Base Excess 8.8 mmol/L (-2.0-2.0) H 10/11/21 05:00 Jason Test Pos 10/11/21 05:00 A-a Gradient 35.0 mmHg 10/11/21 05:00 FiO2 21.0 10/11/21 05:00 Blood Gas Comments Amy well sw 10/11/21 05:00 Sodium 139 mmol/L (136-145) 10/12/21 08:30 Corrected Sodium 142 mmol/L (136-145) 10/12/21 08:30 Potassium 4.2 mmol/L (3.5-5.1) 10/12/21 08:30 Chloride 102 mmol/L (98-107) 10/12/21 08:30 Carbon Dioxide 30.3 mmol/L (21-32) 10/12/21 08:30 BUN 22 mg/dL (7-18) H 10/12/21 08:30 Creatinine 1.55 mg/dL (0.55-1.02) H 10/12/21 08:30 Est GFR (MDRD) Af Amer 43 (>60) L 10/12/21 08:30 Est GFR (MDRD) Non-Af 36 (>60) L 10/12/21 08:30 Glucose 214 mg/dL (65-99) H 10/12/21 08:30 POC Glucose (mg/dL) 217 mg/dL (65-99) H 10/12/21 11:53 Calcium 8.5 mg/dL (8.5-10.1) 10/12/21 08:30 Corrected Calcium 9.8 mg/dL (8.5-10.1) 10/12/21 08:30 Total Bilirubin 0.20 mg/dL (0.2-1.0) 10/12/21 08:30 AST 21 Units/L (15-37) 10/12/21 08:30 ALT 12 Units/L (12-78) 10/12/21 08:30 Alkaline Phosphatase 129 Units/L (46-116) H 10/12/21 08:30 Creatine Kinase 103 Units/L (26-192) 10/12/21 08:30 CK-MB (CK-2) < 1.0 ng/mL (0-4.0) 10/12/21 08:30 CK/CKMB % Calc 1.0 % (<4) 10/12/21 08:30 Troponin I High Sens 41.8 ng/L (4.0-60.0) 10/12/21 08:30 B-Natriuretic Peptide 291 pg/mL (0-79) H 10/10/21 07:20 Total Protein 6.6 g/dL (6.4-8.2) 10/12/21 08:30 Albumin 2.4 g/dL (3.4-5.0) L 10/12/21 08:30 Globulin 4.2 g/dL (2.5-4.5) 10/12/21 08:30 Albumin/Globulin Ratio 0.6 Ratio (1.1-2.1) L 10/12/21 08:30 SARS-CoV-2 (PCR) Negative (NEGATIVE) 10/10/21 09:07 Influenza Type A (PCR) Negative (NEGATIVE) 10/10/21 09:07 Influenza Type B (PCR) Negative (NEGATIVE) 10/10/21 09:07 RSV (PCR) Negative (NEGATIVE) 10/10/21 09:07 - Plan (1) Acute dyspnea Status: Acute Plan: Secondary to CHF. (2) Hypertensive urgency Status: Acute Plan: BP control, monitor, resume home meds (3) CHF (congestive heart failure) Status: Acute Qualifiers: Heart failure type: combined systolic and diastolic Heart failure chronicity: acute on chronic Qualified Code(s): I50.43 - Acute on chronic combined systolic (congestive) and diastolic (congestive) heart failure Plan: IV lasix. Repeat labs and CXR in am. Serial cardiacs and EKGs. Tele. Verify home meds (4) Elevated troponin Status: Acute Plan: Trend. Patient denies CP.
[2021-10-12] MEDS: COLACE CAP 100 MG PO SCH (20:31)
[2021-10-12] MEDS: SNACK - Diabetic Appropriate PO SCH (20:31)
[2021-10-13] MEDS: APRESOLINE TAB 25 MG PO SCH ×2 (05:01→13:46)
[2021-10-13 06:07] LABS: BASOPHILS # (AUTO) 0.1 X10^3/uL (0.0-0.1); BASOPHILS % (AUTO) 1.3 % (0.2-1.0); EOSINOPHILS # (AUTO) 0.1 x10^3/uL (0.0-0.2); EOSINOPHILS % (AUTO) 1.6 % (0.9-2.9); HEMATOCRIT 33.9 % (36.0-47.0); HEMOGLOBIN 11.1 g/dL (12.0-16.0); LYMPHOCYTES # (AUTO) 2.5 X10^3/uL (1.3-2.9); LYMPHOCYTES % (AUTO) 40.3 % (21.0-51.0); MEAN CORPUSCULAR HEMOGLOBIN 25.8 pg (27.0-34.0); MEAN CORPUSCULAR HGB CONC 32.7 g/dL (33.0-35.0); MEAN CORPUSCULAR VOLUME 78.8 fL (80.0-100.0); MEAN PLATELET VOLUME 9.1 fL (7.4-11.0); MONOCYTES # (AUTO) 0.4 x10^3/uL (0.3-0.8); MONOCYTES % (AUTO) 6.9 % (0.0-13.0); NEUTROPHILS # (AUTO) 3.1 x10^3/uL (2.2-4.8); NEUTROPHILS % (AUTO) 49.9 % (42.0-75.0); PLATELET COUNT 244 X10^3/uL (150.0-450.0); RED CELL DISTRIBUTION WIDTH 16.1 % (11.6-16.5); WHITE BLOOD COUNT 6.3 X10^3/uL (3.6-10.0)
[2021-10-13 06:20] LABS: ALBUMIN 2.5 g/dL (3.4-5.0); CALCIUM 8.7 mg/dL (8.5-10.1); CARBON DIOXIDE 30.3 mmol/L (21-32); COR CA(FOR HYPOALB) 9.9 mg/dL (8.5-10.1); CREATININE 1.62 mg/dL (0.55-1.02); TOTAL PROTEIN 6.7 g/dL (6.4-8.2)
[2021-10-13] MEDS: MICRO K EXTEN CAP 10 MEQ PO SCH (08:36)
[2021-10-13] MEDS: LOVENOX INJ 40 MG SYR SC SCH (08:36)
[2021-10-13] MEDS: PROCARDIA XL 24-hr PO SCH (08:37)
[2021-10-13] MEDS: LASIX IVP SCH (08:37)
[2021-10-13] MEDS: PROTONIX TAB 40 MG PO SCH (08:37)
[2021-10-13] MEDS: HumuLIN 70/30 (NovoLIN 70/30) SC SCH (08:38)
[2021-10-13] MEDS: ULTRAM PO PRN (08:47)
[2021-10-13] MEDS: COMBIGAN EYE DROPS OP SCH (08:51)
[2021-10-13] MEDS: FLONASE NASAL SPRAY ENOSTRIL SCH (08:51)
[2021-10-13] MEDS: MILK OF MAGNESIA PO SCH (08:52)
[2021-10-13 18:08] VITALS: BP 194/86
== END 2021-10-13 17:25 | disposition home or self-care (01) ==
LOC: MED/SURG 06:29 → ER 06:29 → MED/SURG 11:51
PROVIDERS: ADMIT Internal Medicine; ATTEND Internal Medicine
DX: E11.65 Type 2 diabetes mellitus with hyperglycemia; Z20.822 Contact with and (suspected) exposure to COVID-19; I11.0 Hypertensive heart disease with heart failure; I50.43 Acute on chronic combined systolic (congestive) and diastolic (congestive) heart failure; I48.91 Unspecified atrial fibrillation; R26.89 Other abnormalities of gait and mobility; R94.31 Abnormal electrocardiogram [ECG] [EKG]; I16.0 Hypertensive urgency; R06.02 Shortness of breath

== ENCOUNTER 2022-01-04 21:26 | Observation (INO) ==
[2022-01-04] MEDS ORDERED: XOPENEX 1.25 MG/3 ML NEBULE NEB ONE ×2 (21:39→22:44)
[2022-01-04 21:44] VITALS: BMI 34.3
--- NOTE | 2022-01-04 21:47 | DR.SOBA ---
HPI Time Seen Time Seen by Provider: 01/04/22 21:36 HPI Comment HPI Comment: Pt with hx chf and afib now with worsening sob over the past two to three days with cough and congestion; no fever, chills, abd pain, n/v/d; denies copd and asthma but does use home oxygen and has an inhaler PMH PMH Past Medical History: Angina, Arthritis, CHF, Diabetes and Hypertension Past Surgical History: Yes Surgical History: Cholecystectomy and Other Family History Family Medical History: Diabetes Mellitus, Cancer and [place] Social History Do you use any recreational Drugs:: No ROS Review of Systems Constitutional: No Symptoms Reported Eyes: No Symptoms Reported ENTM: No Symptoms Reported Respiratoy: See HPI Cardiovascular: No Symptoms Reported Gastrointestinal/Abdominal: No Symptoms Reported Genitourinary: No Symptoms Reported Neurological: No Symptoms Reported Musculoskeletal: No Symptoms Reported Integumentary: No Symptoms Reported Hematologic/Lymphatic: No Symptoms Reported Endocrine: No Symptoms Reported Psychiatric: No Symptoms Reported All Other Systems: Reviewed and Negative PE Vital Signs Vitals: Temperature 98.2 F Pulse Rate 124 Respiratory Rate 32 Blood Pressure [Right Arm] 198/88 Blood Pressure [Left Arm] 150/80 Blood Pressure 189/86 O2 Sat by Pulse Oximetry 96 General Limitations: No Limitations General Appearance: Alert and In No Apparent Distress Head Head Exam: Normal Inspection Eyes Eye exam: Normal Appearance ENT ENT Exam: Normal Exam Neck Neck Exam: Normal Inspection Chest Chest Inspection: Normal Inspection and Symmetric Chest Wall Rise Respiratory Respiratory Exam: Normal Lung Sounds Bilat and Accessory Muscle Use Respiratory Exam: Bilateral: Clear to Auscultation Cardiovascular Cardiovascular Exam: Regular Rate and Normal Rhythm Abdominal Exam Abdominal Exam: Normal Inspection, Normal Bowel Sounds and Soft Extremities Extremities Exam: Normal Inspection Back Back Exam: Normal Inspection Neurologic Neurological Exam: Alert and Oriented X3 Psychiatric Psychiatric Exam: Normal Affect and Normal Mood Skin Skin Exam: Warm, Dry, Intact and Normal Color COURSE Reevaluation 1st: Unchanged Consultation Call Returned: 23:28 (Dr Lance accepts admission.) ROR Labs Reviewed Result Diagrams: 01/04/22 21:50 01/04/22 21:50 Laboratory: WBC 6.8 X10^3/uL (3.6-10.0) 01/04/22 21:50 RBC 4.46 X10^6/uL (3.5-5.4) 01/04/22 21:50 Hgb 11.6 g/dL (12.0-16.0) L 01/04/22 21:50 Hct 35.0 % (36.0-47.0) L 01/04/22 21:50 MCV 78.6 fL (80.0-100.0) L 01/04/22 21:50 MCH 26.0 pg (27.0-34.0) L 01/04/22 21:50 MCHC 33.1 g/dL (33.0-35.0) 01/04/22 21:50 RDW 15.2 % (11.6-16.5) 01/04/22 21:50 Plt Count 254 X10^3/uL (150.0-450.0) 01/04/22 21:50 MPV 9.0 fL (7.4-11.0) 01/04/22 21:50 Neut % (Auto) 61.6 % (42.0-75.0) 01/04/22 21:50 Lymph % (Auto) 29.6 % (21.0-51.0) 01/04/22 21:50 [place] % (Auto) 5.8 % (0.0-13.0) 01/04/22 21:50 Eos % (Auto) 1.6 % (0.9-2.9) 01/04/22 21:50 Baso % (Auto) 1.4 % (0.2-1.0) H 01/04/22 21:50 Neut # (Auto) 4.2 x10^3/uL (2.2-4.8) 01/04/22 21:50 Lymph # (Auto) 2.0 X10^3/uL (1.3-2.9) 01/04/22 21:50 [place] # (Auto) 0.4 x10^3/uL (0.3-0.8) 01/04/22 21:50 Eos # (Auto) 0.1 x10^3/uL (0.0-0.2) 01/04/22 21:50 Baso # (Auto) 0.1 X10^3/uL (0.0-0.1) 01/04/22 21:50 Absolute Nucleated RBC 0.0 /100WBC 01/04/22 21:50 D-Dimer 5.65 ug/ml (0.0-0.57) H* 01/04/22 21:50 Sample Site [place]rad 01/04/22 23:00 ABG pH 7.440 (7.35-7.45) 01/04/22 23:00 ABG pCO2 44.0 mmHg (35.0-45.0) 01/04/22 23:00 ABG pO2 73.0 mmHg (80.0-100.0) L 01/04/22 23:00 ABG HCO3 29.9 mmol/L (22-26) H 01/04/22 23:00 ABG O2 Saturation 95.0 % (90-100) 01/04/22 23:00 ABG Base Excess 5.1 mmol/L (-2.0-2.0) H 01/04/22 23:00 Jason Test Pos 01/04/22 23:00 A-a Gradient 129.0 mmHg 01/04/22 23:00 FiO2 36.0 01/04/22 23:00 Blood Gas Comments Amy well ms 01/04/22 23:00 Sodium 134 mmol/L (136-145) L 01/04/22 21:50 Corrected Sodium 141 mmol/L (136-145) 01/04/22 21:50 Potassium 3.8 mmol/L (3.5-5.1) 01/04/22 21:50 Chloride 97 mmol/L (98-107) L 01/04/22 21:50 Carbon Dioxide 27.5 mmol/L (21-32) 01/04/22 21:50 BUN 18 mg/dL (7-18) 01/04/22 21:50 Creatinine 1.29 mg/dL (0.55-1.02) H 01/04/22 21:50 Est GFR (MDRD) Af Amer 53 (>60) L 01/04/22 21:50 Est GFR (MDRD) Non-Af 44 (>60) L 01/04/22 21:50 Glucose 378 mg/dL (65-99) H 01/04/22 21:50 Calcium 8.8 mg/dL (8.5-10.1) 01/04/22 21:50 Corrected Calcium 9.7 mg/dL (8.5-10.1) 01/04/22 21:50 Total Bilirubin 0.90 mg/dL (0.2-1.0) 01/04/22 21:50 AST 53 Units/L (15-37) H 01/04/22 21:50 ALT 27 Units/L (12-78) 01/04/22 21:50 Alkaline Phosphatase 251 Units/L (46-116) H 01/04/22 21:50 Creatine Kinase 123 Units/L (26-192) 01/04/22 21:50 CK-MB (CK-2) 1.4 ng/mL (0-4.0) 01/04/22 21:50 CK/CKMB % Calc 1.1 % (<4) 01/04/22 21:50 Troponin I High Sens 59.7 ng/L (4.0-60.0) 01/04/22 21:50 B-Natriuretic Peptide 436 pg/mL (0-79) H 01/04/22 21:50 Total Protein 7.3 g/dL (6.4-8.2) 01/04/22 21:50 Albumin 2.9 g/dL (3.4-5.0) L 01/04/22 21:50 Globulin 4.4 g/dL (2.5-4.5) 01/04/22 21:50 Albumin/Globulin Ratio 0.7 Ratio (1.1-2.1) L 01/04/22 21:50 SARS CoV-2 RNA Rapid WILLIAM Negative (NEGATIVE) 01/04/22 21:48 XRAY XRAY Interpreted by: Radiologist X-ray Results: ct chest w/o: Moderate-sized bilateral pleural effusions right greater than left with mild pulmonary vascular congestion with early interstitial edema. Compressive atelectasis within the lung bases is. Atelectasis also present within the right middle lobe. Is cxr: 1. Findings consistent with mild CHF or volume overload in the appropriate clinical setting (with mild interval progression of congestive infiltrates compared with the previous exam); DDX includes (but is not limited to) mild bronchitis and interstitial pneumonia in the appropriate clinical setting. 2. Again evidence for a small to moderate right pleural effusion with right basilar compressive atelectasis and/or pneumonic infiltrate in the appropriate clinical setting. 3. Recommend clinical correlation and appropriate follow-up CXR evaluation to ensure interval clearance as clinically warranted. 4. Consider follow-up noncontrast chest CT for further characterization as clinically warranted. Opioid Opioid Risk Tool Age ([place] box if 16-45): No History of Preadolescent Sexual Abuse: No Total: 0 Total Score Risk Category: Low Risk Copyright: Israel MCBRIDE predicting aberrant behaviors Diagnosis Discharge Problem: Hypoxia, Bilateral pleural effusion CHF (congestive heart failure) Qualifiers: Heart failure type: systolic Heart failure chronicity: acute on chronic Qualified Code(s): I50.23 - Acute on chronic systolic (congestive) heart failure Atrial fibrillation Qualifiers: Atrial fibrillation type: permanent Qualified Code(s): I48.21 - Permanent atrial fibrillation Instructions Instructions: Heart Failure, Diagnosis, [id number] Forms: Precautions for COVID19 [facility] Social Distancing
[2022-01-04 22:03] LABS: BASOPHILS # (AUTO) 0.1 X10^3/uL (0.0-0.1); BASOPHILS % (AUTO) 1.4 % (0.2-1.0); EOSINOPHILS # (AUTO) 0.1 x10^3/uL (0.0-0.2); EOSINOPHILS % (AUTO) 1.6 % (0.9-2.9); HEMOGLOBIN 11.6 g/dL (12.0-16.0); LYMPHOCYTES % (AUTO) 29.6 % (21.0-51.0); MEAN CORPUSCULAR HGB CONC 33.1 g/dL (33.0-35.0); MEAN CORPUSCULAR VOLUME 78.6 fL (80.0-100.0); MONOCYTES # (AUTO) 0.4 x10^3/uL (0.3-0.8); MONOCYTES % (AUTO) 5.8 % (0.0-13.0); NEUTROPHILS # (AUTO) 4.2 x10^3/uL (2.2-4.8); NEUTROPHILS % (AUTO) 61.6 % (42.0-75.0); RED BLOOD COUNT 4.46 X10^6/uL (3.5-5.4); RED CELL DISTRIBUTION WIDTH 15.2 % (11.6-16.5); WHITE BLOOD COUNT 6.8 X10^3/uL (3.6-10.0)
[2022-01-04 22:24] LABS: ALBUMIN 2.9 g/dL (3.4-5.0); CALCIUM 8.8 mg/dL (8.5-10.1); CARBON DIOXIDE 27.5 mmol/L (21-32); CKMB % 1.1 % (<4); COR CA(FOR HYPOALB) 9.7 mg/dL (8.5-10.1); CREATINE KINASE MB 1.4 ng/mL (0-4.0); CREATININE 1.29 mg/dL (0.55-1.02); TOTAL PROTEIN 7.3 g/dL (6.4-8.2)
--- NOTE | 2022-01-04 22:24 | RAD ---
EXAM: CHEST X-RAYHISTORY: Worsening shortness of breath.TECHNIQUE: AP CXR dated January 04, 2022 at 10:02 PM.COMPARISON: CXR dated December 01, 2021.FINDINGS:There is evidence for cardiomegaly. The pulmonary vascularity and interstitial markings are diffusely prominent, consistent with mild CHF or volume overload in the appropriate clinical setting; differential diagnosis includes (but is not limited to) mild bronchitis and interstitial pneumonia in the appropriate clinical setting.There is again evidence for a small to moderate right pleural effusion with right basilar compressive atelectasis and/or pneumonic infiltrate in the appropriate clinical setting. There is no pneumothorax seen. The visualized bony structures are within normal limits.IMPRESSION:1. Findings consistent with mild CHF or volume overload in the appropriate clinical setting (with mild interval progression of congestive infiltrates compared with the previous exam); DDX includes (but is not limited to) mild bronchitis and interstitial pneumonia in the appropriate clinical setting.2. Again evidence for a small to moderate right pleural effusion with right basilar compressive atelectasis and/or pneumonic infiltrate in the appropriate clinical setting.3. Recommend clinical correlation and appropriate follow-up CXR evaluation to ensure interval clearance as clinically warranted.4. Consider follow-up noncontrast chest CT for further characterization as clinically warranted.Electronically signed by: Tameka Doe (Jan 04, 2022 22:23:26)
[2022-01-04 23:06] LABS: ABG ALLEN TEST POS; ABG BASE EXCESS 5.1 mmol/L (-2.0-2.0); ABG HCO3 29.9 mmol/L (22-26)
--- NOTE | 2022-01-04 23:07 | CT ---
HISTORYpt c/o SOB THAT STARTED YESTERDAY BUT GOT WORSE TONIGHTSTUDYCHEST W/O [id number] axial images of the chest were obtained from the thoracic inlet to the upper abdomen without the administration of IV contrast. Dose reduction techniques including Automated Exposure Control (AEC) and adjustment of mA and kV were utilized.FINDINGSThe mediastinum does not demonstrate significant pathological lymphadenopathy. There is no paracardial effusion observed. The thoracic aorta is normal in its contour without evidence for aneurysmal dilatation.Evaluation of the lung parenchyma demonstrates moderate-sized bilateral pleural effusions right greater than left. Mild pulmonary vascular congestion with early interstitial edema. Compressive atelectasis within the lung bases. There is also atelectasis within the right middle lobe. No pneumothorax.. No pulmonary nodule or mass can be identified. The bony thorax is unremarkable in its appearance . The visualized portions of the upper abdomen are grossly unremarkable .IMPRESSIONModerate-sized bilateral pleural effusions right greater than left with mild pulmonary vascular congestion with early interstitial edema.Compressive atelectasis within the lung bases is. Atelectasis also present within the right middle lobe. IsElectronically signed by: Martin Lewis (Jan 04, 2022 23:07:01)
[2022-01-04] MEDS ORDERED: LASIX IVP STA (23:12)
[2022-01-04] MEDS ORDERED: LASIX IVP ONE (23:14)
[2022-01-04] MEDS ORDERED: TESSALON PERLES PO PRN (23:43)
[2022-01-04] MEDS ORDERED: ZOFRAN INJ 4 MG VIAL IVP PRN (23:43)
[2022-01-05] MEDS ORDERED: APRESOLINE INJ 20 MG VIAL IVP ONE (00:27)
[2022-01-05] MEDS ORDERED: APRESOLINE INJ 20 MG VIAL ONE (00:32)
[2022-01-05 05:44] LABS: BASOPHILS % (AUTO) 0.6 % (0.2-1.0); EOSINOPHILS % (AUTO) 0.6 % (0.9-2.9); HEMATOCRIT 34.6 % (36.0-47.0); HEMOGLOBIN 11.6 g/dL (12.0-16.0); LYMPHOCYTES # (AUTO) 1.5 X10^3/uL (1.3-2.9); LYMPHOCYTES % (AUTO) 20.7 % (21.0-51.0); MEAN CORPUSCULAR HEMOGLOBIN 26.1 pg (27.0-34.0); MEAN CORPUSCULAR HGB CONC 33.5 g/dL (33.0-35.0); MEAN CORPUSCULAR VOLUME 77.9 fL (80.0-100.0); MEAN PLATELET VOLUME 9.2 fL (7.4-11.0); MONOCYTES # (AUTO) 0.4 x10^3/uL (0.3-0.8); NEUTROPHILS # (AUTO) 5.2 x10^3/uL (2.2-4.8); NEUTROPHILS % (AUTO) 72.1 % (42.0-75.0); RED BLOOD COUNT 4.44 X10^6/uL (3.5-5.4); RED CELL DISTRIBUTION WIDTH 14.9 % (11.6-16.5); WHITE BLOOD COUNT 7.2 X10^3/uL (3.6-10.0)
[2022-01-05 05:46] LABS: CALCIUM 9.1 mg/dL (8.5-10.1); CARBON DIOXIDE 27.5 mmol/L (21-32); COR CA(FOR HYPOALB) 9.9 mg/dL (8.5-10.1); CREATININE 1.43 mg/dL (0.55-1.02); TOTAL PROTEIN 7.5 g/dL (6.4-8.2)
[2022-01-05] MEDS: NovoLIN R (or HumuLIN R) SUBCUT PRN (06:15)
[2022-01-05] MEDS: MICRO K EXTEN CAP 10 MEQ PO SCH ×2 (09:06→20:37)
[2022-01-05] MEDS: PROCARDIA XL PO SCH ×2 (09:06→20:37)
[2022-01-05] MEDS: APRESOLINE TAB 10 MG PO SCH ×3 (09:06→21:05)
[2022-01-05] MEDS: MILK OF MAGNESIA PO SCH (09:06)
[2022-01-05] MEDS: FLONASE NASAL SPRAY ENOSTRIL SCH (09:07)
[2022-01-05] MEDS: COMBIGAN EYE DROPS EACHEYE SCH ×2 (09:08→23:56)
[2022-01-05] MEDS: PROTONIX INJ 40 MG VIAL IVP SCH ×2 (09:08→20:55)
[2022-01-05] MEDS: ULTRAM PO PRN ×2 (12:12→20:38)
[2022-01-05] MEDS ORDERED: HumuLIN 70/30 (NovoLIN 70/30) SC SCH (17:00)
[2022-01-05] MEDS ORDERED: SNACK - Diabetic Appropriate PO SCH (20:00)
[2022-01-05] MEDS: COLACE CAP 100 MG PO SCH (20:37)
[2022-01-05] MEDS: LASIX IVP SCH (20:50)
[2022-01-05] MEDS: SNACK - Diabetic Appropriate PO SCH (20:55)
--- NOTE | 2022-01-06 01:54 | DR.H&P ---
H&P - History & Physical for Day of: H&P Date: 01/04/22 - Chief Complaint Chief Complaint: Dyspnea - History of Present Illness History of Present Illness: Patient is a 66 year old AAF who is being admitted due to CHF exacerbation and dyspnea. Patient states she has been going into CHF monthly over the past several months and has to hospitalized. Patient states she became SOB over the past 24 hours which has progressively gotten worse. Denies swelling to upper and lower extremities but does report she becomes edematous to her thighs. Denies CP, changes in bowel bladder or appetite. No other concerns at present. PMH CHF HTN, HLD, obesity, DM. 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, Other - Family History Family Medical History: Diabetes Mellitus, Cancer, [place] - Social History Does patient currently use any type of tobacco product: No How many years tobacco product used: 5 Does any household member use tobacco: No Alcohol Use: None Drug Use: None - Medications Home Medications: GISEL Inhibitors Allergy (Verified 12/01/21 11:35) clonidine Allergy (Verified 12/01/21 11:30) codeine Allergy (Verified 12/01/21 11:30) hydrocodone Allergy (Verified 12/01/21 11:30) insulin detemir [From Levemir] Allergy (Verified 12/01/21 11:30) Iodinated Contrast Media Allergy (Verified 12/01/21 11:30) iodine Allergy (Verified 12/01/21 11:30) ketorolac [From Toradol] Allergy (Verified 12/01/21 11:30) olmesartan [From Benicar] Allergy (Verified 12/01/21 11:30) Pork/Porcine Containing Products Allergy (Verified 01/05/22 09:13) insulin glargine [From Lantus] Adverse Reaction (Verified 12/01/21 11:30) BETA-BLOCKERS Allergy (Uncoded 12/01/21 11:30) - Review of Systems Constitutional: See HPI Eyes: See HPI ENT: See HPI Respiratory: See HPI Cardiovascular: See HPI Gastrointestinal: See HPI Genitourinary: See HPI Musculoskeletal: See HPI Skin: See HPI Neurological: See HPI - Physical Exam Vital Signs: Temperature 99.1 F Pulse Rate [Left Brachial] 98 Pulse Rate 84 Respiratory Rate 20 Blood Pressure [Right Arm] 211/86 Blood Pressure [Left Arm] 189/86 Blood Pressure 207/91 O2 Sat by Pulse Oximetry 100 Oriented: Normal, Time, Person, Place Eyes: Normal Ear: Normal Nose: Normal Throat: Normal Respiratory: Diminished Throughout, RLL Diminished, LLL Diminished Cardiovascular: Normal : Normal Auscultation: Bowel Sounds: Normal Palpation: Normal Tenderness: Normal Skin: Normal Musculoskeletal: Back:Lumbar, Tender Psychiatric: Normal Mood Description: Calm Affect: Normal Speech Pattern: Clear, Appropriate - Assessment/Plan (1) Acute dyspnea Status: Acute Plan: Admit. Verify home meds and resume. Lasix IV. SL. Repeat labs and CXR in am. (2) CHF (congestive heart failure) Qualifiers: Heart failure type: combined systolic and diastolic Heart failure chronicity: acute on chronic Qualified Code(s): I50.43 - Acute on chronic combined systolic (congestive) and diastolic (congestive) heart failure Status: Acute (3) Hypertension Status: Chronic (4) Bilateral pleural effusion Status: Acute (5) Diabetes Status: Chronic - Allergies Allergies/Adverse Reactions: Allergies Allergy/AdvReac Type Severity Reaction Status Date / Time GISEL Inhibitors Allergy Verified 12/01/21 11:35 clonidine Allergy Verified 12/01/21 11:30 codeine Allergy Verified 12/01/21 11:30 hydrocodone Allergy Verified 12/01/21 11:30 insulin detemir Allergy Verified 12/01/21 11:30 [From Levemir] Iodinated Contrast Media Allergy Verified 12/01/21 11:30 iodine Allergy Verified 12/01/21 11:30 ketorolac [From Toradol] Allergy Verified 12/01/21 11:30 olmesartan [From Benicar] Allergy Verified 12/01/21 11:30 Pork/Porcine Containing Allergy Verified 01/05/22 09:13 Products insulin glargine AdvReac Verified 12/01/21 11:30 [From Lantus] BETA-BLOCKERS Allergy Uncoded 12/01/21 11:30
[2022-01-06] MEDS ORDERED: ULTRAM PO PRN (01:57)
--- NOTE | 2022-01-06 01:57 | PCM.PROG ---
Progress Note - Progress Note for Day of Date of Exam: 01/05/22 - Subjective Subjective: Patient is a 66 year old AAF who was admitted as per HPI. Patient reports improvement in dyspnea however she continues to experience it. Reports dyspnea with exertion as well. No other changes or concerns - Past Medical Family Social History Past Med/Fam/Surg Hx: No changes since H&P Allergies: Allergies GISEL Inhibitors Allergy (Verified 12/01/21 11:35) clonidine Allergy (Verified 12/01/21 11:30) codeine Allergy (Verified 12/01/21 11:30) hydrocodone Allergy (Verified 12/01/21 11:30) insulin detemir [From Levemir] Allergy (Verified 12/01/21 11:30) Iodinated Contrast Media Allergy (Verified 12/01/21 11:30) iodine Allergy (Verified 12/01/21 11:30) ketorolac [From Toradol] Allergy (Verified 12/01/21 11:30) olmesartan [From Benicar] Allergy (Verified 12/01/21 11:30) Pork/Porcine Containing Products Allergy (Verified 01/05/22 09:13) insulin glargine [From Lantus] Adverse Reaction (Verified 12/01/21 11:30) BETA-BLOCKERS Allergy (Uncoded 12/01/21 11:30) - Review of Systems ROS: No change since H&P - Vital Signs and I&O's Vital Signs: Temperature 99.1 F Pulse Rate [Left Brachial] 98 Pulse Rate 84 Respiratory Rate 20 Blood Pressure [Right Arm] 211/86 Blood Pressure [Left Arm] 189/86 Blood Pressure 207/91 O2 Sat by Pulse Oximetry 100 Intake and Output: Intake & Output 01/03/22 01/04/22 01/05/22 01/06/22 23:59 23:59 23:59 23:59 Intake Total 615 / 615 480 / 480 Output Total Balance 612 / 612 480 / 480 - Physical Exam Oriented: Normal, Time, Person, Place Eyes: Normal Ear: Normal Nose: Normal Throat: Normal Cardiovascular: Normal : Normal Auscultation: Bowel Sounds: Normal Tenderness: Normal Skin: Normal Musculoskeletal: Back:Lumbar, Tender Psychiatric: Normal Mood Description: Calm Affect: Normal Speech Pattern: Clear, Appropriate - Laboratory and Diagnostics Result Diagrams: 01/05/22 04:40 01/05/22 04:40 Labs: Laboratory WBC 7.2 X10^3/uL (3.6-10.0) 01/05/22 04:40 RBC 4.44 X10^6/uL (3.5-5.4) 01/05/22 04:40 Hgb 11.6 g/dL (12.0-16.0) L 01/05/22 04:40 Hct 34.6 % (36.0-47.0) L 01/05/22 04:40 MCV 77.9 fL (80.0-100.0) L 01/05/22 04:40 MCH 26.1 pg (27.0-34.0) L 01/05/22 04:40 MCHC 33.5 g/dL (33.0-35.0) 01/05/22 04:40 RDW 14.9 % (11.6-16.5) 01/05/22 04:40 Plt Count 270 X10^3/uL (150.0-450.0) 01/05/22 04:40 MPV 9.2 fL (7.4-11.0) 01/05/22 04:40 Neut % (Auto) 72.1 % (42.0-75.0) 01/05/22 04:40 Lymph % (Auto) 20.7 % (21.0-51.0) L 01/05/22 04:40 [place] % (Auto) 6.0 % (0.0-13.0) 01/05/22 04:40 Eos % (Auto) 0.6 % (0.9-2.9) L 01/05/22 04:40 Baso % (Auto) 0.6 % (0.2-1.0) 01/05/22 04:40 Neut # (Auto) 5.2 x10^3/uL (2.2-4.8) H 01/05/22 04:40 Lymph # (Auto) 1.5 X10^3/uL (1.3-2.9) 01/05/22 04:40 [place] # (Auto) 0.4 x10^3/uL (0.3-0.8) 01/05/22 04:40 Eos # (Auto) 0.0 x10^3/uL (0.0-0.2) 01/05/22 04:40 Baso # (Auto) 0.0 X10^3/uL (0.0-0.1) 01/05/22 04:40 Absolute Nucleated RBC 0.0 /100WBC 01/05/22 04:40 D-Dimer 5.65 ug/ml (0.0-0.57) H* 01/04/22 21:50 Sample Site Lrad 01/04/22 23:00 ABG pH 7.440 (7.35-7.45) 01/04/22 23:00 ABG pCO2 44.0 mmHg (35.0-45.0) 01/04/22 23:00 ABG pO2 73.0 mmHg (80.0-100.0) L 01/04/22 23:00 ABG HCO3 29.9 mmol/L (22-26) H 01/04/22 23:00 ABG O2 Saturation 95.0 % (90-100) 01/04/22 23:00 ABG Base Excess 5.1 mmol/L (-2.0-2.0) H 01/04/22 23:00 Jason Test Pos 01/04/22 23:00 A-a Gradient 129.0 mmHg 01/04/22 23:00 FiO2 36.0 01/04/22 23:00 Blood Gas Comments Amy well ms 01/04/22 23:00 Sodium 135 mmol/L (136-145) L 01/05/22 04:40 Corrected Sodium 142 mmol/L (136-145) 01/05/22 04:40 Potassium 3.7 mmol/L (3.5-5.1) 01/05/22 04:40 Chloride 97 mmol/L (98-107) L 01/05/22 04:40 Carbon Dioxide 27.5 mmol/L (21-32) 01/05/22 04:40 BUN 19 mg/dL (7-18) H 01/05/22 04:40 Creatinine 1.43 mg/dL (0.55-1.02) H 01/05/22 04:40 Est GFR (MDRD) Af Amer 47 (>60) L 01/05/22 04:40 Est GFR (MDRD) Non-Af 39 (>60) L 01/05/22 04:40 Glucose 400 mg/dL (65-99) H 01/05/22 04:40 POC Glucose (mg/dL) 259 mg/dL (65-99) H 01/05/22 22:18 Calcium 9.1 mg/dL (8.5-10.1) 01/05/22 04:40 Corrected Calcium 9.9 mg/dL (8.5-10.1) 01/05/22 04:40 Total Bilirubin 0.80 mg/dL (0.2-1.0) 01/05/22 04:40 AST 35 Units/L (15-37) 01/05/22 04:40 ALT 27 Units/L (12-78) 01/05/22 04:40 Alkaline Phosphatase 256 Units/L (46-116) H 01/05/22 04:40 Creatine Kinase 123 Units/L (26-192) 01/04/22 21:50 CK-MB (CK-2) 1.4 ng/mL (0-4.0) 01/04/22 21:50 CK/CKMB % Calc 1.1 % (<4) 01/04/22 21:50 Troponin I High Sens 59.7 ng/L (4.0-60.0) 01/04/22 21:50 B-Natriuretic Peptide 436 pg/mL (0-79) H 01/04/22 21:50 Total Protein 7.5 g/dL (6.4-8.2) 01/05/22 04:40 Albumin 3.0 g/dL (3.4-5.0) L 01/05/22 04:40 Globulin 4.5 g/dL (2.5-4.5) 01/05/22 04:40 Albumin/Globulin Ratio 0.7 Ratio (1.1-2.1) L 01/05/22 04:40 SARS CoV-2 RNA Rapid WILLIAM Negative (NEGATIVE) 01/04/22 21:48 - Plan (1) Acute dyspnea Status: Acute Plan: Admit. Verify home meds and resume. Lasix IV. SL. Repeat labs and CXR in am. (2) CHF (congestive heart failure) Status: Acute Qualifiers: Heart failure type: combined systolic and diastolic Heart failure chronicity: acute on chronic Qualified Code(s): I50.43 - Acute on chronic combined systolic (congestive) and diastolic (congestive) heart failure (3) Hypertension Status: Chronic (4) Bilateral pleural effusion Status: Acute (5) Diabetes Status: Chronic
[2022-01-06 05:00] LABS: BASOPHILS # (AUTO) 0.4 X10^3/uL (0.0-0.1); BASOPHILS % (AUTO) 5.2 % (0.2-1.0); EOSINOPHILS # (AUTO) 0.3 x10^3/uL (0.0-0.2); EOSINOPHILS % (AUTO) 3.2 % (0.9-2.9); HEMATOCRIT 33.3 % (36.0-47.0); HEMOGLOBIN 11.2 g/dL (12.0-16.0); LYMPHOCYTES # (AUTO) 1.8 X10^3/uL (1.3-2.9); LYMPHOCYTES % (AUTO) 22.4 % (21.0-51.0); MEAN CORPUSCULAR HGB CONC 33.7 g/dL (33.0-35.0); MEAN CORPUSCULAR VOLUME 77.2 fL (80.0-100.0); MEAN PLATELET VOLUME 8.6 fL (7.4-11.0); MONOCYTES # (AUTO) 0.6 x10^3/uL (0.3-0.8); NEUTROPHILS # (AUTO) 4.9 x10^3/uL (2.2-4.8); NEUTROPHILS % (AUTO) 61.2 % (42.0-75.0); RED BLOOD COUNT 4.32 X10^6/uL (3.5-5.4); RED CELL DISTRIBUTION WIDTH 15.4 % (11.6-16.5)
[2022-01-06 05:10] LABS: ALANINE AMINOTRANSFERASE 22 Units/L (12-78); ALBUMIN 2.9 g/dL (3.4-5.0); ALKALINE PHOSPHATASE 223 Units/L (46-116); ASPARTATE AMINO TRANSFERASE 21 Units/L (15-37); BLOOD UREA NITROGEN 22 mg/dL (7-18); CARBON DIOXIDE 33.2 mmol/L (21-32); CHLORIDE 103 mmol/L (98-107); COR CA(FOR HYPOALB) 9.9 mg/dL (8.5-10.1); CREATININE 1.47 mg/dL (0.55-1.02); SODIUM 141 mmol/L (136-145); TOTAL PROTEIN 7.1 g/dL (6.4-8.2); eGFR NON BLACK RACES 38 (>60)
[2022-01-06] MEDS: APRESOLINE TAB 10 MG PO SCH ×3 (05:32→22:08)
[2022-01-06] MEDS ORDERED: APRESOLINE TAB 10 MG PO SCH (06:00)
[2022-01-06 06:16] LABS: PLATELET MORPHOLOGY COMMENT NORMAL (NORMAL)
[2022-01-06 06:17] LABS: HYPOCHROMASIA SLIGHT
--- NOTE | 2022-01-06 06:42 | RAD ---
HISTORYCHD, PLEURAL EFFUSION HX: CHF, DM SX: GBSTUDYCHEST, 1 [id number]/2022FINDINGSThe trachea is midline. There is mild cardiomegaly. There are small bilateral effusions right more than left. There is persistent bibasal radiopacities, no evidence of pneumothorax.IMPRESSIONOverall no interval change. Small bilateral pleural effusions with bibasal radiopacities.Electronically signed by: Thu Catalan (Jan 06, 2022 06:41:16)
[2022-01-06] MEDS ORDERED: POTASSIUM CHL 60 MEQ/NS 0.45% 500 ML IV PRN (07:05)
[2022-01-06] MEDS ORDERED: K-RIDER 10 MEQ/NS 100 ML 10 MEQ/100 ML BAG IV PRN (07:05)
[2022-01-06] MEDS ORDERED: MICRO K EXTEN CAP 10 MEQ PO PRN (07:05)
[2022-01-06] MEDS ORDERED: POTASSIUM CHL 40 MEQ/NS 0.45% 500 ML IV PRN (07:05)
[2022-01-06] MEDS ORDERED: KLOR-CON PO PRN (07:05)
[2022-01-06] MEDS ORDERED: POTASSIUM CHLORIDE LIQ 20 MEQ UDC PO PRN (07:05)
[2022-01-06] MEDS ORDERED: K-DUR TAB 20 MEQ PO PRN (07:05)
[2022-01-06] MEDS ORDERED: PROTONIX TAB 40 MG PO SCH (09:00)
[2022-01-06] MEDS ORDERED: NIFEDIPINE 90 MG PO SCH (09:00)
[2022-01-06] MEDS ORDERED: HumuLIN 70/30 (NovoLIN 70/30) SC SCH (09:00)
[2022-01-06] MEDS ORDERED: PROCARDIA XL 24-hr PO SCH (09:00)
[2022-01-06] MEDS ORDERED: FLONASE NASAL SPRAY ENOSTRIL SCH (09:00)
[2022-01-06] MEDS ORDERED: MICRO K EXTEN CAP 10 MEQ PO SCH (09:00)
[2022-01-06] MEDS ORDERED: COMBIGAN EYE DROPS OP SCH (09:00)
[2022-01-06] MEDS: COMBIGAN EYE DROPS EACHEYE SCH ×2 (09:35→20:39)
[2022-01-06] MEDS: FLONASE NASAL SPRAY ENOSTRIL SCH (09:35)
[2022-01-06] MEDS: PROTONIX INJ 40 MG VIAL IVP SCH ×2 (09:36→20:38)
[2022-01-06] MEDS: PROCARDIA XL PO SCH ×2 (09:36→20:38)
[2022-01-06] MEDS: MICRO K EXTEN CAP 10 MEQ PO SCH ×2 (09:37→20:37)
[2022-01-06] MEDS: MILK OF MAGNESIA PO SCH (09:37)
[2022-01-06] MEDS: ULTRAM PO PRN (09:53)
--- NOTE | 2022-01-06 10:31 | PCM.PROG ---
Progress Note Progress Note for Day of Date of Exam: 01/06/22 Subjective Subjective: Patient seen at bedside, patient's FSBG dropped to 46 overnight. She said she was sweating, felt confused and shaky. She is doing much better now. Her O2 was weaned down to 2L NC. She reports coughing up sputum. Denies fever or chills. Labs reviewed K:2.9 Cr: 1.47 BNP 230 CXR: small b/l effusions with bibasal opacities ECHO 05/20/21: Grade 3 restrictive DD, EF 61%, mild PH Plan: will add Rocephin and nebs, encouraged to use IS. Continue IV lasix, wean O2 as tolerated. Replace K as per protocol. Monitor UOP and daily weight. Continue home medications. Will DC scheduled insulin, continue SSI. FSBG prior to each meal. Monitor AM labs. Past Medical Family Social History Past Med/Fam/Surg Hx: No changes since H&P Allergies: Allergies GISEL Inhibitors Allergy (Verified 12/01/21 11:35) clonidine Allergy (Verified 12/01/21 11:30) codeine Allergy (Verified 12/01/21 11:30) hydrocodone Allergy (Verified 12/01/21 11:30) insulin detemir [From Levemir] Allergy (Verified 12/01/21 11:30) Iodinated Contrast Media Allergy (Verified 12/01/21 11:30) iodine Allergy (Verified 12/01/21 11:30) ketorolac [From Toradol] Allergy (Verified 12/01/21 11:30) olmesartan [From Benicar] Allergy (Verified 12/01/21 11:30) Pork/Porcine Containing Products Allergy (Verified 01/05/22 09:13) insulin glargine [From Lantus] Adverse Reaction (Verified 12/01/21 11:30) BETA-BLOCKERS Allergy (Uncoded 12/01/21 11:30) Review of Systems ROS: No change since H&P Vital Signs and I&O's Vital Signs: Temperature 97.7 F Pulse Rate [Left Brachial] 87 Pulse Rate 84 Respiratory Rate 18 Blood Pressure [Right Arm] 181/80 Blood Pressure [Left Arm] 189/86 Blood Pressure 207/91 O2 Sat by Pulse Oximetry 99 Intake and Output: Intake & Output 01/03/22 01/04/22 01/05/2222 23:59 23:59 23:59 23:59 Intake Total 615 / 615 980 / 980 Output Total Balance 612 / 612 980 / 980 Physical Exam Oriented: Normal Eyes: Normal Ear: Normal Nose: Normal Throat: Normal Respiratory: Generalized and Diminished Cardiovascular: Normal Auscultation: Bowel Sounds: Normal Tenderness: Normal Skin: Normal Musculoskeletal: Back:Lumbar and Tender Psychiatric: Normal Mood Description: Calm Affect: Normal Speech Pattern: Clear and Appropriate Laboratory and Diagnostics Result Diagrams: 01/06/22 04:23 01/06/22 04:23 Labs: Laboratory WBC 8.0 X10^3/uL (3.6-10.0) 01/06/22 04:23 RBC 4.32 X10^6/uL (3.5-5.4) 01/06/22 04:23 Hgb 11.2 g/dL (12.0-16.0) L 01/06/22 04:23 Hct 33.3 % (36.0-47.0) L 01/06/22 04:23 MCV 77.2 fL (80.0-100.0) L 01/06/22 04:23 MCH 26.0 pg (27.0-34.0) L 01/06/22 04:23 MCHC 33.7 g/dL (33.0-35.0) 01/06/22 04: RDW 15.4 % (11.6-16.5) 01/06/22 04:23 Plt Count 292 X10^3/uL (150.0-450.0) 01/06/22 04:23 Plt Count Comment Adequate (ADEQUATE) 01/06/22 04:23 MPV 8.6 fL (7.4-11.0) 01/06/22 04:23 Neut % (Auto) 61.2 % (42.0-75.0) 01/06/22 04:23 Lymph % (Auto) 22.4 % (21.0-51.0) 01/06/22 04:23 [place] % (Auto) 8.0 % (0.0-13.0) 01/06/22 04:23 Eos % (Auto) 3.2 % (0.9-2.9) H 01/06/22 04:23 Baso % (Auto) 5.2 % (0.2-1.0) H 01/06/22 04:23 Neut # (Auto) 4.9 x10^3/uL (2.2-4.8) H 01/06/22 04:23 Lymph # (Auto) 1.8 X10^3/uL (1.3-2.9) 01/06/22 04:23 [place] # (Auto) 0.6 x10^3/uL (0.3-0.8) 01/06/22 04:23 Eos # (Auto) 0.3 x10^3/uL (0.0-0.2) H 01/06/22 04:23 Baso # (Auto) 0.4 X10^3/uL (0.0-0.1) H 01/06/22 04:23 Absolute Nucleated RBC 0.0 /100WBC 01/06/22 04:23 Total Counted 100 01/06/22 04:23 Neutrophils % (Manual) 60 % (39-76) 01/06/22 04:23 Lymphocytes % (Manual) 30 % (13-43) 01/06/22 04:23 Monocytes % (Manual) 7 % (4-9) 01/06/22 04:23 Eosinophils % (Manual) 3 % (0-6) 01/06/22 04:23 Plt Morphology Comment Normal (NORMAL) 01/06/22 04:23 RBC Morphology Abnormal (NORMAL) A 01/06/22 04:23 Hypochromasia Slight A 01/06/22 04:23 D-Dimer 5.65 ug/ml (0.0-0.57) H* 01/04/22 21:50 Sample Site Lrad 01/04/22 23:00 ABG pH 7.440 (7.35-7.45) 01/04/22 23:00 ABG pCO2 44.0 mmHg (35.0-45.0) 01/04/22 23:00 ABG pO2 73.0 mmHg (80.0-100.0) L 01/04/22 23:00 ABG HCO3 29.9 mmol/L (22-26) H 01/04/22 23:00 ABG O2 Saturation 95.0 % (90-100) 01/04/22 23:00 ABG Base Excess 5.1 mmol/L (-2.0-2.0) H 01/04/22 23:00 Jason Test Pos 01/04/22 23:00 A-a Gradient 129.0 mmHg 01/04/22 23:00 FiO2 36.0 01/04/22 23:00 Blood Gas Comments Amy well ms 01/04/22 23:00 Sodium 141 mmol/L (136-145) 01/06/22 04:23 Corrected Sodium TNP 01/06/22 04:23 Potassium 2.9 mmol/L (3.5-5.1) L* 01/06/22 04:23 Chloride 103 mmol/L (98-107) 01/06/22 04:23 Carbon Dioxide 33.2 mmol/L (21-32) H 01/06/22 04:23 BUN 22 mg/dL (7-18) H 01/06/22 04:23 Creatinine 1.47 mg/dL (0.55-1.02) H 01/06/22 04:23 Est GFR (MDRD) Af Amer 46 (>60) L 01/06/22 04:23 Est GFR (MDRD) Non-Af 38 (>60) L 01/06/22 04:23 Glucose 51 mg/dL (65-99) L 01/06/22 04:23 POC Glucose (mg/dL) 121 mg/dL (65-99) H 01/06/22 05:12 Calcium 9.0 mg/dL (8.5-10.1) 01/06/22 04:23 Corrected Calcium 9.9 mg/dL (8.5-10.1) 01/06/22 04:23 Magnesium 2.1 mg/dL (1.7-2.9) 01/06/22 04:23 Total Bilirubin 0.50 mg/dL (0.2-1.0) 01/06/22 04:23 AST 21 Units/L (15-37) 01/06/22 04:23 ALT 22 Units/L (12-78) 01/06/22 04:23 Alkaline Phosphatase 223 Units/L (46-116) H 01/06/22 04:23 Creatine Kinase 123 Units/L (26-192) 01/04/22 21:50 CK-MB (CK-2) 1.4 ng/mL (0-4.0) 01/04/22 21:50 CK/CKMB % Calc 1.1 % (<4) 01/04/22 21:50 Troponin I High Sens 59.7 ng/L (4.0-60.0) 01/04/22 21:50 B-Natriuretic Peptide 230 pg/mL (0-79) H 01/06/22 04:23 Total Protein 7.1 g/dL (6.4-8.2) 01/06/22 04:23 Albumin 2.9 g/dL (3.4-5.0) L 01/06/22 04:23 Globulin 4.2 g/dL (2.5-4.5) 01/06/22 04:23 Albumin/Globulin Ratio 0.7 Ratio (1.1-2.1) L 01/06/22 04:23 SARS CoV-2 RNA Rapid WILLIAM Negative (NEGATIVE) 01/04/22 21:48 Plan (1) CHF exacerbation: Status: Acute Qualifiers: Heart failure type: diastolic Qualified Code(s): I50.33 - Acute on chronic diastolic (congestive) heart failure (2) Acute dyspnea: Status: Acute (3) Hypertension: Status: Chronic Qualifiers: Hypertension type: primary hypertension Qualified Code(s): I10 - Essential (primary) hypertension (4) Bilateral pleural effusion: Status: Acute (5) Diabetes: Status: Chronic Qualifiers: Diabetes mellitus complication status: with other specified complication Diabetes mellitus prison insulin use: with prison use Diabetes mellitus type: type 2 Qualified Code(s): E11.69 - Type 2 diabetes mellitus with other specified complication; Z79.4 - group home (current) use of insulin (6) Hypokalemia: Status: Acute
[2022-01-06] MEDS ORDERED: NS 500 ML IV 500 ML IV ONE (11:13)
[2022-01-06] MEDS: ROCEPHIN VIAL 1 GRAM 1 G in NS 100 ML IV 100 ML IV SCH (11:26)
[2022-01-06] MEDS: NovoLIN R (or HumuLIN R) SUBCUT PRN ×2 (11:49→16:32)
[2022-01-06] MEDS: DUONEB 0.5 MG/3 MG (3 mL) NEB SCH ×3 (13:10→21:00)
[2022-01-06] MEDS ORDERED: SNACK - Diabetic Appropriate PO SCH (20:00)
[2022-01-06] MEDS: COLACE CAP 100 MG PO SCH (20:38)
[2022-01-06] MEDS: SNACK - Diabetic Appropriate PO SCH (20:39)
[2022-01-06] MEDS: LASIX IVP SCH (20:48)
[2022-01-07] MEDS: ULTRAM PO PRN ×2 (04:39→21:35)
[2022-01-07] MEDS: APRESOLINE TAB 10 MG PO SCH ×3 (05:16→21:35)
[2022-01-07 06:28] LABS: BASOPHILS # (AUTO) 0.1 X10^3/uL (0.0-0.1); BASOPHILS % (AUTO) 0.9 % (0.2-1.0); EOSINOPHILS # (AUTO) 0.1 x10^3/uL (0.0-0.2); EOSINOPHILS % (AUTO) 1.9 % (0.9-2.9); HEMOGLOBIN 10.9 g/dL (12.0-16.0); LYMPHOCYTES # (AUTO) 2.2 X10^3/uL (1.3-2.9); LYMPHOCYTES % (AUTO) 33.6 % (21.0-51.0); MEAN CORPUSCULAR HGB CONC 33.1 g/dL (33.0-35.0); MEAN CORPUSCULAR VOLUME 78.5 fL (80.0-100.0); MEAN PLATELET VOLUME 8.5 fL (7.4-11.0); MONOCYTES # (AUTO) 0.5 x10^3/uL (0.3-0.8); MONOCYTES % (AUTO) 7.3 % (0.0-13.0); NEUTROPHILS # (AUTO) 3.7 x10^3/uL (2.2-4.8); NEUTROPHILS % (AUTO) 56.3 % (42.0-75.0); RED BLOOD COUNT 4.21 X10^6/uL (3.5-5.4); RED CELL DISTRIBUTION WIDTH 15.6 % (11.6-16.5); WHITE BLOOD COUNT 6.5 X10^3/uL (3.6-10.0)
[2022-01-07 06:39] LABS: CALCIUM 8.9 mg/dL (8.5-10.1); CARBON DIOXIDE 30.4 mmol/L (21-32); CREATININE 1.8 mg/dL (0.55-1.02)
[2022-01-07] MEDS: DUONEB 0.5 MG/3 MG (3 mL) NEB SCH ×3 (06:40→21:01)
[2022-01-07] MEDS: PROTONIX INJ 40 MG VIAL IVP SCH ×2 (08:44→21:33)
[2022-01-07] MEDS: ROCEPHIN VIAL 1 GRAM 1 G in NS 100 ML IV 100 ML IV SCH (08:44)
[2022-01-07] MEDS: PROCARDIA XL PO SCH ×2 (08:45→21:34)
[2022-01-07] MEDS: MICRO K EXTEN CAP 10 MEQ PO SCH ×2 (08:45→21:34)
[2022-01-07] MEDS: COMBIGAN EYE DROPS EACHEYE SCH ×2 (08:46→21:35)
[2022-01-07] MEDS: MILK OF MAGNESIA PO SCH (08:46)
[2022-01-07] MEDS: FLONASE NASAL SPRAY ENOSTRIL SCH (08:46)
[2022-01-07] MEDS ORDERED: LASIX IVP SCH (10:02)
--- NOTE | 2022-01-07 11:35 | PCM.PROG ---
Progress Note Progress Note for Day of Date of Exam: 01/07/22 Subjective Subjective: Patient seen at bedside, no events overnight. She remains on 2L NC. She states her breathing is better, she has been ambulating in the room. Her FSBG did go up to 500 last night. She has been getting SSI. Labs reviewed CXR: small b/l effusions with bibasal opacities ECHO 05/20/21: Grade 3 restrictive DD, EF 61%, mild PH Plan: Will decrease lasix to 40 mg IV daily due to worsening renal function. Resume NPH at 15 units BID, check FSBG prior to meals, continue SSI. Continue Rocephin and nebs. Ambulate as tolerated. Patient reports constipation, will add stool softner. Wean O2 as tolerated. Monitor AM labs/imaging. Past Medical Family Social History Past Med/Fam/Surg Hx: No changes since H&P Allergies: Allergies GISEL Inhibitors Allergy (Verified 12/01/21 11:35) clonidine Allergy (Verified 12/01/21 11:30) codeine Allergy (Verified 12/01/21 11:30) hydrocodone Allergy (Verified 12/01/21 11:30) insulin detemir [From Levemir] Allergy (Verified 12/01/21 11:30) Iodinated Contrast Media Allergy (Verified 12/01/21 11:30) iodine Allergy (Verified 12/01/21 11:30) ketorolac [From Toradol] Allergy (Verified 12/01/21 11:30) olmesartan [From Benicar] Allergy (Verified 12/01/21 11:30) Pork/Porcine Containing Products Allergy (Verified 01/05/22 09:13) insulin glargine [From Lantus] Adverse Reaction (Verified 12/01/21 11:30) BETA-BLOCKERS Allergy (Uncoded 12/01/21 11:30) Review of Systems ROS: No change since H&P Vital Signs and I&O's Vital Signs: Temperature 99.4 F Pulse Rate [Left Brachial] 90 Pulse Rate 76 Respiratory Rate 20 Blood Pressure [Right Arm] 184/77 Blood Pressure [Left Arm] 142/65 Blood Pressure 207/91 O2 Sat by Pulse Oximetry 97 Intake and Output: Intake & Output 01/04/22 01/05/22 01/06/22 01/07/22 23:59 23:59 23:59 23:59 Intake Total 615 / 615 3271 / 3271 200 / 200 Output Total / 3 Balance 612 / 612 3271 / 3271 200 / 200 Physical Exam Oriented: Normal Eyes: Normal Ear: Normal Nose: Normal Throat: Normal Respiratory: Generalized and Diminished Cardiovascular: Normal Auscultation: Bowel Sounds: Normal Tenderness: Normal Skin: Normal Musculoskeletal: Back:Lumbar and Tender Psychiatric: Normal Mood Description: Calm Affect: Normal Speech Pattern: Clear and Appropriate Laboratory and Diagnostics Result Diagrams: 01/07/22 06:08 01/07/22 06:08 Labs: Laboratory WBC 6.5 X10^3/uL (3.6-10.0) 01/07/22 06:08 RBC 4.21 X10^6/uL (3.5-5.4) 01/07/22 06:08 Hgb 10.9 g/dL (12.0-16.0) L 01/07/22 06:08 Hct 33.0 % (36.0-47.0) L 01/07/22 06:08 MCV 78.5 fL (80.0-100.0) L 01/07/22 06:08 MCH 26.0 pg (27.0-34.0) L 01/07/22 06:08 MCHC 33.1 g/dL (33.0-35.0) 01/07/22 06:08 RDW 15.6 % (11.6-16.5) 01/07/22 06:08 Plt Count 245 X10^3/uL (150.0-450.0) 01/07/22 06:08 Plt Count Comment Adequate (ADEQUATE) 01/06/22 04:23 MPV 8.5 fL (7.4-11.0) 01/07/22 06:08 Neut % (Auto) 56.3 % (42.0-75.0) 01/07/22 06:08 Lymph % (Auto) 33.6 % (21.0-51.0) 01/07/22 06:08 [place] % (Auto) 7.3 % (0.0-13.0) 01/07/22 06:08 Eos % (Auto) 1.9 % (0.9-2.9) 01/07/22 06:08 Baso % (Auto) 0.9 % (0.2-1.0) 01/07/22 06:08 Neut # (Auto) 3.7 x10^3/uL (2.2-4.8) 01/07/22 06:08 Lymph # (Auto) 2.2 X10^3/uL (1.3-2.9) 01/07/22 06:08 [place] # (Auto) 0.5 x10^3/uL (0.3-0.8) 01/07/22 06:08 Eos # (Auto) 0.1 x10^3/uL (0.0-0.2) 01/07/22 06:08 Baso # (Auto) 0.1 X10^3/uL (0.0-0.1) 01/07/22 06:08 Absolute Nucleated RBC 0.0 /100WBC 01/07/22 06:08 Total Counted 100 01/06/22 04:23 Neutrophils % (Manual) 60 % (39-76) 01/06/22 04:23 Lymphocytes % (Manual) 30 % (13-43) 01/06/22 04:23 Monocytes % (Manual) 7 % (4-9) 01/06/22 04:23 Eosinophils % (Manual) 3 % (0-6) 01/06/22 04:23 Plt Morphology Comment Normal (NORMAL) 01/06/22 04:23 RBC Morphology Abnormal (NORMAL) A 01/06/22 04:23 Hypochromasia Slight A 01/06/22 04:23 D-Dimer 5.65 ug/ml (0.0-0.57) H* 01/04/22 21:50 Sample Site Lrad 01/04/22 23:00 ABG pH 7.440 (7.35-7.45) 01/04/22 23:00 ABG pCO2 44.0 mmHg (35.0-45.0) 01/04/22 23:00 ABG pO2 73.0 mmHg (80.0-100.0) L 01/04/22 23:00 ABG HCO3 29.9 mmol/L (22-26) H 01/04/22 23:00 ABG O2 Saturation 95.0 % (90-100) 01/04/22 23:00 ABG Base Excess 5.1 mmol/L (-2.0-2.0) H 01/04/22 23:00 Jason Test Pos 01/04/22 23:00 A-a Gradient 129.0 mmHg 01/04/22 23:00 FiO2 36.0 01/04/22 23:00 Blood Gas Comments Amy well ms 01/04/22 23:00 Sodium 138 mmol/L (136-145) 01/07/22 06:08 Corrected Sodium 142 mmol/L (136-145) 01/07/22 06:08 Potassium 4.6 mmol/L (3.5-5.1) 01/07/22 06:08 Chloride 101 mmol/L (98-107) 01/07/22 06:08 Carbon Dioxide 30.4 mmol/L (21-32) 01/07/22 06:08 BUN 25 mg/dL (7-18) H 01/07/22 06:08 Creatinine 1.80 mg/dL (0.55-1.02) H 01/07/22 06:08 Est GFR (MDRD) Af Amer 36 (>60) L 01/07/22 06:08 Est GFR (MDRD) Non-Af 30 (>60) L 01/07/22 06:08 Glucose 257 mg/dL (65-99) H 01/07/22 06:08 POC Glucose (mg/dL) 257 mg/dL (65-99) H 01/07/22 11:15 Calcium 8.9 mg/dL (8.5-10.1) 01/07/22 06:08 Corrected Calcium 9.9 mg/dL (8.5-10.1) 01/06/22 04:23 Magnesium 2.1 mg/dL (1.7-2.9) 01/06/22 04:23 Total Bilirubin 0.50 mg/dL (0.2-1.0) 01/06/22 04:23 AST 21 Units/L (15-37) 01/06/22 04:23 ALT 22 Units/L (12-78) 01/06/22 04:23 Alkaline Phosphatase 223 Units/L (46-116) H 01/06/22 04:23 Creatine Kinase 123 Units/L (26-192) 01/04/22 21:50 CK-MB (CK-2) 1.4 ng/mL (0-4.0) 01/04/22 21:50 CK/CKMB % Calc 1.1 % (<4) 01/04/22 21:50 Troponin I High Sens 59.7 ng/L (4.0-60.0) 01/04/22 21:50 B-Natriuretic Peptide 230 pg/mL (0-79) H 01/06/22 04:23 Total Protein 7.1 g/dL (6.4-8.2) 01/06/22 04:23 Albumin 2.9 g/dL (3.4-5.0) L 01/06/22 04:23 Globulin 4.2 g/dL (2.5-4.5) 01/06/22 04:23 Albumin/Globulin Ratio 0.7 Ratio (1.1-2.1) L 01/06/22 04:23 SARS CoV-2 RNA Rapid WILLIAM Negative (NEGATIVE) 01/04/22 21:48 Plan (1) Pneumonia: Status: Acute Qualifiers: Laterality: unspecified laterality Lung location: unspecified part of lung Pneumonia type: due to unspecified organism Qualified Code(s): J18.9 - Pneumonia, unspecified organism (2) CHF exacerbation: Status: Acute Qualifiers: Heart failure type: diastolic Qualified Code(s): I50.33 - Acute on chronic diastolic (congestive) heart failure (3) Acute dyspnea: Status: Acute (4) Hypertension: Status: Chronic Qualifiers: Hypertension type: primary hypertension Qualified Code(s): I10 - Essential (primary) hypertension (5) Bilateral pleural effusion: Status: Acute (6) Diabetes: Status: Chronic Qualifiers: Diabetes mellitus complication status: with other specified complication 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
[2022-01-07] MEDS ORDERED: MILK OF MAGNESIA PO SCH (12:00)
[2022-01-07] MEDS: NovoLIN R (or HumuLIN R) SUBCUT PRN (16:48)
[2022-01-07] MEDS: COLACE CAP 100 MG PO SCH (21:33)
[2022-01-07] MEDS: SNACK - Diabetic Appropriate PO SCH (21:36)
[2022-01-08] MEDS: DUONEB 0.5 MG/3 MG (3 mL) NEB SCH ×3 (06:07→20:54)
[2022-01-08] MEDS: APRESOLINE TAB 10 MG PO SCH ×3 (06:10→21:00)
--- NOTE | 2022-01-08 06:20 | RAD ---
HISTORYSOBSTUDYCHEST, 1 [id number]/2022.TECHNIQUEAP view of the chestFINDINGSThe cardiac and mediastinal contours appear normal. Mild improvement in right base and left base airspace opacities. Blunted costophrenic sulci remain. No pneumothorax Soft tissue attenuation limits evaluation.IMPRESSIONMild improvement in bibasilar airspace opacities. Small pleural effusions remain.Electronically signed by: Luther Rachel (Jan 08, 2022 06:19:24)
[2022-01-08 06:59] LABS: BASOPHILS # (AUTO) 0.1 X10^3/uL (0.0-0.1); BASOPHILS % (AUTO) 0.8 % (0.2-1.0); EOSINOPHILS # (AUTO) 0.1 x10^3/uL (0.0-0.2); EOSINOPHILS % (AUTO) 1.5 % (0.9-2.9); HEMATOCRIT 33.6 % (36.0-47.0); LYMPHOCYTES # (AUTO) 2.2 X10^3/uL (1.3-2.9); LYMPHOCYTES % (AUTO) 33.1 % (21.0-51.0); MEAN CORPUSCULAR HEMOGLOBIN 25.8 pg (27.0-34.0); MEAN CORPUSCULAR HGB CONC 32.8 g/dL (33.0-35.0); MEAN CORPUSCULAR VOLUME 78.4 fL (80.0-100.0); MEAN PLATELET VOLUME 8.9 fL (7.4-11.0); MONOCYTES # (AUTO) 0.5 x10^3/uL (0.3-0.8); MONOCYTES % (AUTO) 7.1 % (0.0-13.0); NEUTROPHILS # (AUTO) 3.9 x10^3/uL (2.2-4.8); NEUTROPHILS % (AUTO) 57.5 % (42.0-75.0); RED BLOOD COUNT 4.29 X10^6/uL (3.5-5.4); RED CELL DISTRIBUTION WIDTH 15.6 % (11.6-16.5); WHITE BLOOD COUNT 6.7 X10^3/uL (3.6-10.0)
[2022-01-08 07:33] LABS: CALCIUM 9.1 mg/dL (8.5-10.1); CARBON DIOXIDE 27.2 mmol/L (21-32); CREATININE 1.79 mg/dL (0.55-1.02)
[2022-01-08] MEDS: FLONASE NASAL SPRAY ENOSTRIL SCH (08:23)
[2022-01-08] MEDS: COMBIGAN EYE DROPS EACHEYE SCH ×2 (08:23→20:52)
[2022-01-08] MEDS: PROTONIX INJ 40 MG VIAL IVP SCH ×3 (08:31→20:52)
[2022-01-08] MEDS: LASIX IVP SCH (08:32)
[2022-01-08] MEDS: MILK OF MAGNESIA PO SCH (08:32)
[2022-01-08] MEDS: ROCEPHIN VIAL 1 GRAM 1 G in NS 100 ML IV 100 ML IV SCH (08:34)
[2022-01-08] MEDS: MICRO K EXTEN CAP 10 MEQ PO SCH ×2 (08:35→20:52)
[2022-01-08] MEDS: PROCARDIA XL PO SCH ×2 (08:35→20:52)
[2022-01-08] MEDS: ULTRAM PO PRN ×2 (08:36→20:53)
[2022-01-08] MEDS: APRESOLINE INJ 20 MG VIAL IVP PRN ×2 (13:00→22:59)
[2022-01-08 13:54] LABS: ABG BASE EXCESS 7.1 mmol/L (-2.0-2.0)
[2022-01-08 13:56] LABS: ABG ALLEN TEST POS; ABG HCO3 30.1 mmol/L (22-26)
[2022-01-08 14:32] LABS: CKMB % 0.9 % (<4)
[2022-01-08] MEDS: NovoLIN R (or HumuLIN R) SUBCUT PRN ×2 (16:25→23:18)
[2022-01-08] MEDS: COLACE CAP 100 MG PO SCH (20:52)
[2022-01-08] MEDS: ELIQUIS PO SCH ×2 (20:52→20:53)
[2022-01-08] MEDS: SNACK - Diabetic Appropriate PO SCH (20:52)
[2022-01-09] MEDS: APRESOLINE TAB 10 MG PO SCH (05:32)
[2022-01-09] MEDS: DUONEB 0.5 MG/3 MG (3 mL) NEB SCH (05:48)
[2022-01-09 06:10] LABS: BASOPHILS # (AUTO) 0.1 X10^3/uL (0.0-0.1); BASOPHILS % (AUTO) 1.3 % (0.2-1.0); EOSINOPHILS # (AUTO) 0.1 x10^3/uL (0.0-0.2); EOSINOPHILS % (AUTO) 1.7 % (0.9-2.9); HEMATOCRIT 32.7 % (36.0-47.0); HEMOGLOBIN 10.9 g/dL (12.0-16.0); LYMPHOCYTES # (AUTO) 2.2 X10^3/uL (1.3-2.9); LYMPHOCYTES % (AUTO) 35.8 % (21.0-51.0); MEAN CORPUSCULAR HEMOGLOBIN 25.7 pg (27.0-34.0); MEAN CORPUSCULAR HGB CONC 33.2 g/dL (33.0-35.0); MEAN CORPUSCULAR VOLUME 77.5 fL (80.0-100.0); MEAN PLATELET VOLUME 8.8 fL (7.4-11.0); MONOCYTES # (AUTO) 0.4 x10^3/uL (0.3-0.8); MONOCYTES % (AUTO) 7.1 % (0.0-13.0); NEUTROPHILS # (AUTO) 3.3 x10^3/uL (2.2-4.8); NEUTROPHILS % (AUTO) 54.1 % (42.0-75.0); RED BLOOD COUNT 4.22 X10^6/uL (3.5-5.4); RED CELL DISTRIBUTION WIDTH 15.8 % (11.6-16.5)
--- NOTE | 2022-01-09 06:16 | RAD ---
HISTORYShortness of breathSTUDYChest AP [id number]/11/2022FINDINGSThe heart is upper limits normal in size. No congestive heart failure is noted. Haziness in the right lung base is unchanged and can be due to pleural effusion and/or infiltrate. Small left pleural effusion is present. Remainder of the lung raymundo are clear. Bony thorax is unremarkable.IMPRESSIONHaziness at the right lung base likely due to infiltrate and right pleural effusion not significantly changedSmall left pleuralElectronically signed by: CINDY WHELAN (Jan 09, 2022 06:15:25)
[2022-01-09 06:39] LABS: ALBUMIN 2.6 g/dL (3.4-5.0); CALCIUM 8.9 mg/dL (8.5-10.1); CARBON DIOXIDE 30.3 mmol/L (21-32); CREATININE 1.52 mg/dL (0.55-1.02)
[2022-01-09] MEDS: ROCEPHIN VIAL 1 GRAM 1 G in NS 100 ML IV 100 ML IV SCH (10:26)
[2022-01-09] MEDS: COMBIGAN EYE DROPS EACHEYE SCH (10:26)
[2022-01-09] MEDS: PROTONIX INJ 40 MG VIAL IVP SCH (10:30)
[2022-01-09] MEDS: LASIX IVP SCH (10:31)
[2022-01-09] MEDS: FLONASE NASAL SPRAY ENOSTRIL SCH (10:31)
[2022-01-09] MEDS: MILK OF MAGNESIA PO SCH (10:31)
[2022-01-09] MEDS: PROCARDIA XL PO SCH (10:35)
[2022-01-09] MEDS: MICRO K EXTEN CAP 10 MEQ PO SCH (10:35)
[2022-01-09] MEDS: ULTRAM PO PRN (10:36)
[2022-01-09] MEDS: ELIQUIS PO SCH (10:37)
[2022-01-09] MEDS: NovoLIN R (or HumuLIN R) SUBCUT PRN (11:37)
[2022-01-09 13:50] VITALS: BP 131/88
== END 2022-01-09 15:05 | disposition home health service (06) ==
LOC: ER 21:26 → MED/SURG 21:26
PROVIDERS: ADMIT Internal Medicine; ATTEND Internal Medicine

== ENCOUNTER 2022-04-20 13:06 | Inpatient (IN) ==
[2022-04-20] MEDS ORDERED: LASIX ONE (13:22)
[2022-04-20 13:57] LABS: ABG BASE EXCESS 2.5 mmol/L (-2.0-2.0); ABG HCO3 28.8 mmol/L (22-26)
[2022-04-20 13:59] LABS: ABG ALLEN TEST POS
[2022-04-20] MEDS ORDERED: LASIX IVP ONE (14:02)
--- NOTE | 2022-04-20 14:08 | DR.SOBA ---
HPI <Mitch Hightower - Last Filed: 04/27/22 08:26> Time Seen Time Seen by Provider: 04/20/22 14:05 Primary Care Physician Primary Care Physician: Ramona Emery Chief Complaint Doctors Comments: SHORTNESS OF BREATH,H/O CHF,NOT ON LASIX AFTER RETURNING FROM [facility] IN [place] RECENTLY. Chief Complaint:: Pt c/o shortness of breath. EMS states this started at 0900 today. Pt unable to speak due to shortness of breath. Pt is sitting in tripod position. She is diaphoretic. EMS states pt was d/c from [place] last week and was advised to stop taking Lasix. Family reports 13# weight gain in one week. Un able to obtain BP after multiple attempts with different size cuffs and different locations. Dr. Hightower notified of patient arrival. COVID-19 Coronavirus risk:travel/contact w/high risk person: No Has patient experienced Coronavirus symptoms: No Source History Provided: Patient and EMS Mode of Arrival Mode of Arrival: Stretcher Timing Onset of Chief Complaint: 04/20/22 PMH <Mitchefren Hightower - Last Filed: 04/27/22 08:26> PMH Past Medical History: Yes Past Medical History: Angina, Arthritis, CHF, Diabetes and Hypertension Past Surgical History: Yes Surgical History: Cholecystectomy and Other Family History History of Family Medical Conditions: Yes Family Medical History: Diabetes Mellitus, Cancer, [place], Coronary Artery Disease, Heart Failure and Hypertension Social History Does patient currently use any type of tobacco product: No Have you used tobacco products in the last 12 months: No Type of Tobacco Use: None Do you use any recreational Drugs:: No Travel Risk Coronavirus risk:travel/contact w/high risk person: No Has patient experienced Coronavirus symptoms: No Infectious screening In the last 2 months have you had wt loss of >10#?: NO Have you had fever, night sweats or hemotysis?: No Have you traveled outside the country in the last 6 months?: No Isolation: Standard ROS <Mitch Hightower - Last Filed: 04/27/22 08:26> Review of Systems Constitutional: Other (SHORTNESS OF BREATH) Eyes: No Symptoms Reported ENTM: No Symptoms Reported PE <Mitch Campbell - Last Filed: 04/27/22 08:26> Vital Signs Vitals: Temperature 99.4 F Pulse Rate 61 Respiratory Rate 15 Blood Pressure [Right Arm] 144/69 Blood Pressure [Left Arm] 152/72 Blood Pressure 183/80 O2 Sat by Pulse Oximetry 100 <Susana Balbuena - Last Filed: 04/21/22 04:20> Vital Signs Vitals: Temperature 99.4 F Pulse Rate 61 Respiratory Rate 15 Blood Pressure [Right Arm] 144/69 Blood Pressure [Left Arm] 152/72 Blood Pressure 183/80 O2 Sat by Pulse Oximetry 100 General Limitations: No Limitations General Appearance: Alert and In No Apparent Distress Head Head Exam: Normal Inspection Eyes Eye exam: Normal Appearance ENT ENT Exam: Normal Exam Neck Neck Exam: Normal Inspection Chest Chest Inspection: Normal Inspection Respiratory Respiratory Exam: Normal Lung Sounds Bilat Respiratory Exam: Bilateral: Clear to Auscultation Cardiovascular Cardiovascular Exam: Regular Rate and Normal Rhythm Abdominal Exam Abdominal Exam: Normal Inspection, Normal Bowel Sounds and Soft Extremities Extremities Exam: Normal Inspection Back Back Exam: Normal Inspection Neurologic Neurological Exam: Alert and Oriented X3 Psychiatric Psychiatric Exam: Normal Affect and Normal Mood Skin Skin Exam: Warm, Dry, Intact and Normal Color <Susana Balbuena - Last Filed: 04/21/22 04:20> Treatment Treatment: 1999 received care of pt from Dr Hightower. Consultation Call Returned: 22:00 Consultation Comments: Dr Lance accepts admission. Critical Care Notes Total Time (mins): 30 Critical Diagnosis: hypertensive urgency, respiratory failure with hypoxia and hypercapnia, mild chf Critical Interventions: diuresis, bp control with addition of ntg gtt ROR <Mitch Hightower - Last Filed: 04/27/22 08:26> Labs Reviewed Result Diagrams: 04/27/22 05:14 04/27/22 05:14 Laboratory: WBC 6.7 X10^3/uL (3.6-10.0) 04/20/22 13:28 RBC 3.71 X10^6/uL (3.5-5.4) 04/20/22 13:28 Hgb 10.4 g/dL (12.0-16.0) L 04/20/22 13:28 Hct 30.8 % (36.0-47.0) L 04/20/22 13:28 MCV 83.0 fL (80.0-100.0) 04/20/22 13:28 MCH 28.1 pg (27.0-34.0) 04/20/22 13:28 MCHC 33.9 g/dL (33.0-35.0) 04/20/22 13:28 RDW 17.1 % (11.6-16.5) H 04/20/22 13:28 Plt Count 308 X10^3/uL (150.0-450.0) 04/20/22 13:28 MPV 9.1 fL (7.4-11.0) 04/20/22 13:28 Neut % (Auto) 68.2 % (42.0-75.0) 04/20/22 13:28 Lymph % (Auto) 23.7 % (21.0-51.0) 04/20/22 13:28 [place] % (Auto) 5.8 % (0.0-13.0) 04/20/22 13:28 Eos % (Auto) 1.1 % (0.9-2.9) 04/20/22 13:28 Baso % (Auto) 1.2 % (0.2-1.0) H 04/20/22 13:28 Neut # (Auto) 4.6 x10^3/uL (2.2-4.8) 04/20/22 13:28 Lymph # (Auto) 1.6 X10^3/uL (1.3-2.9) 04/20/22 13:28 [place] # (Auto) 0.4 x10^3/uL (0.3-0.8) 04/20/22 13:28 Eos # (Auto) 0.1 x10^3/uL (0.0-0.2) 04/20/22 13:28 Baso # (Auto) 0.1 X10^3/uL (0.0-0.1) 04/20/22 13:28 Absolute Nucleated RBC 0.1 /100WBC 04/20/22 13:28 PT 15.3 SECONDS (11.8-14.3) 04/20/22 13:28 INR Target Range - 04/20/22 13:28 INR 1.25 (0.8-1.3) 04/20/22 13:28 APTT 29.4 SECONDS (22.9-36.5) 04/20/22 13:28 PTT Comment - 04/20/22 13:28 Sample Site Lr 04/20/22 13:44 ABG pH 7.360 (7.35-7.45) 04/20/22 13:44 ABG pCO2 51.0 mmHg (35.0-45.0) H* 04/20/22 13:44 ABG pO2 89.0 mmHg (80.0-100.0) 04/20/22 13:44 ABG HCO3 28.8 mmol/L (22-26) H 04/20/22 13:44 ABG O2 Saturation 96.0 % (90-100) 04/20/22 13:44 ABG Base Excess 2.5 mmol/L (-2.0-2.0) H 04/20/22 13:44 Jason Test Pos 04/20/22 13:44 A-a Gradient 104.0 mmHg 04/20/22 13:44 FiO2 36.0 04/20/22 13:44 Blood Gas Comments Pt aury well cdn 04/20/22 13:44 Sodium 137 mmol/L (136-145) 04/20/22 13:28 Corrected Sodium 141 mmol/L (136-145) 04/20/22 13:28 Potassium 4.7 mmol/L (3.5-5.1) 04/20/22 13:28 Chloride 102 mmol/L (98-107) 04/20/22 13:28 Carbon Dioxide 27.1 mmol/L (21-32) 04/20/22 13:28 BUN 40 mg/dL (7-18) H 04/20/22 13:28 Creatinine 2.07 mg/dL (0.55-1.02) H 04/20/22 13:28 Est GFR (MDRD) Af Amer 31 (>60) L 04/20/22 13:28 Est GFR (MDRD) Non-Af 26 (>60) L 04/20/22 13:28 Glucose 284 mg/dL (65-99) H 04/20/22 13:28 Calcium 8.7 mg/dL (8.5-10.1) 04/20/22 13:28 Corrected Calcium 10.0 mg/dL (8.5-10.1) 04/20/22 13:28 Total Bilirubin 0.40 mg/dL (0.2-1.0) 04/20/22 13:28 AST 121 Units/L (15-37) H 04/20/22 13:28 ALT 66 Units/L (12-78) 04/20/22 13:28 Alkaline Phosphatase 399 Units/L (46-116) H 04/20/22 13:28 Creatine Kinase 119 Units/L (26-192) 04/20/22 13:28 Troponin I High Sens 97.0 ng/L (4.0-60.0) H* 04/20/22 13:28 B-Natriuretic Peptide 487 pg/mL (0-79) H 04/20/22 13:28 Total Protein 7.5 g/dL (6.4-8.2) 04/20/22 13:28 Albumin 2.4 g/dL (3.4-5.0) L 04/20/22 13:28 Globulin 5.1 g/dL (2.5-4.5) H 04/20/22 13:28 Albumin/Globulin Ratio 0.5 Ratio (1.1-2.1) L 04/20/22 13:28 SARS-CoV-2 (PCR) Negative (NEGATIVE) 04/20/22 22:22 <Susana Balbuena - Last Filed: 04/21/22 04:20> Labs Reviewed Laboratory Results Reviewed?: Yes Laboratory: WBC 6.7 X10^3/uL (3.6-10.0) 04/20/22 13:28 RBC 3.71 X10^6/uL (3.5-5.4) 04/20/22 13:28 Hgb 10.4 g/dL (12.0-16.0) L 04/20/22 13:28 Hct 30.8 % (36.0-47.0) L 04/20/22 13:28 MCV 83.0 fL (80.0-100.0) 04/20/22 13:28 MCH 28.1 pg (27.0-34.0) 04/20/22 13:28 MCHC 33.9 g/dL (33.0-35.0) 04/20/22 13:28 RDW 17.1 % (11.6-16.5) H 04/20/22 13:28 Plt Count 308 X10^3/uL (150.0-450.0) 04/20/22 13:28 MPV 9.1 fL (7.4-11.0) 04/20/22 13:28 Neut % (Auto) 68.2 % (42.0-75.0) 04/20/22 13:28 Lymph % (Auto) 23.7 % (21.0-51.0) 04/20/22 13:28 [place] % (Auto) 5.8 % (0.0-13.0) 04/20/22 13:28 Eos % (Auto) 1.1 % (0.9-2.9) 04/20/22 13:28 Baso % (Auto) 1.2 % (0.2-1.0) H 04/20/22 13:28 Neut # (Auto) 4.6 x10^3/uL (2.2-4.8) 04/20/22 13:28 Lymph # (Auto) 1.6 X10^3/uL (1.3-2.9) 04/20/22 13:28 [place] # (Auto) 0.4 x10^3/uL (0.3-0.8) 04/20/22 13:28 Eos # (Auto) 0.1 x10^3/uL (0.0-0.2) 04/20/22 13:28 Baso # (Auto) 0.1 X10^3/uL (0.0-0.1) 04/20/22 13:28 Absolute Nucleated RBC 0.1 /100WBC 04/20/22 13:28 PT 15.3 SECONDS (11.8-14.3) 04/20/22 13:28 INR Target Range - 04/20/22 13:28 INR 1.25 (0.8-1.3) 04/20/22 13:28 APTT 29.4 SECONDS (22.9-36.5) 04/20/22 13:28 PTT Comment - 04/20/22 13:28 Sample Site Lr 04/20/22 13:44 ABG pH 7.360 (7.35-7.45) 04/20/22 13:44 ABG pCO2 51.0 mmHg (35.0-45.0) H* 04/20/22 13:44 ABG pO2 89.0 mmHg (80.0-100.0) 04/20/22 13:44 ABG HCO3 28.8 mmol/L (22-26) H 04/20/22 13:44 ABG O2 Saturation 96.0 % (90-100) 04/20/22 13:44 ABG Base Excess 2.5 mmol/L (-2.0-2.0) H 04/20/22 13:44 Jason Test Pos 04/20/22 13:44 A-a Gradient 104.0 mmHg 04/20/22 13:44 FiO2 36.0 04/20/22 13:44 Blood Gas Comments Pt aury well cdn 04/20/22 13:44 Sodium 137 mmol/L (136-145) 04/20/22 13:28 Corrected Sodium 141 mmol/L (136-145) 04/20/22 13:28 Potassium 4.7 mmol/L (3.5-5.1) 04/20/22 13:28 Chloride 102 mmol/L (98-107) 04/20/22 13:28 Carbon Dioxide 27.1 mmol/L (21-32) 04/20/22 13:28 BUN 40 mg/dL (7-18) H 04/20/22 13:28 Creatinine 2.07 mg/dL (0.55-1.02) H 04/20/22 13:28 Est GFR (MDRD) Af Amer 31 (>60) L 04/20/22 13:28 Est GFR (MDRD) Non-Af 26 (>60) L 04/20/22 13:28 Glucose 284 mg/dL (65-99) H 04/20/22 13:28 Calcium 8.7 mg/dL (8.5-10.1) 04/20/22 13:28 Corrected Calcium 10.0 mg/dL (8.5-10.1) 04/20/22 13:28 Total Bilirubin 0.40 mg/dL (0.2-1.0) 04/20/22 13:28 AST 121 Units/L (15-37) H 04/20/22 13:28 ALT 66 Units/L (12-78) 04/20/22 13:28 Alkaline Phosphatase 399 Units/L (46-116) H 04/20/22 13:28 Creatine Kinase 119 Units/L (26-192) 04/20/22 13:28 Troponin I High Sens 97.0 ng/L (4.0-60.0) H* 04/20/22 13:28 B-Natriuretic Peptide 487 pg/mL (0-79) H 04/20/22 13:28 Total Protein 7.5 g/dL (6.4-8.2) 04/20/22 13:28 Albumin 2.4 g/dL (3.4-5.0) L 04/20/22 13:28 Globulin 5.1 g/dL (2.5-4.5) H 04/20/22 13:28 Albumin/Globulin Ratio 0.5 Ratio (1.1-2.1) L 04/20/22 13:28 SARS-CoV-2 (PCR) Negative (NEGATIVE) 04/20/22 22:22 XRAY XRAY Interpreted by: Radiologist X-ray Results: PCXR: Severe hypo inflation No definite lung infiltrates however evaluation of the lung raymundo is limited by severe hypo inflation CT CHEST W/O: Moderate-sized left and moderate to large right pleural effusions slightly increased on the right from previous 04/06/2022. Bibasilar compressive atelectasis. Opioid <Mitch Hightower - Last Filed: 04/27/22 08:26> Opioid Risk Tool Age (Bayron box if 16-45): No History of Preadolescent Sexual Abuse: No Total: 0 Total Score Risk Category: Low Risk Copyright: Israel MCBRIDE predicting aberrant behaviors <Susana Balbuena - Last Filed: 04/21/22 04:20> Opioid Risk Tool Total: 0 Total Score Risk Category: Low Risk Discharge Plan Diagnosis Discharge Problem: Hypertensive urgency, Bilateral pleural effusion, CHF exacerbation, Respiratory failure with hypoxia and hypercapnia Discharge Plan Patient Disposition: 09 ADMITTED INPATIENT Condition: Stable
[2022-04-20 14:10] LABS: BASOPHILS # (AUTO) 0.1 X10^3/uL (0.0-0.1); BASOPHILS % (AUTO) 1.2 % (0.2-1.0); EOSINOPHILS # (AUTO) 0.1 x10^3/uL (0.0-0.2); EOSINOPHILS % (AUTO) 1.1 % (0.9-2.9); HEMATOCRIT 30.8 % (36.0-47.0); HEMOGLOBIN 10.4 g/dL (12.0-16.0); LYMPHOCYTES # (AUTO) 1.6 X10^3/uL (1.3-2.9); LYMPHOCYTES % (AUTO) 23.7 % (21.0-51.0); MEAN CORPUSCULAR HEMOGLOBIN 28.1 pg (27.0-34.0); MEAN CORPUSCULAR HGB CONC 33.9 g/dL (33.0-35.0); MEAN PLATELET VOLUME 9.1 fL (7.4-11.0); MONOCYTES # (AUTO) 0.4 x10^3/uL (0.3-0.8); MONOCYTES % (AUTO) 5.8 % (0.0-13.0); NEUTROPHILS # (AUTO) 4.6 x10^3/uL (2.2-4.8); NEUTROPHILS % (AUTO) 68.2 % (42.0-75.0); RED BLOOD COUNT 3.71 X10^6/uL (3.5-5.4); RED CELL DISTRIBUTION WIDTH 17.1 % (11.6-16.5); WHITE BLOOD COUNT 6.7 X10^3/uL (3.6-10.0)
[2022-04-20 14:33] LABS: ALBUMIN 2.4 g/dL (3.4-5.0); CALCIUM 8.7 mg/dL (8.5-10.1); CARBON DIOXIDE 27.1 mmol/L (21-32); CREATININE 2.07 mg/dL (0.55-1.02); TOTAL PROTEIN 7.5 g/dL (6.4-8.2)
--- NOTE | 2022-04-20 14:54 | RAD ---
HISTORYShortness of breathSTUDYChest AP [id number]/12/2022FINDINGSSeve re hypo inflation accentuates the heart size. It is likely upper limits normal. No definite acute infiltrates are identified however evaluation of the lung raymundo is limited by severe hypo inflation. No definite pleural effusions are identified. Bony thorax is unremarkable.IMPRESSIONSevere hypo inflationNo definite lung infiltrates however evaluation of the lung raymundo is limited by severe hypo inflationElectronically signed by: CINDY WHELAN (Apr 20, 2022 14:53:02)
[2022-04-20] MEDS ORDERED: APRESOLINE INJ 20 MG VIAL IVP ONE ×3 (15:51→20:17)
[2022-04-20] MEDS ORDERED: APRESOLINE INJ 20 MG VIAL ONE ×2 (15:52→20:16)
[2022-04-20] MEDS ORDERED: CATAPRES TAB 0.2 MG ONE (17:19)
[2022-04-20] MEDS ORDERED: CATAPRES TAB 0.2 MG PO ONE (17:24)
[2022-04-20] MEDS ORDERED: MORPHINE SULFATE INJ 2 MG INJ ONE (18:06)
[2022-04-20] MEDS ORDERED: MORPHINE SULFATE INJ 2 MG INJ IVP ONE (18:08)
[2022-04-20] MEDS ORDERED: NITROPRESS 50 MG in D5W 250 ML IV 250 ML IV PRN (21:24)
[2022-04-20] MEDS ORDERED: NITROGLYCERIN IV PREMIX 50 MG 50 MG/250 ML BAG ONE (21:43)
[2022-04-20] MEDS: NITROGLYCERIN IV PREMIX 50 MG 50 MG/250 ML BAG IV PRN (21:50)
--- NOTE | 2022-04-20 22:00 | CT ---
HISTORYTheSTUDYCHEST W/O [id number]/08/2022TECHNIQUEMultiple axial images of the chest were obtained from the thoracic inlet to the upper abdomen without the administration of IV contrast. Dose reduction techniques including Automated Exposure Control (AEC) and adjustment of mA and kV were utilized.FINDINGSThe mediastinum does not demonstrate significant pathological lymphadenopathy. There is no paracardial effusion observed. Coronary artery calcifications present. The thoracic aorta is normal in its contour without evidence for aneurysmal dilatation.Evaluation of the lung parenchyma moderate-sized left pleural effusion. Moderate to large right pleural effusion. Bibasilar compressive atelectasis. No pneumothorax.. No pulmonary nodule or mass can be identified. The bony thorax is unremarkable in its appearance . The visualized portions of the upper abdomen are grossly unremarkable .IMPRESSIONModerate-sized left and moderate to large right pleural effusions slightly increased on the right from previous 04/06/2022.Bibasilar compressive atelectasis.Electronically signed by: Martin Lewis (Apr 20, 2022 21:59:05)
[2022-04-21 04:58] VITALS: BMI 36.3
[2022-04-21] MEDS: NovoLIN R (or HumuLIN R) SUBCUT PRN ×4 (06:41→20:23)
[2022-04-21] MEDS ORDERED: XYLOCAINE 1 % (PLAIN) ONE (08:37)
--- NOTE | 2022-04-21 08:58 | DR.H&P ---
H&P - History & Physical for Day of: H&P Date: 04/20/22 - Chief Complaint Chief Complaint: SOB, WEIGHT GAIN - History of Present Illness History of Present Illness: IS A 66 YEAR OLD PATIENT OF . SHE PRESENTED TO THE ER WITH COMPLAINTS OF INCREASING SHORTNESS OF BREATH THAT STARTED AT APPROXIMATELY 9:00 ON 04/20. PATIENT WAS BARELY ABLE TO SPEAK DUE TO SOB. UPON EXAMINATION IN THE ER, SHE WAS NOTED TO BE SITTING IN A TRIPOD POSITION AND WAS DIAPHORETIC. SHE WAS APPARENTLY RECENTLY DISCHARGED FROM [facility]. SHE HAS A HISTORY OF CHF, BUT WAS ADVISED TO STOP TAKING HER LASIX. PATIENT IS UNSURE TO WHY SHE WAS TOLD TO STOP IT. HER FAMILY REPORTS THAT SHE HAS HAD A 13 POUND WEIGHT GAIN IN THE PAST WEEK. HER PMH INCLUDES: ANGINA, A-FIB, ARTHRITIS, CHF, DM II, HTN, CHOLECYSTECTOMY. ON ARRIVAL TO THE ER, HER VITALS WERE: 99.4-95-38-94%NC@2-171/93. ON ROOM AIR, HER SATURATIONS DROPPED TO THE 80s. LABS WERE OBTAINED. WBC 6.7, RBC 3.71, HGB 10.4, HCT 30.8, PLT COUNT 308, SODIUM 137, POTASSIUM 4.7, CHLORIDE 102, BUN 40, CREATININE 2.07, GLUCOSE 284, AST 121, ALT 66, ALK PHOS 399, CREATINE KINASE 119, TROPONIN 97.0, BNP 487, TOTAL PROTEIN 7.5, ALBUMIN 2.4. COVID-19 NEGATIVE. ABG REVEALED: PH 7.360, PC02 51, P02 89, HC03 28.8, 02 SAT 96, BASE EXCESS 2.5, FI02 36.0 A CHEST XRAY WAS OBTAINED AND REVEALED: Severe hypo inflation accentuates the heart size. It is likely upper limits normal. No definite acute infiltrates are identified however evaluation of the lung raymundo is limited by severe hypo inflation. No definite pleural effusions are identified. Bony thorax is unremarkable. EKG REVEALED: ATRIAL FIBRILLATION WITH HR 95. CHEST CT OBTAINED AND REVEALED: Moderate-sized left and moderate to large right pleural effusions slightly increased on the right from previous 04/06/2022. Bibasilar compressive atelectasis. A APONTE CATHETER WAS PLACED WHILE SHE WAS IN THE ER. SHE WAS GIVEN LASIX 80MG IV X 1, APRESOLINE 10MG IV X 3 DOSES, CATAPRES 0.2MG PO X 1, MORPHINE 2MG IV X 1. BLOOD PRESSURE REMAINED ELEVATED, REACHING HIGH 250/134. IT DID EVENTUALLY DECREASE TO 192/83. SHE WAS ADMITTED TO THE HOSPITAL INPATIENT STATUS FOR FURTHER EVALUATION AND TREATMENT OF CHF, HYPERTENSIVE URGENCY, HYPOXIA, RESPIRATORY FAILURE WITH HYPOXIA AND HYPERCAPNIA, AND MODERATE PLEURAL EFFUSIONS. SHE WAS STARTED ON A NITRO DRIP, LASIX 20MG IV BID, OTBS ACHS, HUMULIN R SLIDING SCALE. WE WILL REVIEW HER HOME MEDICATIONS WHEN THEY ARE AVAILABLE TO US. WE WILL OBTAIN SERIAL CARDIAC ENZYMES AND EKGS AND CONTINUE TO MONITOR BLOOD PRESSURES. OTHERWISE, WE WILL FOLLOW-UP WITH AM LABS AND CONTINUE TO MONITOR. TIME SPENT ON CLINICAL ASSESSMENT, REVIWING LABS AND IMAGING, DECISION MAKING, AND DOCUMENTATION GREATER THAN 75 MINUTES. 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, STRIP POLISHER Surgery, Hysterectomy - Family History Family Medical History: Diabetes Mellitus, [place], Heart Failure, Hypertension - Social History Does patient currently use any type of tobacco product: Yes (CHEWING TOBACCO) Have you used tobacco products in the last 12 months: Yes Type of Tobacco Use: Smokeless Does any household member use tobacco: No Alcohol Use: None Drug Use: None - Medications Home Medications: GISEL Inhibitors Allergy (Verified 12/01/21 11:35) codeine Allergy (Verified 12/01/21 11:30) hydrocodone Allergy (Verified 12/01/21 11:30) insulin detemir [From Levemir] Allergy (Verified 12/01/21 11:30) Iodinated Contrast Media Allergy (Verified 12/01/21 11:30) iodine Allergy (Verified 12/01/21 11:30) ketorolac [From Toradol] Allergy (Verified 12/01/21 11:30) olmesartan [From Benicar] Allergy (Verified 12/01/21 11:30) Pork/Porcine Containing Products Allergy (Verified 01/05/22 09:13) insulin glargine [From Lantus] Adverse Reaction (Verified 12/01/21 11:30) BETA-BLOCKERS Allergy (Uncoded 12/01/21 11:30) - Review of Systems Constitutional: Weakness Eyes: No Symptoms Reported ENT: No Symptoms Reported Respiratory: See HPI, Shortness of Breath, SOB with Excertion Cardiovascular: No Symptoms Reported Gastrointestinal: No Symptoms Reported Genitourinary: No Symptoms Reported Musculoskeletal: No Symptoms Reported Skin: No Symptoms Reported Neurological: Weakness - Physical Exam Vital Signs: Temperature 97.9 F Pulse Rate 73 Respiratory Rate 18 Blood Pressure [Right Arm] 197/88 Blood Pressure [Left Arm] 152/72 Blood Pressure 168/74 O2 Sat by Pulse Oximetry 94 Oriented: Normal Eyes: Normal Ear: Normal Nose: Normal Throat: Normal Respiratory: Diminished Throughout Cardiovascular: Edema (BLE 1+ PITTING EDEMA ) : Normal Auscultation: Bowel Sounds: Normal Palpation: Normal Tenderness: Normal Skin: Normal Musculoskeletal: Normal Psychiatric: Normal Mood Description: Calm Affect: Normal Speech Pattern: Clear - Allergies Allergies/Adverse Reactions: Allergies Allergy/AdvReac Type Severity Reaction Status Date / Time GISEL Inhibitors Allergy Verified 12/01/21 11:35 codeine Allergy Verified 12/01/21 11:30 hydrocodone Allergy Verified 12/01/21 11:30 insulin detemir Allergy Verified 12/01/21 11:30 [From Levemir] Iodinated Contrast Media Allergy Verified 12/01/21 11:30 iodine Allergy Verified 12/01/21 11:30 ketorolac [From Toradol] Allergy Verified 12/01/21 11:30 olmesartan [From Benicar] Allergy Verified 12/01/21 11:30 Pork/Porcine Containing Allergy Verified 01/05/22 09:13 Products insulin glargine AdvReac Verified 12/01/21 11:30 [From Lantus] BETA-BLOCKERS Allergy Uncoded 12/01/21 11:30
--- NOTE | 2022-04-21 09:30 | RAD ---
HISTORYPICCSTUDYPortable AP [id number]/22/2022FINDINGSA right subclavian surgical catheter is present extending through the SVC and terminating at or near the cavoatrial junction. The heart is enlarged with diffuse bilateral infiltrates suggesting pneumonia or edema. No pneumothorax seen.IMPRESSIONCentral line placement/position as noted.Electronically signed by: WAGNER NIXON (Apr 21, 2022 09:28:48)
--- NOTE | 2022-04-21 09:33 | DR.OPNOTE ---
OP NOTE Pre-Op Diagnosis: Malignant hypertension, RLL pneumonia needs central venous access Post-Op Diagnosis: same Procedure Date Date Of Procedure: 04/21/22 Procedure: PROCEDURE : placement left subclavian vein Central Lumen catheter with significant kinking. Changed to right subclavian vein Central lumen catheter placement NARRATIVE: The patient was in the ICU and placed in the Supine position. The left chest and left neck prepped and draped in sterile fashion. The skin under left clavicle infiltrated one was 1 % Xylocaine . 16 gauge needle use to puncture the left subclavian vein with good return of blood and good placement of the wire. Incision made over the guide wire and dilator placed over the guide wire into the left subclavian vein. Dilator did not go easily. Dilator removed and the catheter placed over this with some difficulty. Wire removed and the catheter secured to the skin and all ports aspirated of blood and flushed but it was difficult through two of the three ports . X-ray showed kinking in the subclavian area, therefore this was removed. Patient maintained in Trendelenburg position and the right chest prepped and draped in sterile fashion. The skin underlying the right clavicle infiltrated with 1 % Xylocaine . 16 gauge needle used to puncture the right subclavian vein and guide wire placed without difficulty. Incision made over the guide at the the skin Edge and dilator placed over the guide wire with no difficulty. Dilator removed and the catheter placed over the guide wire without difficulty. Wire removed. All ports aspirated of blood and flushed with heparinized saline . Catheter secured to the skin with interrupted silk sutures. Post procedure chest x-ray showed pneumonia of the right lower lobe pneumonia and good placement of the catheter going into the atrium with n o pneumothorax. Type of Anesthesia: Local (1 % Xylocaine ) EBL: minimal Complications:: difficulty placing left subclavian vein, removed and placed in right subclavian vein Needle/Sponge Count:: correct Disposition/Condition: Pt. tolerated procedure without difficulty. Post procedure CXR showed good placement right subclavian vein into right atrium, no pneuothorax.
[2022-04-21] MEDS ORDERED: MORPHINE SULFATE INJ 2 MG INJ ONE (09:37)
[2022-04-21] MEDS: MORPHINE SULFATE INJ 2 MG INJ IVP PRN (09:38)
[2022-04-21] MEDS: LASIX IVP SCH ×2 (09:38→16:20)
[2022-04-21 09:59] LABS: MEAN PLATELET VOLUME 8.8 fL (7.4-11.0)
[2022-04-21 10:03] LABS: BASOPHILS # (AUTO) 0.1 X10^3/uL (0.0-0.1); BASOPHILS % (AUTO) 0.8 % (0.2-1.0); EOSINOPHILS # (AUTO) 0.1 x10^3/uL (0.0-0.2); EOSINOPHILS % (AUTO) 0.9 % (0.9-2.9); HEMATOCRIT 29.1 % (36.0-47.0); HEMOGLOBIN 9.8 g/dL (12.0-16.0); LYMPHOCYTES # (AUTO) 1.4 X10^3/uL (1.3-2.9); LYMPHOCYTES % (AUTO) 20.6 % (21.0-51.0); MEAN CORPUSCULAR HEMOGLOBIN 27.7 pg (27.0-34.0); MEAN CORPUSCULAR HGB CONC 33.7 g/dL (33.0-35.0); MONOCYTES # (AUTO) 0.7 x10^3/uL (0.3-0.8); MONOCYTES % (AUTO) 10.2 % (0.0-13.0); NEUTROPHILS # (AUTO) 4.7 x10^3/uL (2.2-4.8); NEUTROPHILS % (AUTO) 67.5 % (42.0-75.0); RED BLOOD COUNT 3.55 X10^6/uL (3.5-5.4); RED CELL DISTRIBUTION WIDTH 17.1 % (11.6-16.5); WHITE BLOOD COUNT 6.9 X10^3/uL (3.6-10.0)
[2022-04-21 10:14] LABS: ALBUMIN 2.4 g/dL (3.4-5.0); CALCIUM 8.5 mg/dL (8.5-10.1); CARBON DIOXIDE 30.3 mmol/L (21-32); COR CA(FOR HYPOALB) 9.8 mg/dL (8.5-10.1); CREATININE 1.93 mg/dL (0.55-1.02); TOTAL PROTEIN 6.4 g/dL (6.4-8.2)
[2022-04-21] MEDS ORDERED: HEPARIN SODIUM INJ 5000 UNITS ONE (11:44)
[2022-04-21] MEDS: HEPARIN SODIUM INJ 5000 UNITS IVP ONE (12:00)
[2022-04-21] MEDS: HEPARIN SODIUM IN D5W 25,000 UNITS/500 ML BAG IV PRN (12:00)
[2022-04-21] MEDS: APRESOLINE TAB 25 MG PO SCH ×2 (13:12→21:21)
[2022-04-21] MEDS: CATAPRES TAB 0.1 MG PO SCH ×2 (13:12→21:21)
[2022-04-21] MEDS ORDERED: CARDIZEM CD 180 MG 24-HR PO SCH (16:00)
[2022-04-21] MEDS ORDERED: LASIX IVP ONE ×2 (16:16→21:00)
[2022-04-21] MEDS: COLACE CAP 100 MG PO PRN (20:23)
[2022-04-22] MEDS: NITROGLYCERIN IV PREMIX 50 MG 50 MG/250 ML BAG IV PRN (03:08)
[2022-04-22] MEDS: APRESOLINE TAB 25 MG PO SCH ×3 (05:27→21:00)
[2022-04-22] MEDS: CATAPRES TAB 0.1 MG PO SCH ×3 (05:28→21:00)
[2022-04-22] MEDS: NovoLIN R (or HumuLIN R) SUBCUT PRN ×4 (05:40→20:12)
[2022-04-22 06:22] LABS: BASOPHILS # (AUTO) 0.1 X10^3/uL (0.0-0.1); BASOPHILS % (AUTO) 1.3 % (0.2-1.0); EOSINOPHILS # (AUTO) 0.1 x10^3/uL (0.0-0.2); HEMATOCRIT 24.8 % (36.0-47.0); HEMOGLOBIN 8.4 g/dL (12.0-16.0); LYMPHOCYTES # (AUTO) 1.3 X10^3/uL (1.3-2.9); MEAN CORPUSCULAR HEMOGLOBIN 26.6 pg (27.0-34.0); MEAN CORPUSCULAR HGB CONC 33.7 g/dL (33.0-35.0); MEAN CORPUSCULAR VOLUME 78.8 fL (80.0-100.0); MEAN PLATELET VOLUME 8.5 fL (7.4-11.0); MONOCYTES # (AUTO) 0.6 x10^3/uL (0.3-0.8); MONOCYTES % (AUTO) 10.3 % (0.0-13.0); NEUTROPHILS % (AUTO) 65.4 % (42.0-75.0); RED BLOOD COUNT 3.15 X10^6/uL (3.5-5.4); RED CELL DISTRIBUTION WIDTH 16.8 % (11.6-16.5); WHITE BLOOD COUNT 6.1 X10^3/uL (3.6-10.0)
--- NOTE | 2022-04-22 06:33 | RAD ---
HISTORYSOB SX;; OVARIAN CYST, PARTIAL HYSTERECTOMY, GB, HTN, CHF, DMSTUDYCHEST, 1 [id number]/23/2022FINDINGSStable cardiomegaly. Unchanged right subclavian CVC. Hazy bibasilar opacities and bilateral pleural effusions not significantly changed. No visible pneumothorax. Indistinct pulmonary vasculature.IMPRESSIONNo significant interval change. Evidence of CHF.Electronically signed by: Tommy Hightower (Apr 22, 2022 06:32:14)
[2022-04-22 06:45] LABS: ALBUMIN 1.9 g/dL (3.4-5.0); CALCIUM 8.3 mg/dL (8.5-10.1); CARBON DIOXIDE 28.7 mmol/L (21-32); CREATININE 1.95 mg/dL (0.55-1.02); TOTAL PROTEIN 5.9 g/dL (6.4-8.2)
[2022-04-22] MEDS: CARDIZEM CD 240 MG 24-HR PO SCH (09:13)
[2022-04-22] MEDS: LASIX IVP SCH ×2 (09:13→16:40)
[2022-04-22] MEDS: PLAVIX PO SCH (09:14)
[2022-04-22] MEDS: MORPHINE SULFATE INJ 2 MG INJ IVP PRN (09:24)
[2022-04-22] MEDS: HEPARIN SODIUM IN D5W 25,000 UNITS/500 ML BAG IV PRN (12:48)
[2022-04-22] MEDS ORDERED: CRESTOR TAB 10 MG PO ONE (19:45)
[2022-04-22] MEDS: CRESTOR TAB 10 MG PO SCH (20:12)
[2022-04-22] MEDS: COLACE CAP 100 MG PO PRN (20:12)
[2022-04-23] MEDS ORDERED: ROBITUSSIN DM ONE (00:05)
[2022-04-23] MEDS: ROBITUSSIN DM PO PRN ×2 (00:10→05:35)
[2022-04-23 05:18] LABS: BASOPHILS % (AUTO) 0.8 % (0.2-1.0); EOSINOPHILS # (AUTO) 0.1 x10^3/uL (0.0-0.2); EOSINOPHILS % (AUTO) 1.5 % (0.9-2.9); HEMOGLOBIN 7.8 g/dL (12.0-16.0); LYMPHOCYTES # (AUTO) 1.4 X10^3/uL (1.3-2.9); LYMPHOCYTES % (AUTO) 23.7 % (21.0-51.0); MEAN CORPUSCULAR HEMOGLOBIN 26.5 pg (27.0-34.0); MEAN CORPUSCULAR VOLUME 78.1 fL (80.0-100.0); MEAN PLATELET VOLUME 8.7 fL (7.4-11.0); MONOCYTES # (AUTO) 0.7 x10^3/uL (0.3-0.8); MONOCYTES % (AUTO) 12.5 % (0.0-13.0); NEUTROPHILS # (AUTO) 3.6 x10^3/uL (2.2-4.8); NEUTROPHILS % (AUTO) 61.5 % (42.0-75.0); RED BLOOD COUNT 2.94 X10^6/uL (3.5-5.4); RED CELL DISTRIBUTION WIDTH 16.8 % (11.6-16.5); WHITE BLOOD COUNT 5.8 X10^3/uL (3.6-10.0)
[2022-04-23] MEDS: CATAPRES TAB 0.1 MG PO SCH ×3 (05:44→21:31)
[2022-04-23] MEDS: APRESOLINE TAB 25 MG PO SCH ×3 (05:44→21:32)
[2022-04-23 05:50] LABS: ALBUMIN 1.9 g/dL (3.4-5.0); CALCIUM 8.3 mg/dL (8.5-10.1); CREATININE 1.85 mg/dL (0.55-1.02); MAGNESIUM 1.7 mg/dL (1.7-2.9); TOTAL PROTEIN 6.1 g/dL (6.4-8.2)
--- NOTE | 2022-04-23 07:11 | RAD ---
HISTORYCHF SOBSTUDYPortable AP [id number]/24/2022, chest CT 04/20/2022FINDINGSStable cardiomegaly with pulmonary vascular distention. Bibasal opacities consistent with atelectasis and pleural effusions. There is no change in position of the right subclavian line extending to the cavoatrial junction.IMPRESSIONNo significant change since 1 day prior.Electronically signed by: WAGNER NIXON (Apr 23, 2022 07:09:40)
[2022-04-23] MEDS: PLAVIX PO SCH (09:11)
[2022-04-23] MEDS: LASIX IVP SCH ×2 (09:11→17:45)
[2022-04-23] MEDS: CARDIZEM CD 240 MG 24-HR PO SCH (09:12)
[2022-04-23] MEDS: NovoLIN R (or HumuLIN R) SUBCUT PRN ×3 (12:19→20:18)
[2022-04-23] MEDS: HEPARIN SODIUM IN D5W 25,000 UNITS/500 ML BAG IV PRN (12:20)
[2022-04-23] MEDS ORDERED: HEPARIN SODIUM INJ 5000 UNITS IVP ONE (13:54)
[2022-04-23] MEDS: MORPHINE SULFATE INJ 2 MG INJ IVP PRN ×2 (14:38→20:15)
[2022-04-23] MEDS ORDERED: NS 250 ML IV 250 ML IV ONE (19:58)
[2022-04-23] MEDS: NITROGLYCERIN IV PREMIX 50 MG 50 MG/250 ML BAG IV PRN (20:10)
[2022-04-23] MEDS: MAGNESIUM SULFATE 1 GRAM/100 mL PREMIX 1 G/100 ML BAG IV PRN ×2 (20:12→22:34)
[2022-04-23] MEDS: CRESTOR TAB 10 MG PO SCH (20:16)
[2022-04-24] MEDS: ROBITUSSIN DM PO PRN (00:31)
[2022-04-24 04:11] LABS: BASOPHILS # (AUTO) 0.1 X10^3/uL (0.0-0.1); BASOPHILS % (AUTO) 1.5 % (0.2-1.0); EOSINOPHILS # (AUTO) 0.1 x10^3/uL (0.0-0.2); EOSINOPHILS % (AUTO) 1.7 % (0.9-2.9); HEMATOCRIT 23.6 % (36.0-47.0); LYMPHOCYTES # (AUTO) 1.4 X10^3/uL (1.3-2.9); LYMPHOCYTES % (AUTO) 27.4 % (21.0-51.0); MEAN CORPUSCULAR HEMOGLOBIN 26.4 pg (27.0-34.0); MEAN CORPUSCULAR HGB CONC 34.1 g/dL (33.0-35.0); MEAN CORPUSCULAR VOLUME 77.3 fL (80.0-100.0); MEAN PLATELET VOLUME 8.3 fL (7.4-11.0); MONOCYTES # (AUTO) 0.5 x10^3/uL (0.3-0.8); NEUTROPHILS # (AUTO) 3.1 x10^3/uL (2.2-4.8); NEUTROPHILS % (AUTO) 59.4 % (42.0-75.0); RED BLOOD COUNT 3.05 X10^6/uL (3.5-5.4); RED CELL DISTRIBUTION WIDTH 17.1 % (11.6-16.5); WHITE BLOOD COUNT 5.2 X10^3/uL (3.6-10.0)
[2022-04-24 04:19] LABS: CALCIUM 8.1 mg/dL (8.5-10.1); COR CA(FOR HYPOALB) 9.7 mg/dL (8.5-10.1); CREATININE 1.89 mg/dL (0.55-1.02); MAGNESIUM 1.9 mg/dL (1.7-2.9); TOTAL PROTEIN 6.2 g/dL (6.4-8.2)
[2022-04-24] MEDS: APRESOLINE TAB 25 MG PO SCH ×3 (05:29→21:29)
[2022-04-24] MEDS: CATAPRES TAB 0.1 MG PO SCH ×3 (05:30→21:28)
[2022-04-24] MEDS: NovoLIN R (or HumuLIN R) SUBCUT PRN ×4 (05:31→21:43)
[2022-04-24] MEDS: MAGNESIUM SULFATE 1 GRAM/100 mL PREMIX 1 G/100 ML BAG IV PRN ×3 (05:33→08:20)
--- NOTE | 2022-04-24 06:18 | RAD ---
HISTORYCHF; HYPOXIA; SOB Relevant Clinical InformationSTUDYCHEST, 1 [id number]/25/2022FINDINGSThe trachea is midline. A right central line tip in distal SVC. The cardiac silhouette is unremarkable. Bibasilar opacities consistent with atelectasis and small pleural effusions unchanged. The bony thorax is unremarkable.IMPRESSIONStable portable chest.Electronically signed by: Martin Lewis (Apr 24, 2022 06:16:41)
[2022-04-24] MEDS: LASIX IVP SCH ×2 (08:21→18:18)
[2022-04-24] MEDS: PLAVIX PO SCH (08:21)
[2022-04-24] MEDS: CARDIZEM CD 240 MG 24-HR PO SCH (08:21)
[2022-04-24 09:00] LABS: ABG BASE EXCESS 6.2 mmol/L (-2.0-2.0)
[2022-04-24 09:01] LABS: ABG ALLEN TEST POS; ABG HCO3 31.8 mmol/L (22-26)
[2022-04-24] MEDS: MILK OF MAGNESIA PO SCH ×2 (09:33→21:28)
[2022-04-24] MEDS: HEPARIN SODIUM IN D5W 25,000 UNITS/500 ML BAG IV PRN (14:21)
[2022-04-24] MEDS ORDERED: NS 100 ML IV 100 ML ONE (15:49)
[2022-04-24] MEDS ORDERED: ZANAFLEX PO PRN (17:32)
[2022-04-24 17:34] LABS: HEMATOCRIT 26.6 % (36.0-47.0); HEMOGLOBIN 8.9 g/dL (12.0-16.0)
[2022-04-24] MEDS: NS 1,000 ML IV 1,000 ML IV SCH ×2 (18:20→22:15)
[2022-04-24] MEDS: MORPHINE SULFATE INJ 2 MG INJ IVP PRN (20:05)
[2022-04-24] MEDS: TRADJENTA PO SCH (20:12)
[2022-04-24] MEDS: CRESTOR TAB 10 MG PO SCH (21:28)
[2022-04-25] MEDS: ROBITUSSIN DM PO PRN (02:25)
[2022-04-25] MEDS: CATAPRES TAB 0.1 MG PO SCH ×3 (05:00→21:11)
[2022-04-25] MEDS: APRESOLINE TAB 25 MG PO SCH ×3 (05:00→21:12)
[2022-04-25] MEDS: ULTRAM PO PRN ×2 (05:13→21:22)
[2022-04-25] MEDS: NovoLIN R (or HumuLIN R) SUBCUT PRN ×4 (05:43→21:14)
[2022-04-25 06:19] LABS: BASOPHILS % (AUTO) 0.8 % (0.2-1.0); EOSINOPHILS # (AUTO) 0.1 x10^3/uL (0.0-0.2); EOSINOPHILS % (AUTO) 1.8 % (0.9-2.9); HEMATOCRIT 24.4 % (36.0-47.0); HEMOGLOBIN 8.2 g/dL (12.0-16.0); LYMPHOCYTES # (AUTO) 1.2 X10^3/uL (1.3-2.9); MEAN CORPUSCULAR HEMOGLOBIN 26.8 pg (27.0-34.0); MEAN CORPUSCULAR HGB CONC 33.8 g/dL (33.0-35.0); MEAN CORPUSCULAR VOLUME 79.3 fL (80.0-100.0); MEAN PLATELET VOLUME 8.6 fL (7.4-11.0); MONOCYTES # (AUTO) 0.5 x10^3/uL (0.3-0.8); MONOCYTES % (AUTO) 9.6 % (0.0-13.0); NEUTROPHILS # (AUTO) 3.2 x10^3/uL (2.2-4.8); NEUTROPHILS % (AUTO) 64.8 % (42.0-75.0); RED BLOOD COUNT 3.07 X10^6/uL (3.5-5.4); RED CELL DISTRIBUTION WIDTH 16.9 % (11.6-16.5)
--- NOTE | 2022-04-25 06:29 | RAD ---
HISTORYShortness of breathSTUDYChest AP [id number]/26/2022FINDINGSTher e is a right-sided central line with its tip in the expected position of the superior vena cava. Heart is minimally enlarged. No congestive heart failure is noted. No acute alveolar infiltrates or pleural effusions are identified. Bony thorax is unremarkable.IMPRESSIONNo significant change from the prior examinationElectronically signed by: CINDY WHELAN (Apr 25, 2022 06:28:14)
[2022-04-25 06:43] LABS: CALCIUM 8.4 mg/dL (8.5-10.1); CARBON DIOXIDE 30.4 mmol/L (21-32); CREATININE 1.94 mg/dL (0.55-1.02); TOTAL PROTEIN 6.4 g/dL (6.4-8.2)
[2022-04-25] MEDS: PLAVIX PO SCH (08:27)
[2022-04-25] MEDS: MILK OF MAGNESIA PO SCH ×2 (08:27→21:13)
[2022-04-25] MEDS: LASIX IVP SCH ×2 (08:27→16:26)
[2022-04-25] MEDS: TRADJENTA PO SCH ×2 (08:27→10:48)
[2022-04-25] MEDS ORDERED: DILTIAZEM HCL 300 MG PO SCH (09:00)
[2022-04-25] MEDS: CARDIZEM CD 120 MG 24-HR PO SCH (10:28)
[2022-04-25] MEDS: CARDIZEM CD 180 MG 24-HR PO SCH (10:28)
[2022-04-25] MEDS: HEPARIN SODIUM IN D5W 25,000 UNITS/500 ML BAG IV PRN (10:49)
[2022-04-25] MEDS: PROCARDIA XL PO SCH (13:58)
[2022-04-25] MEDS: NS 1,000 ML IV 1,000 ML IV SCH (17:11)
[2022-04-25] MEDS: CRESTOR TAB 10 MG PO SCH (21:11)
[2022-04-26 01:14] LABS: BASOPHILS % (AUTO) 0.9 % (0.2-1.0); EOSINOPHILS # (AUTO) 0.1 x10^3/uL (0.0-0.2); HEMATOCRIT 25.3 % (36.0-47.0); HEMOGLOBIN 8.6 g/dL (12.0-16.0); LYMPHOCYTES # (AUTO) 1.3 X10^3/uL (1.3-2.9); LYMPHOCYTES % (AUTO) 26.2 % (21.0-51.0); MEAN CORPUSCULAR HEMOGLOBIN 26.5 pg (27.0-34.0); MEAN CORPUSCULAR HGB CONC 33.8 g/dL (33.0-35.0); MEAN CORPUSCULAR VOLUME 78.4 fL (80.0-100.0); MEAN PLATELET VOLUME 8.5 fL (7.4-11.0); MONOCYTES # (AUTO) 0.4 x10^3/uL (0.3-0.8); MONOCYTES % (AUTO) 8.4 % (0.0-13.0); NEUTROPHILS % (AUTO) 62.5 % (42.0-75.0); RED BLOOD COUNT 3.22 X10^6/uL (3.5-5.4); RED CELL DISTRIBUTION WIDTH 17.4 % (11.6-16.5); WHITE BLOOD COUNT 4.8 X10^3/uL (3.6-10.0)
[2022-04-26 01:31] LABS: CALCIUM 8.4 mg/dL (8.5-10.1); CARBON DIOXIDE 32.8 mmol/L (21-32); CREATININE 2.13 mg/dL (0.55-1.02); TOTAL PROTEIN 6.6 g/dL (6.4-8.2)
[2022-04-26] MEDS: APRESOLINE TAB 25 MG PO SCH ×3 (05:28→22:14)
[2022-04-26] MEDS: CATAPRES TAB 0.1 MG PO SCH ×2 (05:28→13:22)
--- NOTE | 2022-04-26 05:50 | RAD ---
HISTORYSOB Relevant Clinical InformationSTUDYCHEST, 1 [id number]/27/2022FINDINGSThe trachea is midline. Right-sided central line with tip in the distal SVC. The cardiac silhouette is stable. There is blunting of the right costophrenic angle due to small pleural effusion. There is patchy infiltrate or subsegmental atelectasis within the right lung base.. The bony thorax is unremarkable.IMPRESSIONSmall right pleural effusion with patchy right basilar subsegmental atelectasis and/or infiltrate new from previous 04/25/2022. Is.Electronically signed by: Martin Lewis (Apr 26, 2022 05:49:21)
[2022-04-26] MEDS: ZOFRAN INJ 4 MG VIAL IVP PRN (06:39)
[2022-04-26] MEDS: CARDIZEM CD 120 MG 24-HR PO SCH (08:27)
[2022-04-26] MEDS: PLAVIX PO SCH (08:27)
[2022-04-26] MEDS: PROCARDIA XL PO SCH (08:28)
[2022-04-26] MEDS: CARDIZEM CD 180 MG 24-HR PO SCH (08:28)
[2022-04-26] MEDS: LASIX IVP SCH ×2 (08:29→16:24)
[2022-04-26] MEDS: MILK OF MAGNESIA PO SCH ×2 (08:29→20:43)
[2022-04-26] MEDS: TRADJENTA PO SCH ×2 (08:29→08:36)
[2022-04-26] MEDS: HEPARIN SODIUM IN D5W 25,000 UNITS/500 ML BAG IV PRN (10:23)
[2022-04-26] MEDS: NovoLIN R (or HumuLIN R) SUBCUT PRN ×3 (11:47→20:58)
[2022-04-26] MEDS ORDERED: LASIX IVP ONE (13:00)
[2022-04-26] MEDS: PROTONIX INJ 40 MG VIAL IVP SCH ×2 (13:21→20:46)
[2022-04-26] MEDS: ELIQUIS PO SCH ×2 (13:22→20:43)
[2022-04-26] MEDS: MORPHINE SULFATE INJ 2 MG INJ IVP PRN ×2 (14:43→20:47)
[2022-04-26] MEDS ORDERED: SNACK - Diabetic Appropriate PO SCH (20:00)
[2022-04-26] MEDS: CRESTOR TAB 10 MG PO SCH (20:43)
[2022-04-26] MEDS: CATAPRES TAB 0.2 MG PO SCH (20:43)
[2022-04-26] MEDS ORDERED: CATAPRES TAB 0.2 MG PO SCH (22:00)
[2022-04-27 00:17] LABS: BILIRUBIN,URINE NEGATIVE (NEGATIVE); BLOOD/HEMOGLOBIN,URINE 5+ (NEGATIVE); GLUCOSE, URINE 2+ (NEGATIVE); KETONES,URINE NEGATIVE (NEGATIVE); LEUKOCYTE ESTERASE ,URINE 2+ (NEGATIVE); NITRITES,URINE NEGATIVE (NEGATIVE); PROTEIN,URINE 4+ (NEGATIVE); UROBILINOGEN,URINE NORMAL (NORMAL)
[2022-04-27 00:27] LABS: APPEARANCE,URINE CLOUDY (CLEAR); BACTERIA,URINE TRACE /HPF (NEGATIVE); COLOR,URINE YELLOW (YELLOW); RBC,URINE TNTC /HPF (0-3); SQUAMOUS EPITHELIAL CELL,UR RARE /HPF (NEGATIVE)
[2022-04-27 00:28] LABS: YEAST,URINE MODERATE /HPF (NEGATIVE)
[2022-04-27] MEDS: ZOFRAN INJ 4 MG VIAL IVP PRN ×2 (03:25→13:33)
[2022-04-27 05:54] LABS: BASOPHILS % (AUTO) 0.7 % (0.2-1.0); EOSINOPHILS # (AUTO) 0.1 x10^3/uL (0.0-0.2); EOSINOPHILS % (AUTO) 2.2 % (0.9-2.9); HEMATOCRIT 24.1 % (36.0-47.0); HEMOGLOBIN 8.3 g/dL (12.0-16.0); LYMPHOCYTES # (AUTO) 0.8 X10^3/uL (1.3-2.9); LYMPHOCYTES % (AUTO) 15.2 % (21.0-51.0); MEAN CORPUSCULAR HEMOGLOBIN 27.4 pg (27.0-34.0); MEAN CORPUSCULAR HGB CONC 34.5 g/dL (33.0-35.0); MEAN CORPUSCULAR VOLUME 79.6 fL (80.0-100.0); MEAN PLATELET VOLUME 8.7 fL (7.4-11.0); MONOCYTES # (AUTO) 0.6 x10^3/uL (0.3-0.8); MONOCYTES % (AUTO) 11.1 % (0.0-13.0); NEUTROPHILS # (AUTO) 3.8 x10^3/uL (2.2-4.8); NEUTROPHILS % (AUTO) 70.8 % (42.0-75.0); RED BLOOD COUNT 3.03 X10^6/uL (3.5-5.4); RED CELL DISTRIBUTION WIDTH 17.4 % (11.6-16.5); WHITE BLOOD COUNT 5.4 X10^3/uL (3.6-10.0)
[2022-04-27] MEDS: HumuLIN 70/30 (NovoLIN 70/30) SC SCH ×2 (06:08→16:24)
[2022-04-27] MEDS: APRESOLINE TAB 25 MG PO SCH ×3 (06:08→21:16)
[2022-04-27 06:11] LABS: ALBUMIN 2.2 g/dL (3.4-5.0); CALCIUM 8.7 mg/dL (8.5-10.1); CARBON DIOXIDE 30.2 mmol/L (21-32); COR CA(FOR HYPOALB) 10.1 mg/dL (8.5-10.1); CREATININE 2.56 mg/dL (0.55-1.02)
--- NOTE | 2022-04-27 08:05 | RAD ---
HISTORYSOBSTUDYCHEST, 1 [id number]/28/2022.TECHNIQUEAP view of the chestFINDINGSThe cardiac silhouette is stably enlarged. Mediastinal contours appear stable. Right subclavian central line is in good position. No significant change in bilateral airspace and interstitial opacities, worse on the right. Suspect small to moderate bilateral pleural effusions. No pneumothorax. Soft tissue attenuation limits evaluation.IMPRESSIONNo significant change compared to prior radiograph.Electronically signed by: Luther Rachel (Apr 27, 2022 08:03:35)
[2022-04-27] MEDS: CATAPRES TAB 0.2 MG PO SCH ×2 (08:46→21:15)
[2022-04-27] MEDS: CARDIZEM CD 180 MG 24-HR PO SCH (08:46)
[2022-04-27] MEDS: CARDIZEM CD 120 MG 24-HR PO SCH (08:46)
[2022-04-27] MEDS: ROCEPHIN VIAL 1 GRAM 1 G in NS 100 ML IV 100 ML IV SCH ×2 (08:46→09:34)
[2022-04-27] MEDS: MILK OF MAGNESIA PO SCH ×2 (08:47→21:14)
[2022-04-27] MEDS: LASIX IVP SCH ×2 (08:47→16:24)
[2022-04-27] MEDS: ELIQUIS PO SCH ×2 (08:47→21:15)
[2022-04-27] MEDS: PLAVIX PO SCH (08:48)
[2022-04-27] MEDS: PROTONIX INJ 40 MG VIAL IVP SCH ×2 (08:49→21:13)
[2022-04-27] MEDS: TRADJENTA PO SCH (08:49)
[2022-04-27] MEDS: MORPHINE SULFATE INJ 2 MG INJ IVP PRN (08:50)
[2022-04-27] MEDS ORDERED: PROCARDIA XL PO SCH (09:00)
[2022-04-27] MEDS: NovoLIN R (or HumuLIN R) SUBCUT PRN ×2 (11:35→16:20)
[2022-04-27] MEDS ORDERED: PHENERGAN INJ 25 MG IM PRN (14:34)
[2022-04-27] MEDS ORDERED: PEPCID 20 MG VIAL IVP ONE (14:42)
[2022-04-27 21:03] VITALS: BP 153/67
[2022-04-27] MEDS: CRESTOR TAB 10 MG PO SCH (21:14)
== END 2022-04-27 21:30 | disposition short-term general hospital (02) | DRG 291 ==
LOC: ER 13:06 → ICU 22:51
PROVIDERS: ADMIT Internal Medicine; ATTEND Internal Medicine
DX: I11.0 Hypertensive heart disease with heart failure; F41.8 Other specified anxiety disorders; Z91.041 Radiographic dye allergy status; J90 Pleural effusion, not elsewhere classified; I48.91 Unspecified atrial fibrillation; R74.8 Abnormal levels of other serum enzymes; I20.9 Angina pectoris, unspecified; J96.02 Acute respiratory failure with hypercapnia; N28.9 Disorder of kidney and ureter, unspecified; R63.5 Abnormal weight gain; J98.11 Atelectasis; I16.0 Hypertensive urgency; Z86.16 Personal history of COVID-19; I50.9 Heart failure, unspecified; E11.9 Type 2 diabetes mellitus without complications; R60.0 Localized edema; Z72.0 Tobacco use; R26.89 Other abnormalities of gait and mobility; M19.90 Unspecified osteoarthritis, unspecified site; Z20.822 Contact with and (suspected) exposure to COVID-19; N39.0 Urinary tract infection, site not specified; Z79.01 Long term (current) use of anticoagulants; J96.01 Acute respiratory failure with hypoxia

== ENCOUNTER 2022-05-27 07:54 | Inpatient (IN) ==
[2022-05-27 08:06] LABS: ABG BASE EXCESS 7.7 mmol/L (-2.0-2.0)
[2022-05-27 08:08] LABS: ABG ALLEN TEST POS; ABG HCO3 34.1 mmol/L (22-26)
[2022-05-27] MEDS ORDERED: XOPENEX 1.25 MG/3 ML NEBULE NEB ONE ×2 (08:10→08:18)
[2022-05-27 08:14] LABS: BASOPHILS # (AUTO) 0.1 X10^3/uL (0.0-0.1); BASOPHILS % (AUTO) 1.3 % (0.2-1.0); EOSINOPHILS # (AUTO) 0.1 x10^3/uL (0.0-0.2); EOSINOPHILS % (AUTO) 0.6 % (0.9-2.9); HEMOGLOBIN 10.1 g/dL (12.0-16.0); LYMPHOCYTES # (AUTO) 2.6 X10^3/uL (1.3-2.9); LYMPHOCYTES % (AUTO) 31.1 % (21.0-51.0); MEAN CORPUSCULAR HEMOGLOBIN 24.9 pg (27.0-34.0); MEAN CORPUSCULAR HGB CONC 32.5 g/dL (33.0-35.0); MEAN CORPUSCULAR VOLUME 76.5 fL (80.0-100.0); MEAN PLATELET VOLUME 8.3 fL (7.4-11.0); MONOCYTES # (AUTO) 0.4 x10^3/uL (0.3-0.8); MONOCYTES % (AUTO) 4.7 % (0.0-13.0); NEUTROPHILS # (AUTO) 5.3 x10^3/uL (2.2-4.8); NEUTROPHILS % (AUTO) 62.3 % (42.0-75.0); RED BLOOD COUNT 4.05 X10^6/uL (3.5-5.4); RED CELL DISTRIBUTION WIDTH 18.2 % (11.6-16.5); WHITE BLOOD COUNT 8.5 X10^3/uL (3.6-10.0)
[2022-05-27] MEDS ORDERED: LASIX ONE (08:17)
--- NOTE | 2022-05-27 08:18 | DR.SOBA ---
HPI Time Seen Time Seen by Provider: 05/27/22 08:08 Primary Care Physician Primary Care Physician: IRA Piper HPI Comment HPI Comment: A 67 y/o female presenting with worsening SOB over the course of several days. She denies chest pain, diaphoresis or palpitations. She admits to nausea. She has orthopnea. She was seen by the RUG INSPECTOR on 05/24/22 and states she was told that sh'e building up fluid in her lungs. Her dyspnea worsened this morning. 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 Family History Family Medical History: Diabetes Mellitus, [place], Heart Failure and Hypertension Social History Do you use any recreational Drugs:: No ROS Review of Systems Constitutional: No Symptoms Reported Eyes: No Symptoms Reported ENTM: No Symptoms Reported Respiratoy: Short of Breath Cardiovascular: No Symptoms Reported Gastrointestinal/Abdominal: No Symptoms Reported Genitourinary: No Symptoms Reported Neurological: No Symptoms Reported Musculoskeletal: No Symptoms Reported Integumentary: No Symptoms Reported Hematologic/Lymphatic: No Symptoms Reported Endocrine: No Symptoms Reported Psychiatric: No Symptoms Reported All Other Systems: Reviewed and Negative PE Vital Signs Vitals: Pulse Rate [Left Radial] 72 Pulse Rate 74 Respiratory Rate 20 Blood Pressure [Right Arm] 231/95 Blood Pressure [Left Arm] 152/72 Blood Pressure 203/88 O2 Sat by Pulse Oximetry 100 General Limitations: No Limitations General Appearance: Alert and In No Apparent Distress Head Head Exam: Normal Inspection, Atraumatic and Normocephalic Eyes Eye exam: Normal Appearance and EOMI ENT ENT Exam: Normal Exam, Normal Oropharynx, Normal External Ear Exam and Mucous Membranes Moist Neck Neck Exam: Normal Inspection, Full ROM and Trachea Midline Chest Chest Inspection: Normal Inspection and Symmetric Chest Wall Rise Respiratory Respiratory Exam: Bilateral: Rales, Bilateral: Rhonchi and Bilateral: Decreased Breath Sounds Cardiovascular Cardiovascular Exam: Regular Rate, Normal Rhythm, Normal Heart Sounds, +S1 and +S2 Abdominal Exam Abdominal Exam: Normal Inspection, Normal Bowel Sounds and Soft Extremities Extremities Exam: Edema (1+ b/l.) Back Back Exam: Normal Inspection and Full ROM Neurologic Neurological Exam: Alert and Oriented X3 Psychiatric Psychiatric Exam: Normal Affect and Normal Mood Skin Skin Exam: Dry, Intact and Normal Color COURSE Treatment Treatment: her test results were reviewed with her and her daughter. I spoke to them and recommended admission for continued treatment. She was in agreement with this. I spoke with on-call provider, Dr. Meehan, who agrees with admission proposal and treatment regimen discussed. Reevaluation 1st: Improved Education/Counseling Education/Counseling: Patient, Family, Education and Counseling Educated On: Treatment, Diagnosis, Prognosis and Needs for Follow Up ROR Labs Reviewed Result Diagrams: 05/27/22 08:00 05/27/22 08:00 Laboratory: WBC 8.5 X10^3/uL (3.6-10.0) 05/27/22 08:00 RBC 4.05 X10^6/uL (3.5-5.4) 05/27/22 08:00 Hgb 10.1 g/dL (12.0-16.0) L 05/27/22 08:00 Hct 31.0 % (36.0-47.0) L 05/27/22 08:00 MCV 76.5 fL (80.0-100.0) L 05/27/22 08:00 MCH 24.9 pg (27.0-34.0) L 05/27/22 08:00 MCHC 32.5 g/dL (33.0-35.0) L 05/27/22 08:00 RDW 18.2 % (11.6-16.5) H 05/27/22 08:00 Plt Count 321 X10^3/uL (150.0-450.0) 05/27/22 08:00 MPV 8.3 fL (7.4-11.0) 05/27/22 08:00 Neut % (Auto) 62.3 % (42.0-75.0) 05/27/22 08:00 Lymph % (Auto) 31.1 % (21.0-51.0) 05/27/22 08:00 [place] % (Auto) 4.7 % (0.0-13.0) 05/27/22 08:00 Eos % (Auto) 0.6 % (0.9-2.9) L 05/27/22 08:00 Baso % (Auto) 1.3 % (0.2-1.0) H 05/27/22 08:00 Neut # (Auto) 5.3 x10^3/uL (2.2-4.8) H 05/27/22 08:00 Lymph # (Auto) 2.6 X10^3/uL (1.3-2.9) 05/27/22 08:00 [place] # (Auto) 0.4 x10^3/uL (0.3-0.8) 05/27/22 08:00 Eos # (Auto) 0.1 x10^3/uL (0.0-0.2) 05/27/22 08:00 Baso # (Auto) 0.1 X10^3/uL (0.0-0.1) 05/27/22 08:00 Absolute Nucleated RBC 0.0 /100WBC 05/27/22 08:00 D-Dimer 6.77 ug/ml (0.0-0.57) H 05/27/22 08:00 Sample Site Lrad 05/27/22 07:59 ABG pH 7.400 (7.35-7.45) 05/27/22 07:59 ABG pCO2 55.0 mmHg (35.0-45.0) H* 05/27/22 07:59 ABG pO2 65.0 mmHg (80.0-100.0) L 05/27/22 07:59 ABG HCO3 34.1 mmol/L (22-26) H* 05/27/22 07:59 ABG O2 Saturation 92.0 % (90-100) 05/27/22 07:59 ABG Base Excess 7.7 mmol/L (-2.0-2.0) H 05/27/22 07:59 Jason Test Pos 05/27/22 07:59 A-a Gradient 123.0 mmHg 05/27/22 07:59 FiO2 36.0 05/27/22 07:59 Blood Gas Comments Pt aury well elj 05/27/22 07:59 Sodium 137 mmol/L (136-145) 05/27/22 08:00 Corrected Sodium 141 mmol/L (136-145) 05/27/22 08:00 Potassium 4.3 mmol/L (3.5-5.1) 05/27/22 08:00 Chloride 98 mmol/L (98-107) 05/27/22 08:00 Carbon Dioxide 31.2 mmol/L (21-32) 05/27/22 08:00 BUN 24 mg/dL (7-18) H 05/27/22 08:00 Creatinine 2.14 mg/dL (0.55-1.02) H 05/27/22 08:00 Est GFR (MDRD) Af Amer 30 (>60) L 05/27/22 08:00 Est GFR (MDRD) Non-Af 25 (>60) L 05/27/22 08:00 Glucose 270 mg/dL (65-99) H 05/27/22 08:00 Calcium 8.5 mg/dL (8.5-10.1) 05/27/22 08:00 Creatine Kinase 64 Units/L (26-192) 05/27/22 08:00 Troponin I High Sens 146.1 ng/L (4.0-60.0) H* 05/27/22 08:00 B-Natriuretic Peptide 1040 pg/mL (0-79) H* 05/27/22 08:00 Specimen Type Catherized urine 05/27/22 08:40 Urine Color Pale yellow (YELLOW) 05/27/22 08:40 Urine Appearance Clear (CLEAR) 05/27/22 08:40 Urine pH 7.0 (5.0 - 8.0) 05/27/22 08:40 Ur Specific [place] 1.015 (1.000-1.030) 05/27/22 08:40 Urine Protein 3+ (NEGATIVE) 05/27/22 08:40 Urine Glucose (UA) 3+ (NEGATIVE) 05/27/22 08:40 Urine Ketones Negative (NEGATIVE) 05/27/22 08:40 Urine Blood 4+ (NEGATIVE) 05/27/22 08:40 Urine Nitrite Negative (NEGATIVE) 05/27/22 08:40 Urine Bilirubin Negative (NEGATIVE) 05/27/22 08:40 Urine Urobilinogen Normal (NORMAL) 05/27/22 08:40 Ur Leukocyte Esterase 1+ (NEGATIVE) 05/27/22 08:40 Urine RBC 5-10 /HPF (0-3) A 05/27/22 08:40 Urine WBC 0-2 /HPF (0-5) 05/27/22 08:40 Ur Squamous Epith Cells Rare /HPF (NEGATIVE) 05/27/22 08:40 Urine Bacteria Trace /HPF (NEGATIVE) 05/27/22 08:40 Ur Culture Indicated? No/not indicated 05/27/22 08:40 XRAY XRAY Interpreted by: Self X-ray Results: CXR: moderate cardiomegaly, rachelle B lines are present and noted small b/l pleural effusions. EKG Rate: 98 [place]: Normal Rhythm: NSR Block: None Hypertrophy: None ST: Normal Opioid Opioid Risk Tool Age ([place]ron box if 16-45): No History of Preadolescent Sexual Abuse: No Total: 0 Total Score Risk Category: Low Risk Copyright: [facility] predicting aberrant behaviors Discharge Plan Diagnosis Discharge Problem: Elevated d-dimer, Hypertensive urgency, CKD (chronic kidney disease) stage 4, GFR 15-29 ml/min CHF exacerbation Qualifiers: Heart failure type: unspecified Qualified Code(s): I50.9 - Heart failure, unspecified Uncontrolled type 2 diabetes mellitus Qualifiers: Glycemic state: with hyperglycemia Qualified Code(s): E11.65 - Type 2 diabetes mellitus with hyperglycemia Discharge Plan Patient Disposition: 09 ADMITTED INPATIENT Condition: Stable Prescriptions: No Action Humulin 70/30 U-100 Insulin 100 unit/mL (70-30) Suspension 35 unit SUBCUT BID brimonidine-timolol [Combigan] 0.2-0.5 % Drops 1 drp OPHTHALMIC (EYE) BID tramadol 50 mg Tablet 50 mg PO Q6H PRN fluticasone propionate 50 mcg/actuation [place],Suspension 2 spray INTRANASAL DAILY furosemide 40 mg Tablet 40 mg PO QAM Qty: 30 0RF potassium chloride 10 mEq Capsule, Extended Release 10 meq PO BID Qty: 60 0RF pantoprazole 40 mg tablet,delayed release (DR/EC) 40 mg PO BID Label Comments: TAKE 1 TABLET BY MOUTH TWICE DAILY sennosides [senna] 8.6 mg tablet 1 tab PO QPM diltiazem HCl 300 mg capsule,extended release 24hr 1 cap PO QDAY hydralazine 100 mg tablet 1 tab PO TID clonidine HCl 0.1 mg tablet 1 tab PO TID atorvastatin 20 mg tablet 1 tab PO QPM carvedilol 12.5 mg tablet 1 tab PO BID clopidogrel 75 mg tablet 1 tab PO QDAY ondansetron 8 mg tablet,disintegrating 1 tab PO TID PRN metoclopramide HCl 5 mg tablet 1 tab PO QID gabapentin 300 mg capsule 1 cap PO QDAY Health Concerns: Post Hospitalization: new medications and changes needed to prevent readmission or further decline. Pt educated and given instructions on all concerns. Plan of Treatment: Continue with present treatment and follow up plan. Pt is to keep follow up a ppointment as instructed and take medications as ordered. Orders to Discharge Patient Discharge Orders: Transfer (Routine); Ordered 05/27/22 Ordered By: OSITO MORRIS Follow ups/Referrals Follow ups/Referrals: EARL WARE [Primary Care Provider] - 3 days
[2022-05-27 08:21] LABS: CALCIUM 8.5 mg/dL (8.5-10.1); CARBON DIOXIDE 31.2 mmol/L (21-32); CREATININE 2.14 mg/dL (0.55-1.02)
[2022-05-27] MEDS ORDERED: LASIX IVP ONE (08:22)
--- NOTE | 2022-05-27 08:29 | RAD ---
HISTORYSOB, CHEST TIGHTNESSSTUDYCHEST, 1 [id number]/13/2022FINDINGSLINES AND TUBES: NoneHEART/ PULMONARY VASCULATURE: Heart is enlarged with pulmonary vasculature congestion.LUNGS/ PLEURA: Diffuse mixed interstitial and airspace opacities appear slightly improved from 05/12/2022 exam, though moderate pulmonary opacities remain. No sizable pleural effusion. No pneumothoraxIMPRESSIONFindings of CHF/volume overload with pulmonary edema, improved compared to 05/12/2022 exam.Electronically signed by: Reagan Bey (May 27, 2022 08:27:39)
[2022-05-27 08:52] LABS: BILIRUBIN,URINE NEGATIVE (NEGATIVE); BLOOD/HEMOGLOBIN,URINE 4+ (NEGATIVE); GLUCOSE, URINE 3+ (NEGATIVE); KETONES,URINE NEGATIVE (NEGATIVE); LEUKOCYTE ESTERASE ,URINE 1+ (NEGATIVE); NITRITES,URINE NEGATIVE (NEGATIVE); PROTEIN,URINE 3+ (NEGATIVE); UROBILINOGEN,URINE NORMAL (NORMAL)
[2022-05-27 09:02] LABS: APPEARANCE,URINE CLEAR (CLEAR); COLOR,URINE PALE YELLOW (YELLOW)
[2022-05-27 09:03] LABS: BACTERIA,URINE TRACE /HPF (NEGATIVE); SQUAMOUS EPITHELIAL CELL,UR RARE /HPF (NEGATIVE)
[2022-05-27] MEDS ORDERED: CATAPRES TAB 0.2 MG PO ONE (09:20)
[2022-05-27] MEDS ORDERED: CATAPRES TAB 0.2 MG ONE (09:21)
[2022-05-27] MEDS ORDERED: ELIQUIS PO ONE (09:35)
[2022-05-27] MEDS ORDERED: ELIQUIS ONE (09:41)
[2022-05-27] MEDS ORDERED: DILTIAZEM HCL 300 MG PO SCH ×2 (10:50→12:00)
[2022-05-27] MEDS: NEURONTIN CAP 300 MG PO SCH (11:34)
[2022-05-27] MEDS: PLAVIX PO SCH (11:34)
[2022-05-27 12:22] VITALS: BMI 36.3
[2022-05-27] MEDS: REGLAN TAB 5 MG PO SCH ×3 (13:05→21:00)
[2022-05-27] MEDS: APRESOLINE TAB 25 MG PO SCH ×2 (13:06→21:02)
[2022-05-27] MEDS: CATAPRES TAB 0.1 MG PO SCH ×2 (13:06→22:05)
[2022-05-27] MEDS ORDERED: PATIENT'S HOME MEDICATION (Hydralazine 100 mg tablet) PO SCH (14:00)
[2022-05-27] MEDS: SNACK - Diabetic Appropriate PO SCH (20:50)
[2022-05-27] MEDS: COREG TAB 12.5 MG PO SCH (21:00)
[2022-05-27] MEDS: ELIQUIS PO SCH (21:01)
[2022-05-27] MEDS: MICRO K EXTEN CAP 10 MEQ PO SCH (21:01)
[2022-05-27] MEDS: PROTONIX TAB 40 MG PO SCH (21:01)
[2022-05-27] MEDS: SENOKOT PO SCH (21:03)
[2022-05-27] MEDS: LIPITOR TAB 20 MG PO SCH (21:03)
[2022-05-27] MEDS: HumuLIN 70/30 (NovoLIN 70/30) SC SCH (21:07)
[2022-05-27] MEDS: ULTRAM PO PRN (21:18)
[2022-05-27] MEDS: COMBIGAN EYE DROPS OP SCH (22:04)
[2022-05-28] MEDS: MORPHINE SULFATE INJ 2 MG INJ IVP PRN (00:06)
[2022-05-28 05:24] LABS: BASOPHILS # (AUTO) 0.1 X10^3/uL (0.0-0.1); BASOPHILS % (AUTO) 2.2 % (0.2-1.0); EOSINOPHILS # (AUTO) 0.1 x10^3/uL (0.0-0.2); EOSINOPHILS % (AUTO) 1.5 % (0.9-2.9); HEMATOCRIT 24.3 % (36.0-47.0); HEMOGLOBIN 8.2 g/dL (12.0-16.0); LYMPHOCYTES # (AUTO) 1.4 X10^3/uL (1.3-2.9); LYMPHOCYTES % (AUTO) 26.4 % (21.0-51.0); MEAN CORPUSCULAR HEMOGLOBIN 25.6 pg (27.0-34.0); MEAN CORPUSCULAR HGB CONC 33.7 g/dL (33.0-35.0); MEAN CORPUSCULAR VOLUME 76.1 fL (80.0-100.0); MEAN PLATELET VOLUME 8.8 fL (7.4-11.0); MONOCYTES # (AUTO) 0.5 x10^3/uL (0.3-0.8); MONOCYTES % (AUTO) 9.4 % (0.0-13.0); NEUTROPHILS # (AUTO) 3.1 x10^3/uL (2.2-4.8); NEUTROPHILS % (AUTO) 60.5 % (42.0-75.0); RED CELL DISTRIBUTION WIDTH 17.5 % (11.6-16.5); WHITE BLOOD COUNT 5.1 X10^3/uL (3.6-10.0)
[2022-05-28] MEDS: APRESOLINE TAB 25 MG PO SCH ×3 (05:26→21:08)
[2022-05-28] MEDS: CATAPRES TAB 0.1 MG PO SCH ×3 (05:26→21:08)
[2022-05-28 05:49] LABS: CARBON DIOXIDE 31.7 mmol/L (21-32); COR CA(FOR HYPOALB) 9.6 mg/dL (8.5-10.1); CREATININE 2.1 mg/dL (0.55-1.02); TOTAL PROTEIN 6.3 g/dL (6.4-8.2)
[2022-05-28] MEDS: CARDIZEM CD 120 MG 24-HR PO SCH (08:57)
[2022-05-28] MEDS: CARDIZEM CD 180 MG 24-HR PO SCH (08:58)
[2022-05-28] MEDS: ELIQUIS PO SCH ×3 (08:58→21:08)
[2022-05-28] MEDS: COREG TAB 12.5 MG PO SCH ×2 (08:58→20:09)
[2022-05-28] MEDS: MICRO K EXTEN CAP 10 MEQ PO SCH ×2 (08:59→20:08)
[2022-05-28] MEDS: REGLAN TAB 5 MG PO SCH ×4 (08:59→20:08)
[2022-05-28] MEDS: LASIX PO SCH (08:59)
[2022-05-28] MEDS: PROTONIX TAB 40 MG PO SCH ×2 (08:59→20:08)
[2022-05-28] MEDS: NEURONTIN CAP 300 MG PO SCH (09:00)
[2022-05-28] MEDS: PLAVIX PO SCH (09:00)
[2022-05-28] MEDS: HumuLIN 70/30 (NovoLIN 70/30) SC SCH ×2 (09:01→20:09)
[2022-05-28] MEDS: FLONASE NASAL SPRAY ENOSTRIL SCH (09:11)
--- NOTE | 2022-05-28 12:42 | RAD ---
HISTORYCHFSTUDYPortable AP chestCOMPARISONAugust 2021FINDINGSSimilar and stable cardiac size. Persistent bilateral infiltrates or edema, slightly improved since 1 day earlier. There is residual edema present, right greater than left. A small right pleural effusion is now observed.IMPRESSIONPersistent but improved asymmetric pulmonary edema with development of a small right pleural effusion.Electronically signed by: WAGNER NIXON (May 28, 2022 12:40:53)
[2022-05-28] MEDS: NovoLIN R (or HumuLIN R) SC PRN ×2 (12:47→16:13)
[2022-05-28] MEDS: COMBIGAN EYE DROPS OP SCH ×2 (14:45→20:07)
--- NOTE | 2022-05-28 17:53 | DR.H&P ---
H&P - History & Physical for Day of: H&P Date: 05/27/22 - Chief Complaint Chief Complaint: SOB - History of Present Illness History of Present Illness: A 67 y/o female presenting with worsening SOB over the course of several days. She denies chest pain, diaphoresis or palpitations. She admits to nausea. She has orthopnea. She was seen by the [facility] M[employer] CLEANER and Cardiology on 05/24/22 for a hospital follow up. Pt was in [facility] for a week for CHF. Patient reports dyspnea worsened this morning. 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 - Family History Family Medical History: Diabetes Mellitus, [place], Heart Failure, Hypertension - Social History Does patient currently use any type of tobacco product: Yes (chewing tobacco) Have you used tobacco products in the last 12 months: Yes Type of Tobacco Use: Smokeless Does any household member use tobacco: No Alcohol Use: None Drug Use: None - Medications Home Medications: GISEL Inhibitors Allergy (Verified 12/01/21 11:35) codeine Allergy (Verified 12/01/21 11:30) hydrocodone Allergy (Verified 12/01/21 11:30) insulin detemir [From Levemir] Allergy (Verified 12/01/21 11:30) Iodinated Contrast Media Allergy (Verified 12/01/21 11:30) iodine Allergy (Verified 12/01/21 11:30) ketorolac [From Toradol] Allergy (Verified 12/01/21 11:30) olmesartan [From Benicar] Allergy (Verified 12/01/21 11:30) Pork/Porcine Containing Products Allergy (Verified 01/05/22 09:13) insulin glargine [From Lantus] Adverse Reaction (Verified 12/01/21 11:30) BETA-BLOCKERS Allergy (Uncoded 12/01/21 11:30) - Review of Systems Constitutional: Weakness Eyes: No Symptoms Reported ENT: No Symptoms Reported Respiratory: Shortness of Breath Cardiovascular: Palpitations Genitourinary: No Symptoms Reported Musculoskeletal: Back Pain Skin: No Symptoms Reported Neurological: Weakness - Physical Exam Vital Signs: Temperature 98.4 F Pulse Rate [Left Radial] 72 Pulse Rate 53 Respiratory Rate 18 Blood Pressure [Right Arm] 231/95 Blood Pressure [Left Arm] 152/72 Blood Pressure 165/73 O2 Sat by Pulse Oximetry 100 Oriented: Normal Eyes: Normal Ear: Normal Nose: Normal Throat: Normal Respiratory: Diminished Throughout Cardiovascular: Irregular (regularly irregular) Auscultation: Bowel Sounds: Normal Tenderness: Normal Skin: Decreased Turgur Musculoskeletal: Back:Lumbar Psychiatric: Anxiety Affect: Anxious Speech Pattern: Clear, Appropriate - Assessment/Plan (1) Respiratory failure with hypoxia and hypercapnia Status: Acute Plan: ADMIT, ICU. CONTINUOUS CARDIAC MONITORING, STRICT I&OS. BP CONTROL VERIFY HOME MEDICATION. AM NUCLEAR LUNG SCAN RO PE, ELIQUIS THERAPY. SUPPLEMENTAL O2, ABG ON ADMISSION, BIPAP PRN. BP CONTROL, BS CONTROL (2) Elevated d-dimer Status: Acute (3) CKD (chronic kidney disease) stage 4, GFR 15-29 ml/min Status: Acute (4) Uncontrolled type 2 diabetes mellitus Qualifiers: Glycemic state: with hyperglycemia Qualified Code(s): E11.65 - Type 2 diabetes mellitus with hyperglycemia Status: Acute (5) Hypertensive urgency Status: Acute (6) CHF (congestive heart failure) Qualifiers: Heart failure type: combined systolic and diastolic Heart failure chronicity: acute on chronic Qualified Code(s): I50.43 - Acute on chronic combined systolic (congestive) and diastolic (congestive) heart failure Status: Acute - Allergies Allergies/Adverse Reactions: Allergies Allergy/AdvReac Type Severity Reaction Status Date / Time GISEL Inhibitors Allergy Verified 12/01/21 11:35 codeine Allergy Verified 12/01/21 11:30 hydrocodone Allergy Verified 12/01/21 11:30 insulin detemir Allergy Verified 12/01/21 11:30 [From Levemir] Iodinated Contrast Media Allergy Verified 12/01/21 11:30 iodine Allergy Verified 12/01/21 11:30 ketorolac [From Toradol] Allergy Verified 12/01/21 11:30 olmesartan [From Benicar] Allergy Verified 12/01/21 11:30 Pork/Porcine Containing Allergy Verified 01/05/22 09:13 Products insulin glargine AdvReac Verified 12/01/21 11:30 [From Lantus] BETA-BLOCKERS Allergy Uncoded 12/01/21 11:30
--- NOTE | 2022-05-28 18:02 | PCM.PROG ---
Progress Note - Progress Note for Day of Date of Exam: 05/28/22 - Subjective Subjective: PT IS 67 BF, ER ADMISSION WITH CO SOB. PT WAS IN HYPERTENSIVE URGENCY ON ADMISSION WITH HYPOXIA CONFIRMED WITH ABG. PT WAS PLACED ON BIPAP IN ICU AND HAD IMPROVING AIR HUNGER. PT IS CURRENTLY ON O2 AT 4 LITERS/NC. PT TO HAVE NM LUNG PROFUSION SCAN TO RO PE. PT IS ON ELIQUIS. PT HAS KNOWN CHF AND DIABETES AND STAGE III RENAL DISEASE. PT DENIES CHEST PAIN THIS AM, BUT CONTINUES TO CO SOB. PT CO NAUSEA THIS AM. - Past Medical Family Social History Past Med/Fam/Surg Hx: No changes since H&P Allergies: Allergies GISEL Inhibitors Allergy (Verified 12/01/21 11:35) codeine Allergy (Verified 12/01/21 11:30) hydrocodone Allergy (Verified 12/01/21 11:30) insulin detemir [From Levemir] Allergy (Verified 12/01/21 11:30) Iodinated Contrast Media Allergy (Verified 12/01/21 11:30) iodine Allergy (Verified 12/01/21 11:30) ketorolac [From Toradol] Allergy (Verified 12/01/21 11:30) olmesartan [From Benicar] Allergy (Verified 12/01/21 11:30) Pork/Porcine Containing Products Allergy (Verified 01/05/22 09:13) insulin glargine [From Lantus] Adverse Reaction (Verified 12/01/21 11:30) BETA-BLOCKERS Allergy (Uncoded 12/01/21 11:30) - Review of Systems ROS: No change since H&P - Vital Signs and I&O's Vital Signs: Temperature 98.4 F Pulse Rate [Left Radial] 72 Pulse Rate 53 Respiratory Rate 18 Blood Pressure [Right Arm] 231/95 Blood Pressure [Left Arm] 152/72 Blood Pressure 165/73 O2 Sat by Pulse Oximetry 100 Intake and Output: Intake & Output 05/26/22 05/27/22 05/28/22 05/29/22 11:59 11:59 11:59 11:59 Intake Total 630 / 630 750 / 750 Output Total 1650 / 1650 200 / 200 Balance -1020 / -1020 550 / 550 - Physical Exam Oriented: Normal Eyes: Normal Ear: Normal Nose: Normal Throat: Normal Respiratory: Diminished Cardiovascular: Irregular (regularly irregular) Auscultation: Bowel Sounds: Normal Tenderness: Normal Skin: Decreased Turgur Musculoskeletal: Back:Lumbar Psychiatric: Anxiety Affect: Anxious Speech Pattern: Clear, Appropriate - Laboratory and Diagnostics Result Diagrams: 05/28/22 04:25 05/28/22 04:25 Labs: Laboratory WBC 5.1 X10^3/uL (3.6-10.0) 05/28/22 04:25 RBC 3.20 X10^6/uL (3.5-5.4) L 05/28/22 04:25 Hgb 8.2 g/dL (12.0-16.0) L 05/28/22 04:25 Hct 24.3 % (36.0-47.0) L 05/28/22 04:25 MCV 76.1 fL (80.0-100.0) L 05/28/22 04:25 MCH 25.6 pg (27.0-34.0) L 05/28/22 04:25 MCHC 33.7 g/dL (33.0-35.0) 05/28/22 04:25 RDW 17.5 % (11.6-16.5) H 05/28/22 04:25 Plt Count 239 X10^3/uL (150.0-450.0) 05/28/22 04:25 MPV 8.8 fL (7.4-11.0) 05/28/22 04:25 Neut % (Auto) 60.5 % (42.0-75.0) 05/28/22 04:25 Lymph % (Auto) 26.4 % (21.0-51.0) 05/28/22 04:25 [place] % (Auto) 9.4 % (0.0-13.0) 05/28/22 04:25 Eos % (Auto) 1.5 % (0.9-2.9) 05/28/22 04:25 Baso % (Auto) 2.2 % (0.2-1.0) H 05/28/22 04:25 Neut # (Auto) 3.1 x10^3/uL (2.2-4.8) 05/28/22 04:25 Lymph # (Auto) 1.4 X10^3/uL (1.3-2.9) 05/28/22 04:25 [place] # (Auto) 0.5 x10^3/uL (0.3-0.8) 05/28/22 04:25 Eos # (Auto) 0.1 x10^3/uL (0.0-0.2) 05/28/22 04:25 Baso # (Auto) 0.1 X10^3/uL (0.0-0.1) 05/28/22 04:25 Absolute Nucleated RBC 0.0 /100WBC 05/28/22 04:25 D-Dimer 6.77 ug/ml (0.0-0.57) H 05/27/22 08:00 Sample Site Lrad 05/27/22 07:59 ABG pH 7.400 (7.35-7.45) 05/27/22 07:59 ABG pCO2 55.0 mmHg (35.0-45.0) H* 05/27/22 07:59 ABG pO2 65.0 mmHg (80.0-100.0) L 05/27/22 07:59 ABG HCO3 34.1 mmol/L (22-26) H* 05/27/22 07:59 ABG O2 Saturation 92.0 % (90-100) 05/27/22 07:59 ABG Base Excess 7.7 mmol/L (-2.0-2.0) H 05/27/22 07:59 Jason Test Pos 05/27/22 07:59 A-a Gradient 123.0 mmHg 05/27/22 07:59 FiO2 36.0 05/27/22 07:59 Blood Gas Comments Pt aury well elj 05/27/22 07:59 Sodium 138 mmol/L (136-145) 05/28/22 04:25 Corrected Sodium 141 mmol/L (136-145) 05/28/22 04:25 Potassium 4.1 mmol/L (3.5-5.1) 05/28/22 04:25 Chloride 101 mmol/L (98-107) 05/28/22 04:25 Carbon Dioxide 31.7 mmol/L (21-32) 05/28/22 04:25 BUN 25 mg/dL (7-18) H 05/28/22 04:25 Creatinine 2.10 mg/dL (0.55-1.02) H 05/28/22 04:25 Est GFR (MDRD) Af Amer 30 (>60) L 05/28/22 04:25 Est GFR (MDRD) Non-Af 25 (>60) L 05/28/22 04:25 Glucose 234 mg/dL (65-99) H 05/28/22 04:25 POC Glucose (mg/dL) 228 mg/dL (65-99) H 05/28/22 15:09 Calcium 8.0 mg/dL (8.5-10.1) L 05/28/22 04:25 Corrected Calcium 9.6 mg/dL (8.5-10.1) 05/28/22 04:25 Total Bilirubin 0.40 mg/dL (0.2-1.0) 05/28/22 04:25 AST 18 Units/L (15-37) 05/28/22 04:25 ALT 21 Units/L (12-78) 05/28/22 04:25 Alkaline Phosphatase 237 Units/L (46-116) H 05/28/22 04:25 Creatine Kinase 33 Units/L (26-192) 05/28/22 04:25 Troponin I High Sens 112.5 ng/L (4.0-60.0) H* 05/28/22 04:25 B-Natriuretic Peptide 495 pg/mL (0-79) H 05/28/22 04:25 Total Protein 6.3 g/dL (6.4-8.2) L 05/28/22 04:25 Albumin 2.0 g/dL (3.4-5.0) L 05/28/22 04:25 Globulin 4.3 g/dL (2.5-4.5) 05/28/22 04:25 Albumin/Globulin Ratio 0.5 Ratio (1.1-2.1) L 05/28/22 04:25 Specimen Type Catherized urine 05/27/22 08:40 Urine Color Pale yellow (YELLOW) 05/27/22 08:40 Urine Appearance Clear (CLEAR) 05/27/22 08:40 Urine pH 7.0 (5.0 - 8.0) 05/27/22 08:40 Ur Specific [place] 1.015 (1.000-1.030) 05/27/22 08:40 Urine Protein 3+ (NEGATIVE) 05/27/22 08:40 Urine Glucose (UA) 3+ (NEGATIVE) 05/27/22 08:40 Urine Ketones Negative (NEGATIVE) 05/27/22 08:40 Urine Blood 4+ (NEGATIVE) 05/27/22 08:40 Urine Nitrite Negative (NEGATIVE) 05/27/22 08:40 Urine Bilirubin Negative (NEGATIVE) 05/27/22 08:40 Urine Urobilinogen Normal (NORMAL) 05/27/22 08:40 Ur Leukocyte Esterase 1+ (NEGATIVE) 05/27/22 08:40 Urine RBC 5-10 /HPF (0-3) A 05/27/22 08:40 Urine WBC 0-2 /HPF (0-5) 05/27/22 08:40 Ur Squamous Epith Cells Rare /HPF (NEGATIVE) 05/27/22 08:40 Urine Bacteria Trace /HPF (NEGATIVE) 05/27/22 08:40 Ur Culture Indicated? No/not indicated 05/27/22 08:40 - Plan (1) Respiratory failure with hypoxia and hypercapnia Status: Acute Plan: ICU. CONTINUOUS CARDIAC MONITORING, STRICT I&OS. BP CONTROL VERIFY HOME MEDICATION. AM NUCLEAR LUNG SCAN RO PE, ELIQUIS THERAPY. SUPPLEMENTAL O2, ABG ON ADMISSION, BIPAP PRN. BP CONTROL, BS CONTROL (2) Elevated d-dimer Status: Acute (3) CKD (chronic kidney disease) stage 4, GFR 15-29 ml/min Status: Acute (4) Uncontrolled type 2 diabetes mellitus Status: Acute Qualifiers: Glycemic state: with hyperglycemia Qualified Code(s): E11.65 - Type 2 diabetes mellitus with hyperglycemia (5) Hypertensive urgency Status: Acute (6) CHF (congestive heart failure) Status: Acute Qualifiers: Heart failure type: combined systolic and diastolic Heart failure chronicity: acute on chronic Qualified Code(s): I50.43 - Acute on chronic combined systolic (congestive) and diastolic (congestive) heart failure
[2022-05-28] MEDS: SNACK - Diabetic Appropriate PO SCH (20:07)
[2022-05-28] MEDS: SENOKOT PO SCH (20:08)
[2022-05-28] MEDS: LIPITOR TAB 20 MG PO SCH (20:08)
[2022-05-29 05:24] LABS: BASOPHILS # (AUTO) 0.1 X10^3/uL (0.0-0.1); BASOPHILS % (AUTO) 2.2 % (0.2-1.0); EOSINOPHILS # (AUTO) 0.1 x10^3/uL (0.0-0.2); EOSINOPHILS % (AUTO) 2.4 % (0.9-2.9); HEMATOCRIT 24.6 % (36.0-47.0); LYMPHOCYTES # (AUTO) 1.9 X10^3/uL (1.3-2.9); LYMPHOCYTES % (AUTO) 39.2 % (21.0-51.0); MEAN CORPUSCULAR HEMOGLOBIN 25.1 pg (27.0-34.0); MEAN CORPUSCULAR HGB CONC 32.6 g/dL (33.0-35.0); MEAN CORPUSCULAR VOLUME 76.8 fL (80.0-100.0); MEAN PLATELET VOLUME 8.8 fL (7.4-11.0); MONOCYTES # (AUTO) 0.4 x10^3/uL (0.3-0.8); MONOCYTES % (AUTO) 9.5 % (0.0-13.0); NEUTROPHILS # (AUTO) 2.2 x10^3/uL (2.2-4.8); NEUTROPHILS % (AUTO) 46.7 % (42.0-75.0); RED CELL DISTRIBUTION WIDTH 17.6 % (11.6-16.5); WHITE BLOOD COUNT 4.7 X10^3/uL (3.6-10.0)
[2022-05-29] MEDS: APRESOLINE TAB 25 MG PO SCH ×3 (05:27→21:04)
[2022-05-29 05:28] LABS: ALBUMIN 2.1 g/dL (3.4-5.0); CALCIUM 8.1 mg/dL (8.5-10.1); CARBON DIOXIDE 31.6 mmol/L (21-32); COR CA(FOR HYPOALB) 9.6 mg/dL (8.5-10.1); CREATININE 2.25 mg/dL (0.55-1.02); TOTAL PROTEIN 6.6 g/dL (6.4-8.2)
[2022-05-29] MEDS: CATAPRES TAB 0.1 MG PO SCH ×3 (05:28→21:04)
[2022-05-29] MEDS: CARDIZEM CD 120 MG 24-HR PO SCH (08:34)
[2022-05-29] MEDS: LASIX PO SCH (08:34)
[2022-05-29] MEDS: MICRO K EXTEN CAP 10 MEQ PO SCH ×2 (08:34→20:05)
[2022-05-29] MEDS: PROTONIX TAB 40 MG PO SCH ×2 (08:34→20:05)
[2022-05-29] MEDS: CARDIZEM CD 180 MG 24-HR PO SCH (08:35)
[2022-05-29] MEDS: COMBIGAN EYE DROPS OP SCH ×2 (08:35→20:07)
[2022-05-29] MEDS: FLONASE NASAL SPRAY ENOSTRIL SCH (08:36)
[2022-05-29] MEDS: REGLAN TAB 5 MG PO SCH ×4 (08:36→20:06)
[2022-05-29] MEDS: PLAVIX PO SCH (08:36)
[2022-05-29] MEDS: COREG TAB 12.5 MG PO SCH ×2 (08:36→20:06)
[2022-05-29] MEDS: HumuLIN 70/30 (NovoLIN 70/30) SC SCH ×2 (08:43→20:07)
[2022-05-29] MEDS: ELIQUIS PO SCH ×2 (08:44→20:06)
[2022-05-29] MEDS: NEURONTIN CAP 300 MG PO SCH (08:45)
[2022-05-29] MEDS: NovoLIN R (or HumuLIN R) SC PRN ×2 (11:20→16:13)
--- NOTE | 2022-05-29 12:18 | NM ---
HISTORYElevated D-dimerSTUDYNuclear medicine perfusion lung scanTechnique: Patient received intravenous injection of 5.5 millicuries technetium 99 MAA.COMPARISONChest x-ray 05/28/2022 11:28 a.m.FINDINGSThere is symmetric pulmonary perfusion without evidence for significant subsegmental, segmental, or lobar perfusion defects. Probability of acute pulmonary thromboembolic disease is low.IMPRESSIONLow probability acute pulmonary thromboembolic diseaseElectronically signed by: CINDY WHELAN (May 29, 2022 12:16:51)
--- NOTE | 2022-05-29 17:54 | PCM.PROG ---
Progress Note - Progress Note for Day of Date of Exam: 05/29/22 - Subjective Subjective: PT IS 67 BF, ER ADMISSION WITH CO SOB. PT WAS IN HYPERTENSIVE URGENCY ON ADMISSION WITH HYPOXIA CONFIRMED WITH ABG. PT WAS PLACED ON BIPAP IN ICU AND HAD IMPROVING AIR HUNGER. PT IS CURRENTLY ON O2 AT 4 LITERS/NC. PT TO HAVE NM LUNG PROFUSION SCAN TO RO PE. PT IS ON ELIQUIS. PT HAS KNOWN CHF AND DIABETES AND STAGE III RENAL DISEASE. PT DENIES CHEST PAIN THIS AM, BUT CONTINUES TO CO SOB. PT IS NPO FOR LUNG SCAN THIS AM. RENAL FUNCTION STABLE BELOW. PLAN TO OBTAIN LAST SLEEP STUDY REPORT, PT MAY BE CANDIDATE FOR TRILOGY WITH ACUTE ON CHRONIC RESP FAILURE WITH HYPERCAPNIA. CONTINUE BS CONTROL. PT TOLERATED COREG WELL AT THIS TIME. WILL REPEAT AM ROOM AIR ABG, CXR AND LABS INCLUDING D-DIMER. - Past Medical Family Social History Past Med/Fam/Surg Hx: No changes since H&P Allergies: Allergies GISEL Inhibitors Allergy (Verified 12/01/21 11:35) codeine Allergy (Verified 12/01/21 11:30) hydrocodone Allergy (Verified 12/01/21 11:30) insulin detemir [From Levemir] Allergy (Verified 12/01/21 11:30) Iodinated Contrast Media Allergy (Verified 12/01/21 11:30) iodine Allergy (Verified 12/01/21 11:30) ketorolac [From Toradol] Allergy (Verified 12/01/21 11:30) olmesartan [From Benicar] Allergy (Verified 12/01/21 11:30) Pork/Porcine Containing Products Allergy (Verified 01/05/22 09:13) insulin glargine [From Lantus] Adverse Reaction (Verified 12/01/21 11:30) BETA-BLOCKERS Allergy (Uncoded 12/01/21 11:30) - Review of Systems ROS: No change since H&P - Vital Signs and I&O's Vital Signs: Temperature 98.0 F Pulse Rate [Left Radial] 72 Pulse Rate 57 Respiratory Rate 25 Blood Pressure [Right Arm] 231/95 Blood Pressure [Left Arm] 152/72 Blood Pressure 155/70 O2 Sat by Pulse Oximetry 100 Intake and Output: Intake & Output 05/27/22 05/28/22 05/29/22 05/30/22 11:59 11:59 11:59 11:59 Intake Total 630 / 630 1210 / 1210 Output Total 1650 / 1650 525 / 525 275 / 275 Balance -1020 / -1020 685 / 685 -275 / -275 - Physical Exam Oriented: Normal Eyes: Normal Ear: Normal Nose: Normal Throat: Normal Respiratory: Diminished Cardiovascular: Irregular (regularly irregular) Auscultation: Bowel Sounds: Normal Tenderness: Normal Skin: Decreased Turgur Musculoskeletal: Back:Lumbar Psychiatric: Anxiety Affect: Anxious Speech Pattern: Clear, Appropriate - Laboratory and Diagnostics Result Diagrams: 05/29/22 04:20 05/29/22 04:20 Labs: Laboratory WBC 4.7 X10^3/uL (3.6-10.0) 05/29/22 04:20 RBC 3.20 X10^6/uL (3.5-5.4) L 05/29/22 04:20 Hgb 8.0 g/dL (12.0-16.0) L 05/29/22 04:20 Hct 24.6 % (36.0-47.0) L 05/29/22 04:20 MCV 76.8 fL (80.0-100.0) L 05/29/22 04:20 MCH 25.1 pg (27.0-34.0) L 05/29/22 04:20 MCHC 32.6 g/dL (33.0-35.0) L 05/29/22 04:20 RDW 17.6 % (11.6-16.5) H 05/29/22 04:20 Plt Count 244 X10^3/uL (150.0-450.0) 05/29/22 04:20 MPV 8.8 fL (7.4-11.0) 05/29/22 04:20 Neut % (Auto) 46.7 % (42.0-75.0) 05/29/22 04:20 Lymph % (Auto) 39.2 % (21.0-51.0) 05/29/22 04:20 [place] % (Auto) 9.5 % (0.0-13.0) 05/29/22 04:20 Eos % (Auto) 2.4 % (0.9-2.9) 05/29/22 04:20 Baso % (Auto) 2.2 % (0.2-1.0) H 05/29/22 04:20 Neut # (Auto) 2.2 x10^3/uL (2.2-4.8) 05/29/22 04:20 Lymph # (Auto) 1.9 X10^3/uL (1.3-2.9) 05/29/22 04:20 [place] # (Auto) 0.4 x10^3/uL (0.3-0.8) 05/29/22 04:20 Eos # (Auto) 0.1 x10^3/uL (0.0-0.2) 05/29/22 04:20 Baso # (Auto) 0.1 X10^3/uL (0.0-0.1) 05/29/22 04:20 Absolute Nucleated RBC 0.1 /100WBC 05/29/22 04:20 D-Dimer 6.77 ug/ml (0.0-0.57) H 05/27/22 08:00 Sample Site Lrad 05/27/22 07:59 ABG pH 7.400 (7.35-7.45) 05/27/22 07:59 ABG pCO2 55.0 mmHg (35.0-45.0) H* 05/27/22 07:59 ABG pO2 65.0 mmHg (80.0-100.0) L 05/27/22 07:59 ABG HCO3 34.1 mmol/L (22-26) H* 05/27/22 07:59 ABG O2 Saturation 92.0 % (90-100) 05/27/22 07:59 ABG Base Excess 7.7 mmol/L (-2.0-2.0) H 05/27/22 07:59 Jason Test Pos 05/27/22 07:59 A-a Gradient 123.0 mmHg 05/27/22 07:59 FiO2 36.0 05/27/22 07:59 Blood Gas Comments Pt aury well elj 05/27/22 07:59 Sodium 138 mmol/L (136-145) 05/29/22 04:20 Corrected Sodium 138 mmol/L (136-145) 05/29/22 04:20 Potassium 4.2 mmol/L (3.5-5.1) 05/29/22 04:20 Chloride 102 mmol/L (98-107) 05/29/22 04:20 Carbon Dioxide 31.6 mmol/L (21-32) 05/29/22 04:20 BUN 28 mg/dL (7-18) H 05/29/22 04:20 Creatinine 2.25 mg/dL (0.55-1.02) H 05/29/22 04:20 Est GFR (MDRD) Af Amer 28 (>60) L 05/29/22 04:20 Est GFR (MDRD) Non-Af 23 (>60) L 05/29/22 04:20 Glucose 113 mg/dL (65-99) H 05/29/22 04:20 POC Glucose (mg/dL) 198 mg/dL (65-99) H 05/29/22 15:10 Calcium 8.1 mg/dL (8.5-10.1) L 05/29/22 04:20 Corrected Calcium 9.6 mg/dL (8.5-10.1) 05/29/22 04:20 Total Bilirubin 0.50 mg/dL (0.2-1.0) 05/29/22 04:20 AST 18 Units/L (15-37) 05/29/22 04:20 ALT 21 Units/L (12-78) 05/29/22 04:20 Alkaline Phosphatase 234 Units/L (46-116) H 05/29/22 04:20 Creatine Kinase 33 Units/L (26-192) 05/28/22 04:25 Troponin I High Sens 112.5 ng/L (4.0-60.0) H* 05/28/22 04:25 B-Natriuretic Peptide 495 pg/mL (0-79) H 05/28/22 04:25 Total Protein 6.6 g/dL (6.4-8.2) 05/29/22 04:20 Albumin 2.1 g/dL (3.4-5.0) L 05/29/22 04:20 Globulin 4.5 g/dL (2.5-4.5) 05/29/22 04:20 Albumin/Globulin Ratio 0.5 Ratio (1.1-2.1) L 05/29/22 04:20 Specimen Type Catherized urine 05/27/22 08:40 Urine Color Pale yellow (YELLOW) 05/27/22 08:40 Urine Appearance Clear (CLEAR) 05/27/22 08:40 Urine pH 7.0 (5.0 - 8.0) 05/27/22 08:40 Ur Specific Ina 1.015 (1.000-1.030) 05/27/22 08:40 Urine Protein 3+ (NEGATIVE) 05/27/22 08:40 Urine Glucose (UA) 3+ (NEGATIVE) 05/27/22 08:40 Urine Ketones Negative (NEGATIVE) 05/27/22 08:40 Urine Blood 4+ (NEGATIVE) 05/27/22 08:40 Urine Nitrite Negative (NEGATIVE) 05/27/22 08:40 Urine Bilirubin Negative (NEGATIVE) 05/27/22 08:40 Urine Urobilinogen Normal (NORMAL) 05/27/22 08:40 Ur Leukocyte Esterase 1+ (NEGATIVE) 05/27/22 08:40 Urine RBC 5-10 /HPF (0-3) A 05/27/22 08:40 Urine WBC 0-2 /HPF (0-5) 05/27/22 08:40 Ur Squamous Epith Cells Rare /HPF (NEGATIVE) 05/27/22 08:40 Urine Bacteria Trace /HPF (NEGATIVE) 05/27/22 08:40 Ur Culture Indicated? No/not indicated 05/27/22 08:40 - Plan (1) Respiratory failure with hypoxia and hypercapnia Status: Acute Plan: ICU. CONTINUOUS CARDIAC MONITORING, STRICT I&OS. BP CONTROL VERIFY HOME MEDICATION. AM NUCLEAR LUNG SCAN RO PE, ELIQUIS THERAPY. SUPPLEMENTAL O2, ABG ON ADMISSION, BIPAP PRN. BP CONTROL, BS CONTROL (2) Elevated d-dimer Status: Acute (3) CKD (chronic kidney disease) stage 4, GFR 15-29 ml/min Status: Acute (4) Uncontrolled type 2 diabetes mellitus Status: Acute Qualifiers: Glycemic state: with hyperglycemia Qualified Code(s): E11.65 - Type 2 diabetes mellitus with hyperglycemia (5) Hypertensive urgency Status: Acute (6) CHF (congestive heart failure) Status: Acute Qualifiers: Heart failure type: combined systolic and diastolic Heart failure chronicity: acute on chronic Qualified Code(s): I50.43 - Acute on chronic combined systolic (congestive) and diastolic (congestive) heart failure
[2022-05-29] MEDS: MORPHINE SULFATE INJ 2 MG INJ IVP PRN (19:21)
[2022-05-29] MEDS: LIPITOR TAB 20 MG PO SCH (20:05)
[2022-05-29] MEDS: SENOKOT PO SCH (20:06)
[2022-05-29] MEDS: SNACK - Diabetic Appropriate PO SCH (20:07)
[2022-05-30] MEDS: APRESOLINE TAB 25 MG PO SCH ×3 (05:14→21:09)
[2022-05-30] MEDS: CATAPRES TAB 0.1 MG PO SCH ×3 (05:14→21:09)
[2022-05-30 05:24] LABS: BASOPHILS % (AUTO) 0.7 % (0.2-1.0); EOSINOPHILS # (AUTO) 0.1 x10^3/uL (0.0-0.2); HEMATOCRIT 24.7 % (36.0-47.0); HEMOGLOBIN 8.3 g/dL (12.0-16.0); LYMPHOCYTES # (AUTO) 1.5 X10^3/uL (1.3-2.9); LYMPHOCYTES % (AUTO) 34.4 % (21.0-51.0); MEAN CORPUSCULAR HEMOGLOBIN 25.3 pg (27.0-34.0); MEAN CORPUSCULAR HGB CONC 33.5 g/dL (33.0-35.0); MEAN CORPUSCULAR VOLUME 75.5 fL (80.0-100.0); MEAN PLATELET VOLUME 8.6 fL (7.4-11.0); MONOCYTES # (AUTO) 0.4 x10^3/uL (0.3-0.8); MONOCYTES % (AUTO) 8.2 % (0.0-13.0); NEUTROPHILS # (AUTO) 2.4 x10^3/uL (2.2-4.8); NEUTROPHILS % (AUTO) 54.7 % (42.0-75.0); RED BLOOD COUNT 3.27 X10^6/uL (3.5-5.4); RED CELL DISTRIBUTION WIDTH 17.7 % (11.6-16.5); WHITE BLOOD COUNT 4.4 X10^3/uL (3.6-10.0)
[2022-05-30 05:47] LABS: ALBUMIN 2.2 g/dL (3.4-5.0); CALCIUM 8.3 mg/dL (8.5-10.1); CARBON DIOXIDE 32.2 mmol/L (21-32); COR CA(FOR HYPOALB) 9.7 mg/dL (8.5-10.1); CREATININE 2.39 mg/dL (0.55-1.02); TOTAL PROTEIN 6.9 g/dL (6.4-8.2)
--- NOTE | 2022-05-30 06:14 | RAD ---
HISTORYCHF HTN, CHFSTUDYCHEST, PA/LAT [id number]/29/2022FINDINGSThe trachea is midline. The cardiac silhouette is stable. Bilateral interstitial infiltrates right greater than left. Small right pleural effusion. The bony thorax is unremarkable.IMPRESSIONStable portable chest.Electronically signed by: Martin Lewis (May 30, 2022 06:12:05)
[2022-05-30 06:32] LABS: ABG BASE EXCESS 8.4 mmol/L (-2.0-2.0)
[2022-05-30 06:34] LABS: ABG ALLEN TEST POS; ABG HCO3 33.4 mmol/L (22-26)
[2022-05-30] MEDS: CARDIZEM CD 180 MG 24-HR PO SCH (08:39)
[2022-05-30] MEDS: COREG TAB 12.5 MG PO SCH ×2 (08:39→20:05)
[2022-05-30] MEDS: COMBIGAN EYE DROPS OP SCH ×2 (08:39→20:06)
[2022-05-30] MEDS: CARDIZEM CD 120 MG 24-HR PO SCH (08:39)
[2022-05-30] MEDS: FLONASE NASAL SPRAY ENOSTRIL SCH (08:40)
[2022-05-30] MEDS: PLAVIX PO SCH (08:40)
[2022-05-30] MEDS: HumuLIN 70/30 (NovoLIN 70/30) SC SCH ×2 (08:40→20:07)
[2022-05-30] MEDS: NEURONTIN CAP 300 MG PO SCH (08:41)
[2022-05-30] MEDS: LASIX PO SCH (08:41)
[2022-05-30] MEDS: MICRO K EXTEN CAP 10 MEQ PO SCH ×2 (08:41→20:05)
[2022-05-30] MEDS: PROTONIX TAB 40 MG PO SCH ×2 (08:46→20:05)
[2022-05-30] MEDS: ELIQUIS PO SCH ×2 (08:46→20:05)
[2022-05-30] MEDS: REGLAN TAB 5 MG PO SCH ×4 (08:47→20:05)
[2022-05-30] MEDS ORDERED: NS 1,000 ML IV 1,000 ML IV SCH (09:00)
[2022-05-30] MEDS: ULTRAM PO PRN (09:49)
[2022-05-30] MEDS: NovoLIN R (or HumuLIN R) SC PRN (11:21)
[2022-05-30] MEDS: NYSTATIN OINT TOP PRN (12:36)
[2022-05-30] MEDS: DIFLUCAN PO SCH (12:37)
[2022-05-30] MEDS: ZOFRAN TAB 4 MG PO PRN (17:15)
[2022-05-30] MEDS ORDERED: COREG TAB 12.5 MG ONE (18:57)
[2022-05-30] MEDS: MILK OF MAGNESIA PO SCH (20:04)
[2022-05-30] MEDS: LIPITOR TAB 20 MG PO SCH (20:05)
[2022-05-30] MEDS: SNACK - Diabetic Appropriate PO SCH (20:05)
[2022-05-30] MEDS: SENOKOT PO SCH (20:05)
[2022-05-31] MEDS: CATAPRES TAB 0.1 MG PO SCH ×3 (05:25→21:21)
[2022-05-31] MEDS: APRESOLINE TAB 25 MG PO SCH ×3 (05:25→21:20)
[2022-05-31 05:45] LABS: BASOPHILS % (AUTO) 0.9 % (0.2-1.0); EOSINOPHILS # (AUTO) 0.1 x10^3/uL (0.0-0.2); EOSINOPHILS % (AUTO) 1.8 % (0.9-2.9); HEMATOCRIT 23.5 % (36.0-47.0); HEMOGLOBIN 7.8 g/dL (12.0-16.0); LYMPHOCYTES # (AUTO) 1.7 X10^3/uL (1.3-2.9); LYMPHOCYTES % (AUTO) 40.8 % (21.0-51.0); MEAN CORPUSCULAR HGB CONC 33.1 g/dL (33.0-35.0); MEAN CORPUSCULAR VOLUME 75.6 fL (80.0-100.0); MEAN PLATELET VOLUME 8.9 fL (7.4-11.0); MONOCYTES # (AUTO) 0.4 x10^3/uL (0.3-0.8); MONOCYTES % (AUTO) 8.6 % (0.0-13.0); NEUTROPHILS % (AUTO) 47.9 % (42.0-75.0); RED CELL DISTRIBUTION WIDTH 17.3 % (11.6-16.5); WHITE BLOOD COUNT 4.1 X10^3/uL (3.6-10.0)
[2022-05-31 05:47] LABS: ALBUMIN 2.3 g/dL (3.4-5.0); CALCIUM 8.2 mg/dL (8.5-10.1); CARBON DIOXIDE 30.7 mmol/L (21-32); COR CA(FOR HYPOALB) 9.6 mg/dL (8.5-10.1); CREATININE 2.5 mg/dL (0.55-1.02); TOTAL PROTEIN 6.8 g/dL (6.4-8.2)
[2022-05-31] MEDS: HumuLIN 70/30 (NovoLIN 70/30) SC SCH ×2 (08:35→20:51)
[2022-05-31] MEDS: CARDIZEM CD 180 MG 24-HR PO SCH (08:49)
[2022-05-31] MEDS: CARDIZEM CD 120 MG 24-HR PO SCH (08:49)
[2022-05-31] MEDS: FLONASE NASAL SPRAY ENOSTRIL SCH (08:50)
[2022-05-31] MEDS: DIFLUCAN PO SCH (08:50)
[2022-05-31] MEDS: COMBIGAN EYE DROPS OP SCH ×2 (08:50→20:50)
[2022-05-31] MEDS: ELIQUIS PO SCH ×2 (08:50→20:47)
[2022-05-31] MEDS: COREG TAB 12.5 MG PO SCH ×2 (08:50→20:54)
[2022-05-31] MEDS: NEURONTIN CAP 300 MG PO SCH (08:51)
[2022-05-31] MEDS: LASIX PO SCH (08:51)
[2022-05-31] MEDS: MICRO K EXTEN CAP 10 MEQ PO SCH ×2 (08:51→20:45)
[2022-05-31] MEDS: PLAVIX PO SCH (08:51)
[2022-05-31] MEDS: PROTONIX TAB 40 MG PO SCH ×2 (08:52→20:45)
[2022-05-31] MEDS: REGLAN TAB 5 MG PO SCH ×4 (08:52→20:45)
[2022-05-31] MEDS: NovoLIN R (or HumuLIN R) SC PRN (11:00)
--- NOTE | 2022-05-31 11:10 | RAD ---
HISTORYCHF, SOBSTUDYCHEST, 1 [id number]/31/2022FINDINGSBilatera l pleural effusions are better appreciated on the prior CT 04/20/2022. There may be basilar opacity on the right which could be atelectasis or pneumonia.No pneumothorax.Findings are not changed from prior study yesterday.Heart size is magnified.Bones are unremarkable. [EKG leads are noted. ]IMPRESSION1. Unchanged right basilar atelectasis or pneumonia2. Unchanged effusionsElectronically signed by: Tristan Balbuena (May 31, 2022 11:08:34)
[2022-05-31 15:00] LABS: HEMOGLOBIN 8.3 g/dL (12.0-16.0)
[2022-05-31] MEDS: ULTRAM PO PRN (16:05)
[2022-05-31] MEDS: HEMOCYTE-PLUS PO SCH (18:06)
[2022-05-31] MEDS: ZOFRAN TAB 4 MG PO PRN (18:06)
[2022-05-31] MEDS: MORPHINE SULFATE INJ 2 MG INJ IVP PRN (20:10)
[2022-05-31] MEDS ORDERED: PHENERGAN INJ 25 MG IM PRN (20:20)
[2022-05-31] MEDS ORDERED: PHENERGAN INJ 25 MG IM ONE (20:23)
[2022-05-31] MEDS: SNACK - Diabetic Appropriate PO SCH (20:45)
[2022-05-31] MEDS: MILK OF MAGNESIA PO SCH (20:47)
[2022-05-31] MEDS: SENOKOT PO SCH (20:47)
[2022-05-31] MEDS: LIPITOR TAB 20 MG PO SCH (20:47)
[2022-05-31] MEDS: NYSTATIN OINT TOP PRN (20:48)
[2022-06-01 05:12] LABS: EOSINOPHILS # (AUTO) 0.1 x10^3/uL (0.0-0.2); EOSINOPHILS % (AUTO) 2.3 % (0.9-2.9); HEMATOCRIT 24.5 % (36.0-47.0); HEMOGLOBIN 8.2 g/dL (12.0-16.0); LYMPHOCYTES # (AUTO) 1.6 X10^3/uL (1.3-2.9); LYMPHOCYTES % (AUTO) 37.6 % (21.0-51.0); MEAN CORPUSCULAR HEMOGLOBIN 25.3 pg (27.0-34.0); MEAN CORPUSCULAR HGB CONC 33.3 g/dL (33.0-35.0); MEAN CORPUSCULAR VOLUME 75.8 fL (80.0-100.0); MEAN PLATELET VOLUME 8.7 fL (7.4-11.0); MONOCYTES # (AUTO) 0.4 x10^3/uL (0.3-0.8); NEUTROPHILS # (AUTO) 2.1 x10^3/uL (2.2-4.8); NEUTROPHILS % (AUTO) 49.1 % (42.0-75.0); RED BLOOD COUNT 3.23 X10^6/uL (3.5-5.4); RED CELL DISTRIBUTION WIDTH 17.5 % (11.6-16.5); WHITE BLOOD COUNT 4.2 X10^3/uL (3.6-10.0)
[2022-06-01] MEDS: CATAPRES TAB 0.1 MG PO SCH (05:21)
[2022-06-01] MEDS: APRESOLINE TAB 25 MG PO SCH (05:22)
[2022-06-01 05:23] LABS: ALANINE AMINOTRANSFERASE 38 Units/L (12-78); ALBUMIN 2.3 g/dL (3.4-5.0); ALKALINE PHOSPHATASE 309 Units/L (46-116); ASPARTATE AMINO TRANSFERASE 41 Units/L (15-37); BLOOD UREA NITROGEN 33 mg/dL (7-18); CALCIUM 8.3 mg/dL (8.5-10.1); CARBON DIOXIDE 30.6 mmol/L (21-32); CHLORIDE 101 mmol/L (98-107); COR CA(FOR HYPOALB) 9.7 mg/dL (8.5-10.1); CREATININE 2.68 mg/dL (0.55-1.02); SODIUM 137 mmol/L (136-145); TOTAL PROTEIN 6.9 g/dL (6.4-8.2); eGFR NON BLACK RACES 19 (>60)
[2022-06-01] MEDS: COMBIGAN EYE DROPS OP SCH (09:33)
[2022-06-01] MEDS: FLONASE NASAL SPRAY ENOSTRIL SCH (09:33)
[2022-06-01] MEDS: HumuLIN 70/30 (NovoLIN 70/30) SC SCH (09:33)
[2022-06-01] MEDS: CARDIZEM CD 120 MG 24-HR PO SCH (09:33)
[2022-06-01] MEDS: DIFLUCAN PO SCH (09:33)
[2022-06-01] MEDS: HEMOCYTE-PLUS PO SCH (09:33)
[2022-06-01] MEDS: LASIX PO SCH (09:33)
[2022-06-01] MEDS: PLAVIX PO SCH (09:33)
[2022-06-01] MEDS: REGLAN TAB 5 MG PO SCH ×2 (09:33→13:25)
[2022-06-01] MEDS: MICRO K EXTEN CAP 10 MEQ PO SCH (09:33)
[2022-06-01] MEDS: CARDIZEM CD 180 MG 24-HR PO SCH (09:33)
[2022-06-01] MEDS: COREG TAB 12.5 MG PO SCH (09:33)
[2022-06-01] MEDS: PROTONIX TAB 40 MG PO SCH (09:33)
[2022-06-01] MEDS: ELIQUIS PO SCH (09:33)
[2022-06-01] MEDS: NEURONTIN CAP 300 MG PO SCH (10:11)
[2022-06-01 13:28] VITALS: BP 146/66
== END 2022-06-01 14:20 | disposition home health service (06) | DRG 189 ==
LOC: ER 07:55 → ICU 09:52
PROVIDERS: ADMIT Family Medicine; ATTEND Internal Medicine
DX: E11.65 Type 2 diabetes mellitus with hyperglycemia; I50.43 Acute on chronic combined systolic (congestive) and diastolic (congestive) heart failure; Z79.01 Long term (current) use of anticoagulants; R07.89 Other chest pain; R77.8 Other specified abnormalities of plasma proteins; N18.4 Chronic kidney disease, stage 4 (severe); J96.01 Acute respiratory failure with hypoxia; R79.1 Abnormal coagulation profile; I48.91 Unspecified atrial fibrillation; R94.31 Abnormal electrocardiogram [ECG] [EKG]; J96.02 Acute respiratory failure with hypercapnia; I13.0 Hypertensive heart and chronic kidney disease with heart failure and stage 1 through stage 4 chronic kidney disease, or unspecified chronic kidney disease

== ENCOUNTER 2023-10-01 14:55 | Observation (INO) ==
[2023-10-01 17:41] LABS: EOSINOPHILS # (AUTO) 0.1 x10^3/uL (0.0-0.2); MONOCYTES # (AUTO) 0.4 x10^3/uL (0.3-0.8); NEUTROPHILS # (AUTO) 4.9 x10^3/uL (2.2-4.8)
[2023-10-01 17:45] LABS: BASOPHILS % (AUTO) 0.5 % (0.2-1.0); EOSINOPHILS % (AUTO) 1.1 % (0.9-2.9); HEMATOCRIT 21.3 % (36.0-47.0); LYMPHOCYTES # (AUTO) 1.2 X10^3/uL (1.3-2.9); LYMPHOCYTES % (AUTO) 18.6 % (21.0-51.0); MEAN CORPUSCULAR HEMOGLOBIN 25.2 pg (27.0-34.0); MEAN CORPUSCULAR VOLUME 78.7 fL (80.0-100.0); MEAN PLATELET VOLUME 8.4 fL (7.4-11.0); MONOCYTES % (AUTO) 6.7 % (0.0-13.0); NEUTROPHILS % (AUTO) 73.1 % (42.0-75.0); PLATELET COUNT 289 X10^3/uL (150.0-450.0); RED BLOOD COUNT 2.71 X10^6/uL (3.5-5.4); RED CELL DISTRIBUTION WIDTH 16.8 % (11.6-16.5); WHITE BLOOD COUNT 6.7 X10^3/uL (3.6-10.0)
[2023-10-01 17:48] LABS: ALBUMIN 3.2 g/dL (3.4-5.0); CALCIUM 9.2 mg/dL (8.5-10.1); CARBON DIOXIDE 32.3 mmol/L (21-32); COR CA(FOR HYPOALB) 9.8 mg/dL (8.5-10.1); CREATININE 5.15 mg/dL (0.55-1.02); POTASSIUM 3.3 mmol/L (3.5-5.1)
[2023-10-01 17:49] LABS: HEMOGLOBIN 6.8 g/dL (12.0-16.0)
--- NOTE | 2023-10-01 18:28 | DR.H&P ---
H&P History & Physical for Day of: H&P Date: 10/01/23 Chief Complaint Chief Complaint: WEAKNESS, N/V, ELEVATED BLOOD SUGAR Allergies Allergies Allergy/AdvReac Type Severity Reaction Status Date / Time GISEL Inhibitors Allergy Unknown Unverified 12/01/21 11:35 acetaminophen [From Vicodin] Allergy Unknown Verified 07/19/23 12:33 Beta-Blockers Allergy Unknown Verified 07/19/23 12:34 (Beta-Adrenergic Bloc codeine Allergy Unknown Unverified 12/01/21 11:30 hydrocodone Allergy Verified 12/01/21 11:30 insulin detemir Allergy Verified 12/01/21 11:30 [From Levemir] Iodinated Contrast Media Allergy Verified 12/01/21 11:30 iodine Allergy Verified 12/01/21 11:30 ketorolac [From Toradol] Allergy Verified 12/01/21 11:30 olmesartan [From Benicar] Allergy Verified 12/01/21 11:30 Pork/Porcine Containing Allergy Verified 01/05/22 09:13 Products insulin glargine AdvReac Verified 12/01/21 11:30 [From Lantus] History of Present Illness History of Present Illness: PT IS 68 BF, DIRECT ADMIT FROM DR FOFANA OFFICE AFTER PRESENTING WITH CO CONSTIPATION FOR ONE WEEK, ONSET OF N/V THIS AM. PT STATES SHE FEELS WEAK AND BLOOD SUGAR ELEVATED. PT HAS PMH OF DM TYPE 2, UNCONTROLLED, RENAL FAILURE, CHF AND HTN. PT HAS BEEN TAKING LASIX AND ZAROXOLYN AT HOME, BUT SHE HAS NOT BEEN DRINKING MUCH FLUID AND HER BS HAS BEEN 300-400. PT IS UNDER THE CARE OF DR LOZANO AND DR RIDER. PT IS ON CONTINUOUS O2 DUE TO CHF AND COPD. Past Medical History Past Medical History: Arthritis, CHF, Diabetes, Hypertension and Renal Disease Past Surgical History Surgical History: Cholecystectomy, Hysterectomy and Ortho Surgery Family History Family Medical History: Diabetes Mellitus and Hypertension Social History Does any household member use tobacco: No Alcohol Use: None Drug Use: None Medications Home Medications: Home Medications Medication Instructions Recorded Confirmed Type insulin human U-100 NPH-regulr 35 unit subcut BID 05/01/21 10/01/23 History 70-30 mix 100 unit/mL subcutaneous susp (Humulin 70/30 U-100 Insulin) tramadol 50 mg tablet 50 mg PO Q6H PRN 05/01/21 10/01/23 History pantoprazole 40 mg tablet,delayed 40 mg PO BID 06/17/21 10/01/23 History release diltiazem HCl 300 mg 300 mg PO QDAY 04/21/22 10/01/23 History capsule,extended release 24 hr hydralazine 100 mg tablet 100 mg PO BID 04/21/22 10/01/23 History clonidine HCl 0.1 mg tablet 0.1 mg PO TID 05/12/22 10/01/23 History furosemide 40 mg tablet 40 mg PO DAILY 11/10/22 10/01/23 History B [id number] 106 mg 1 tab PO DAILY 10/01/23 10/01/23 History iron-1 mg tablet (Hematinic Plus Vit/Minerals) metolazone 5 mg tablet 5 mg PO .[id number] 10/01/23 10/01/23 History potassium chloride 10 mEq 10 meq PO DAILY 10/01/23 10/01/23 History capsule,extended release Labs 10/01/23 17:20 10/01/23 17:20 Labs: Laboratory WBC 6.7 X10^3/uL (3.6-10.0) 10/01/23 17:20 RBC 2.71 X10^6/uL (3.5-5.4) L 10/01/23 17:20 Hgb 6.8 g/dL (12.0-16.0) L* 10/01/23 17:20 Hct 21.3 % (36.0-47.0) L 10/01/23 17:20 MCV 78.7 fL (80.0-100.0) L 10/01/23 17:20 MCH 25.2 pg (27.0-34.0) L 10/01/23 17:20 MCHC 32.0 g/dL (33.0-35.0) L 10/01/23 17:20 RDW 16.8 % (11.6-16.5) H 10/01/23 17:20 Plt Count 289 X10^3/uL (150.0-450.0) 10/01/23 17:20 MPV 8.4 fL (7.4-11.0) 10/01/23 17:20 Neut % (Auto) 73.1 % (42.0-75.0) 10/01/23 17:20 Lymph % (Auto) 18.6 % (21.0-51.0) L 10/01/23 17:20 [place] % (Auto) 6.7 % (0.0-13.0) 10/01/23 17:20 Eos % (Auto) 1.1 % (0.9-2.9) 10/01/23 17:20 Baso % (Auto) 0.5 % (0.2-1.0) 10/01/23 17:20 Neut # (Auto) 4.9 x10^3/uL (2.2-4.8) H 10/01/23 17:20 Lymph # (Auto) 1.2 X10^3/uL (1.3-2.9) L 10/01/23 17:20 [place] # (Auto) 0.4 x10^3/uL (0.3-0.8) 10/01/23 17:20 Eos # (Auto) 0.1 x10^3/uL (0.0-0.2) 10/01/23 17:20 Baso # (Auto) 0.0 X10^3/uL (0.0-0.1) 10/01/23 17:20 Absolute Nucleated RBC 0.1 /100WBC 10/01/23 17:20 Sodium 133 mmol/L (136-145) L 10/01/23 17:20 Corrected Sodium 138 mmol/L (136-145) 10/01/23 17:20 Potassium 3.3 mmol/L (3.5-5.1) L 10/01/23 17:20 Chloride 94 mmol/L (98-107) L 10/01/23 17:20 Carbon Dioxide 32.3 mmol/L (21-32) H 10/01/23 17:20 BUN 94 mg/dL (7-18) H 10/01/23 17:20 Creatinine 5.15 mg/dL (0.55-1.02) H 10/01/23 17:20 Est GFR (MDRD) Af Amer 11 (>60) L 10/01/23 17:20 Est GFR (MDRD) Non-Af 9 (>60) L 10/01/23 17:20 Glucose 329 mg/dL (65-99) H 10/01/23 17:20 Calcium 9.2 mg/dL (8.5-10.1) 10/01/23 17:20 Corrected Calcium 9.8 mg/dL (8.5-10.1) 10/01/23 17:20 Total Bilirubin 0.50 mg/dL (0.2-1.0) 10/01/23 17:20 AST 28 Units/L (15-37) 10/01/23 17:20 ALT 59 Units/L (12-78) 10/01/23 17:20 Alkaline Phosphatase 244 Units/L (46-116) H 10/01/23 17:20 Total Protein 8.0 g/dL (6.4-8.2) 10/01/23 17:20 Albumin 3.2 g/dL (3.4-5.0) L 10/01/23 17:20 Globulin 4.8 g/dL (2.5-4.5) H 10/01/23 17:20 Albumin/Globulin Ratio 0.7 Ratio (1.1-2.1) L 10/01/23 17:20 Review of Systems Constitutional: Weakness and Malaise Eyes: No Symptoms Reported ENT: No Symptoms Reported Respiratory: Shortness of Breath Gastrointestinal: Nausea, Vomiting, Abdominal Pain and Constipation Genitourinary: Frequency Musculoskeletal: Back Pain Skin: No Symptoms Reported Neurological: Other (DIZZY, HEADACHE) Oriented: Normal Eyes: Normal Ear: Normal Nose: Normal Throat: Dry Respiratory: RLL Diminished and LLL Diminished Cardiovascular: Normal; negative Edema Auscultation: Bowel Sounds: Decreased Palpation: Other (MILD DIFFUSE DISTENTION) Skin: Normal Musculoskeletal: Back:Lumbar Psychiatric: Anxiety Mood Description: Anxious Speech Pattern: Clear and Appropriate Assessment/Plan (1) Renal failure (ARF), acute on chronic: Narrative Support Text: ADMIT, BS CONTROL GENTLE IV HYDRATION, STRICT I&OS CLEAR LIQUID, ABD SERIES AND CXR ON ADMISSION ANEMIA PANEL, OCCULT STOOL ROUTINE REPEAT AM CXR BP CONTROL VERIFY HOME MEDICATIONS PAIN AND NAUSEA CONTROL Status: Acute (2) Gastroparesis due to secondary diabetes: Status: Acute (3) Dehydration: Status: Acute (4) CHF (congestive heart failure): Qualifiers: Heart failure chronicity: acute on chronic Heart failure type: combined systolic and diastolic Qualified Code(s): I50.43 - Acute on chronic combined systolic (congestive) and diastolic (congestive) heart failure Status: Acute (5) Uncontrolled diabetes mellitus: Status: Acute
[2023-10-01 18:39] LABS: RETICULOCYTE % 3.66 % (0.8-2.2)
[2023-10-01 19:15] LABS: IRON 23 ug/dL (50-175)
[2023-10-01] MEDS: CATAPRES TAB 0.1 MG PO SCH (21:51)
[2023-10-01] MEDS: PROTONIX INJ 40 MG VIAL IVP SCH (21:51)
[2023-10-01] MEDS: COREG TAB 3.125 MG PO SCH (21:51)
[2023-10-01] MEDS: APRESOLINE TAB 25 MG PO SCH (21:51)
[2023-10-01] MEDS: ULTRAM PO PRN (22:09)
[2023-10-01] MEDS: HumuLIN 70/30 (NovoLIN 70/30) SC SCH (22:14)
[2023-10-01] MEDS: SNACK - Diabetic Appropriate PO SCH (22:15)
[2023-10-01] MEDS: NS 1,000 ML IV 1,000 ML IV SCH (22:17)
[2023-10-01] MEDS: K-RIDER 10 MEQ/NS 100 ML 10 MEQ/100 ML BAG IV SCH (23:40)
[2023-10-02] MEDS: K-RIDER 10 MEQ/NS 100 ML 10 MEQ/100 ML BAG IV SCH (01:20)
[2023-10-02] MEDS: CATAPRES TAB 0.1 MG PO SCH ×3 (05:30→21:37)
[2023-10-02 06:58] LABS: BASOPHILS % (AUTO) 0.6 % (0.2-1.0); EOSINOPHILS # (AUTO) 0.2 x10^3/uL (0.0-0.2); EOSINOPHILS % (AUTO) 2.9 % (0.9-2.9); HEMATOCRIT 21.2 % (36.0-47.0); LYMPHOCYTES # (AUTO) 1.2 X10^3/uL (1.3-2.9); MEAN CORPUSCULAR HEMOGLOBIN 24.7 pg (27.0-34.0); MEAN CORPUSCULAR HGB CONC 31.9 g/dL (33.0-35.0); MEAN CORPUSCULAR VOLUME 77.6 fL (80.0-100.0); MEAN PLATELET VOLUME 8.3 fL (7.4-11.0); MONOCYTES # (AUTO) 0.5 x10^3/uL (0.3-0.8); MONOCYTES % (AUTO) 7.9 % (0.0-13.0); NEUTROPHILS # (AUTO) 4.2 x10^3/uL (2.2-4.8); NEUTROPHILS % (AUTO) 68.6 % (42.0-75.0); PLATELET COUNT 297 X10^3/uL (150.0-450.0); RED BLOOD COUNT 2.73 X10^6/uL (3.5-5.4); WHITE BLOOD COUNT 6.1 X10^3/uL (3.6-10.0)
[2023-10-02] MEDS ORDERED: CONSULT PHARMACY - POTASSIUM & MAGNESIUM XX SCH ×2 (07:00→09:00)
[2023-10-02 07:04] LABS: HEMOGLOBIN 6.8 g/dL (12.0-16.0)
[2023-10-02 07:12] LABS: ALANINE AMINOTRANSFERASE 44 Units/L (12-78); ALBUMIN 2.9 g/dL (3.4-5.0); ALKALINE PHOSPHATASE 213 Units/L (46-116); ASPARTATE AMINO TRANSFERASE 19 Units/L (15-37); BLOOD UREA NITROGEN 85 mg/dL (7-18); CALCIUM 8.9 mg/dL (8.5-10.1); CARBON DIOXIDE 33.7 mmol/L (21-32); CHLORIDE 99 mmol/L (98-107); COR CA(FOR HYPOALB) 9.8 mg/dL (8.5-10.1); CREATININE 4.56 mg/dL (0.55-1.02); GLUCOSE 92 mg/dL (65-99); MAGNESIUM 2.5 mg/dL (2.0-2.9); SODIUM 137 mmol/L (136-145); TOTAL PROTEIN 7.4 g/dL (6.4-8.2); eGFR NON BLACK RACES 10 (>60)
[2023-10-02] MEDS: NS 1,000 ML IV 1,000 ML IV SCH (07:45)
[2023-10-02] MEDS ORDERED: INJECTAFER 750 MG in NS 250 ML IV 250 ML IV NR (08:00)
[2023-10-02] MEDS ORDERED: DILTIAZEM HCL 300 MG PO SCH (09:00)
[2023-10-02] MEDS: COREG TAB 3.125 MG PO SCH ×2 (09:17→21:36)
[2023-10-02] MEDS: APRESOLINE TAB 25 MG PO SCH ×2 (09:17→21:39)
[2023-10-02] MEDS: CARDIZEM CD 180 MG 24-HR PO SCH (09:17)
[2023-10-02] MEDS: CARDIZEM CD 120 MG 24-HR PO SCH (09:17)
[2023-10-02] MEDS: PROTONIX INJ 40 MG VIAL IVP SCH ×2 (09:17→21:42)
[2023-10-02] MEDS: HEMOCYTE-PLUS PO SCH (09:17)
[2023-10-02] MEDS: HumuLIN 70/30 (NovoLIN 70/30) SC SCH ×2 (09:36→21:48)
[2023-10-02] MEDS: NS + KCL 20 MEQ/L 1,000 ML IV SCH ×2 (09:36→23:15)
--- NOTE | 2023-10-02 09:41 | RAD ---
EXAM:ACUTE ABDOMEN SERI ESHISTORY:DIABETIC GASTROPARESIS;COMPARISON:Abdominal series 09/11/2021FINDINGS:Lungs are clear. Elevation of the right hemidiaphragm is stable. Cardiomegaly is present.Gas is present in nondilated bowel. No bowel obstruction or free air. There is not an abnormally large amount of stool in the colon.No significant abnormal calcification is seen.The bones are unremarkable.Surgical clips are present in the right upper abdomen, probably from a cholecystectomy.IMPRESSION:1. CardiomegalyTHIS IS AN ELECTRONICALLY VERIFIED FINAL REPORT10/02/2023 9:37 AM - Electronically signed by Tristan Balbuena MD
[2023-10-02] MEDS: ULTRAM PO PRN ×2 (10:30→21:37)
--- NOTE | 2023-10-02 11:13 | RAD ---
EXAM:CHEST, PA/LAT ADULTHISTORY:HX CHF ;COMPARISON:11/10/2022FINDINGS:The lungs are clear. No pneumothorax or effusion.Cardiomegaly is present.The bones are unremarkable.IMPRESSION:1. CardiomegalyTHIS IS AN ELECTRONICALLY VERIFIED FINAL REPORT10/02/2023 11:10 AM - Electronically signed by Tristan Balbuena MD
[2023-10-02] MEDS ORDERED: NS 250 ML IV 250 ML IV ONE (13:27)
[2023-10-02] MEDS ORDERED: LASIX IVP ONE ×2 (13:39→20:00)
[2023-10-02 18:53] LABS: HEMATOCRIT 25.2 % (36.0-47.0); HEMOGLOBIN 8.2 g/dL (12.0-16.0)
[2023-10-02] MEDS: SNACK - Diabetic Appropriate PO SCH (20:14)
[2023-10-02] MEDS ORDERED: VISTARIL PO PRN (21:22)
[2023-10-02] MEDS: NovoLIN R (or HumuLIN R) SC PRN (21:35)
[2023-10-03 00:53] LABS: BILIRUBIN,URINE NEGATIVE (NEGATIVE); BLOOD/HEMOGLOBIN,URINE 1+ (NEGATIVE); GLUCOSE, URINE 1+ (NEGATIVE); KETONES,URINE NEGATIVE (NEGATIVE); LEUKOCYTE ESTERASE ,URINE NEGATIVE (NEGATIVE); NITRITES,URINE NEGATIVE (NEGATIVE); PROTEIN,URINE 3+ (NEGATIVE); UROBILINOGEN,URINE NORMAL (NORMAL)
[2023-10-03 00:59] LABS: APPEARANCE,URINE CLEAR (CLEAR); COLOR,URINE PALE YELLOW (YELLOW)
[2023-10-03 01:00] LABS: BACTERIA,URINE NEGATIVE /HPF (NEGATIVE); RBC,URINE NONE SEEN /HPF (0-3); SQUAMOUS EPITHELIAL CELL,UR RARE /HPF (NEGATIVE)
[2023-10-03] MEDS: ULTRAM PO PRN (04:14)
[2023-10-03] MEDS: CATAPRES TAB 0.1 MG PO SCH ×3 (06:05→22:15)
[2023-10-03] MEDS: NovoLIN R (or HumuLIN R) SC PRN ×3 (06:07→17:21)
[2023-10-03 06:30] LABS: BASOPHILS # (AUTO) 0.1 X10^3/uL (0.0-0.1); BASOPHILS % (AUTO) 0.7 % (0.2-1.0); EOSINOPHILS # (AUTO) 0.1 x10^3/uL (0.0-0.2); EOSINOPHILS % (AUTO) 0.7 % (0.9-2.9); HEMATOCRIT 26.3 % (36.0-47.0); HEMOGLOBIN 8.6 g/dL (12.0-16.0); LYMPHOCYTES # (AUTO) 0.8 X10^3/uL (1.3-2.9); LYMPHOCYTES % (AUTO) 10.2 % (21.0-51.0); MEAN CORPUSCULAR HEMOGLOBIN 25.8 pg (27.0-34.0); MEAN CORPUSCULAR HGB CONC 32.7 g/dL (33.0-35.0); MEAN CORPUSCULAR VOLUME 78.9 fL (80.0-100.0); MEAN PLATELET VOLUME 8.5 fL (7.4-11.0); MONOCYTES # (AUTO) 0.4 x10^3/uL (0.3-0.8); MONOCYTES % (AUTO) 4.5 % (0.0-13.0); NEUTROPHILS # (AUTO) 6.7 x10^3/uL (2.2-4.8); NEUTROPHILS % (AUTO) 83.9 % (42.0-75.0); PLATELET COUNT 296 X10^3/uL (150.0-450.0); RED BLOOD COUNT 3.33 X10^6/uL (3.5-5.4); RED CELL DISTRIBUTION WIDTH 17.1 % (11.6-16.5)
[2023-10-03 06:48] LABS: ALBUMIN 3.2 g/dL (3.4-5.0); CALCIUM 9.2 mg/dL (8.5-10.1); CARBON DIOXIDE 27.7 mmol/L (21-32); COR CA(FOR HYPOALB) 9.8 mg/dL (8.5-10.1); CREATININE 4.01 mg/dL (0.55-1.02); POTASSIUM 3.6 mmol/L (3.5-5.1); TOTAL PROTEIN 8.2 g/dL (6.4-8.2)
[2023-10-03] MEDS ORDERED: K-DUR TAB 20 MEQ PO SCH (09:00)
[2023-10-03] MEDS: LASIX IVP SCH (10:08)
[2023-10-03] MEDS: HEMOCYTE-PLUS PO SCH (10:08)
[2023-10-03] MEDS: PROTONIX INJ 40 MG VIAL IVP SCH ×2 (10:08→20:15)
[2023-10-03] MEDS: APRESOLINE TAB 25 MG PO SCH ×2 (10:08→20:16)
[2023-10-03] MEDS: CARDIZEM CD 180 MG 24-HR PO SCH (10:09)
[2023-10-03] MEDS: CARDIZEM CD 120 MG 24-HR PO SCH (10:09)
[2023-10-03] MEDS: COREG TAB 3.125 MG PO SCH ×2 (10:09→20:16)
[2023-10-03] MEDS: NS + KCL 20 MEQ/L 1,000 ML IV SCH ×2 (10:09→23:20)
[2023-10-03] MEDS: HumuLIN 70/30 (NovoLIN 70/30) SC SCH ×2 (10:15→20:28)
[2023-10-03] MEDS ORDERED: ULTRAM PO NR (11:00)
[2023-10-03] MEDS: SNACK - Diabetic Appropriate PO SCH (20:36)
[2023-10-03] MEDS ORDERED: ULTRAM PO PRN (21:00)
[2023-10-04] MEDS: NS + KCL 20 MEQ/L 1,000 ML IV SCH (02:33)
[2023-10-04] MEDS: CATAPRES TAB 0.1 MG PO SCH (05:18)
--- NOTE | 2023-10-04 06:17 | RAD ---
EXAM:CHEST, 1 VIEWHISTORY:CHF;COMPARISON:10/02/2023. br.br.br.br chestFINDINGS:Cardiac silhouette is stably enlarged. Mediastinal contours appear normal. Mild worsening basilar predominant airspace opacities. There is pulmonary vascular congestion. Can not exclude small pleural effusions. No pneumothorax. Soft tissue attenuation from the chest wall limits evaluation.IMPRESSION:Mildly worsened airspace disease likely pulmonary edema.THIS IS AN ELECTRONICALLY VERIFIED FINAL REPORT10/04/2023 6:13 AM - Electronically signed by Luther Rachel MD
[2023-10-04 07:03] LABS: BASOPHILS # (AUTO) 0.1 X10^3/uL (0.0-0.1); BASOPHILS % (AUTO) 1.1 % (0.2-1.0); EOSINOPHILS # (AUTO) 0.3 x10^3/uL (0.0-0.2); EOSINOPHILS % (AUTO) 4.9 % (0.9-2.9); HEMATOCRIT 23.7 % (36.0-47.0); HEMOGLOBIN 7.6 g/dL (12.0-16.0); LYMPHOCYTES # (AUTO) 1.2 X10^3/uL (1.3-2.9); LYMPHOCYTES % (AUTO) 18.1 % (21.0-51.0); MEAN CORPUSCULAR HEMOGLOBIN 25.6 pg (27.0-34.0); MEAN CORPUSCULAR HGB CONC 32.2 g/dL (33.0-35.0); MEAN CORPUSCULAR VOLUME 79.7 fL (80.0-100.0); MEAN PLATELET VOLUME 8.3 fL (7.4-11.0); MONOCYTES # (AUTO) 0.5 x10^3/uL (0.3-0.8); MONOCYTES % (AUTO) 8.3 % (0.0-13.0); NEUTROPHILS # (AUTO) 4.4 x10^3/uL (2.2-4.8); NEUTROPHILS % (AUTO) 67.6 % (42.0-75.0); PLATELET COUNT 257 X10^3/uL (150.0-450.0); RED BLOOD COUNT 2.98 X10^6/uL (3.5-5.4); RED CELL DISTRIBUTION WIDTH 17.3 % (11.6-16.5); WHITE BLOOD COUNT 6.5 X10^3/uL (3.6-10.0)
[2023-10-04 07:17] LABS: ALANINE AMINOTRANSFERASE 29 Units/L (12-78); ALBUMIN 2.8 g/dL (3.4-5.0); ALKALINE PHOSPHATASE 192 Units/L (46-116); ASPARTATE AMINO TRANSFERASE 26 Units/L (15-37); BLOOD UREA NITROGEN 72 mg/dL (7-18); CALCIUM 8.8 mg/dL (8.5-10.1); CARBON DIOXIDE 29.5 mmol/L (21-32); CHLORIDE 101 mmol/L (98-107); COR CA(FOR HYPOALB) 9.8 mg/dL (8.5-10.1); CREATININE 3.94 mg/dL (0.55-1.02); GLUCOSE 98 mg/dL (65-99); POTASSIUM 3.4 mmol/L (3.5-5.1); SODIUM 138 mmol/L (136-145); TOTAL PROTEIN 7.3 g/dL (6.4-8.2); eGFR NON BLACK RACES 12 (>60)
--- NOTE | 2023-10-04 07:44 | RAD ---
EXAM:Portable AP chestHISTORY:CHFCOMPARISON:10/03/2023 r.br.br.br the vascular congestion and edema. There is mild residual prominence of the central pulmonary vessels. No new abnormality is noted.IMPRESSION:Interval improvement.THIS IS AN ELECTRONICALLY VERIFIED FINAL REPORT10/04/2023 7:41 AM - Electronically signed by Jarett Urias MD
[2023-10-04] MEDS ORDERED: CONSULT PHARMACY - POTASSIUM & MAGNESIUM XX SCH (08:00)
[2023-10-04] MEDS: HumuLIN 70/30 (NovoLIN 70/30) SC SCH (08:29)
[2023-10-04] MEDS: APRESOLINE TAB 25 MG PO SCH (08:31)
[2023-10-04] MEDS: CARDIZEM CD 180 MG 24-HR PO SCH (08:32)
[2023-10-04] MEDS: CARDIZEM CD 120 MG 24-HR PO SCH (08:32)
[2023-10-04] MEDS: PROTONIX INJ 40 MG VIAL IVP SCH (08:32)
[2023-10-04] MEDS: HEMOCYTE-PLUS PO SCH (08:32)
[2023-10-04] MEDS: COREG TAB 3.125 MG PO SCH (08:32)
[2023-10-04] MEDS: LASIX IVP SCH (08:32)
[2023-10-04 09:40] VITALS: BP 199/81; PULSE 56; RESP 20; TEMP 97.1; O2SAT 99
[2023-10-04] MEDS ORDERED: NS + KCL 40 MEQ/L 1,000 ML IV SCH (11:00)
== END 2023-10-04 13:50 | disposition home health service (06) ==
LOC: MED/SURG
PROVIDERS: ADMIT Internal Medicine; ATTEND Internal Medicine
DX: I50.43 Acute on chronic combined systolic (congestive) and diastolic (congestive) heart failure; R06.02 Shortness of breath; N17.8 Other acute kidney failure; K92.1 Melena; D50.8 Other iron deficiency anemias; R53.1 Weakness; E86.0 Dehydration; E87.6 Hypokalemia; N18.9 Chronic kidney disease, unspecified; E11.43 Type 2 diabetes mellitus with diabetic autonomic (poly)neuropathy; R11.2 Nausea with vomiting, unspecified; K31.84 Gastroparesis; I13.0 Hypertensive heart and chronic kidney disease with heart failure and stage 1 through stage 4 chronic kidney disease, or unspecified chronic kidney disease; R26.89 Other abnormalities of gait and mobility